=== PATIENT | male | born 1950 | race Caucasian/White ===

== ENCOUNTER 2020-08-24 11:20 | Outpatient (REF) | payer MEDICARE, MEDICAID, SELFPAY | END 2020-08-24 11:21 | disposition home or self-care (01) | LOC: HO.LAB 11:20 | PROVIDERS: Visit Provider Internal Medicine | DX: Z20.822 Contact with and (suspected) exposure to COVID-19 (principal) | CPT/HCPCS: 36415; C9803; U0003 ==

== ENCOUNTER 2020-10-04 16:35 | Outpatient (REF) | payer MEDICARE, MEDICAID, SELFPAY ==
--- NOTE | ~2020-10-04 | XR_ITS ---
EXAMINATION: XR LUMBOSACRAL SPINE CLINICAL INFORMATION: Spondylosis. Pain. COMPARISON: None TECHNIQUE: Four views of the lumbosacral spine. FINDINGS: There is maintained lumbar lordosis. The vertebral heights and alignment appears normal. There is severe loss of disc height virtually at every disc level with moderate ventral and lateral spondylosis and bridging osteophytes. There is minimal dextroscoliosis. No acute fracture or lytic process seen. There is atherosclerotic calcification of the entire abdominal aorta and common iliac vessels without aneurysm. XR/XR lumbar spine 2-3V IMPRESSION: 1. Mild dextroscoliosis. 2. Severely degenerative disc changes with moderate ventral and lateral spondylosis. 3. No acute fracture or lytic process.
[2020-10-04 17:52] LABS: Estimated Average Glucose 160 mg/dL; Hemoglobin A1c % 7.2 %
[2020-10-04 17:55] LABS: Anion Gap 13 (12-20); Blood Urea Nitrogen 29 mg/dL (9-16); Calcium 8.9 mg/dL (8.4-10.2); Carbon Dioxide 38 mmol/L (22-29); Chloride 94 mmol/L (96-108); Cholesterol 180 mg/dL; Estimated Glomerular Filt Rate 42; Glucose Random 127 mg/dL (60-115); HDL Cholesterol 33 mg/dL; Potassium 4.2 mmol/L (3.3-5.1); Sodium 141 mmol/L (135-145); Triglycerides 634 mg/dL
== END 2020-10-04 16:36 | disposition home or self-care (01) ==
LOC: HO.LAB 16:35
PROVIDERS: PCP Physician Assistant; Referring Provider Student in an Organized Health Care Education/Training Program; Visit Provider Physician Assistant
DX: M47.897 Other spondylosis, lumbosacral region (principal); E11.51 Type 2 diabetes mellitus with diabetic peripheral angiopathy without gangrene; I10 Essential (primary) hypertension; Z79.899 Other long term (current) drug therapy
CPT/HCPCS: 36415; 72100; 80048; 80061; 83036

== ENCOUNTER 2021-01-01 12:24 | Emergency (ER) | payer MEDICARE, MEDICAID, SELFPAY ==
[2021-01-01 12:31] VITALS: BP 107/49; PULSE 45; RESP 16; TEMP 36.8; O2SAT 98; BMI 38.6
--- NOTE | 2021-01-01 12:40 | ECG_ITS ---
Test Reason : DIZZINESS Blood Pressure : / mmHG Vent. Rate : 047 BPM Atrial Rate : 047 BPM P-R Int : 206 ms QRS Dur : 152 ms QT Int : 562 ms P-R-T Axes : 056 021 107 degrees QTc Int : 497 ms Sinus bradycardia Left bundle branch block Abnormal ECG When compared with ECG of 26-MAR-2020 17:37, No significant change was found Referred By: Generic ED Physician Electronically Signed By:KEVIN HASSAN
--- NOTE | 2021-01-01 13:41 | ED.DIZZY ---
HPI - Dizziness General Chief Complaint: Dizziness Stated Complaint: lightheaded Time Seen by Provider: 01/01/21 13:13 Source: patient and other (Significant other, Inge) Mode of arrival: ambulatory Limitations: no limitations History of Present Illness HPI Narrative: 70-year-old male who presents emergency department for evaluation of lightheadedness. He states that this morning at around 10:00 a.m. she developed lightheadedness. He denies the sensation of feeling like he was going to pass out or vertigo sensation. He states that he used his pulse oximeter to check his pulse and his pulse rate was 43-44 beats per minute. Patient states that he has a implanted cardiac defibrillator/pacemaker. He states when he initially had this implanted in 2018 his rate was set at 61 and then decreased to 51 since his [place] heartbeat was greater than 51. He continued to experience brief episodes of lightheadedness throughout the day. These episodes were not related to position change or to exertion. He denied being ill in any other way. He denied fever, chills, chest pain, shortness of breath, dyspnea on exertion, abdominal pain, change in his bowel movements-he states that he is constipated. Patient states that he goes to [facility] for his cardiac care and is treated by Dr. Reed Suarez at . Related Data Allergies Allergy/AdvReac Type Severity Reaction Status Date / Time No Known Allergies Allergy Unknown Verified 01/01/21 12:39 Review of Systems Review of Systems: Yes all other systems are reviewed and are negative [facility] Past Medical History [facility] Narrative: Past medical history: Diabetes mellitus, hypertension, hyperlipidemia, coronary artery disease/ID with a stent 2000, CHF, ventricular tachycardia with AICD/pacemaker. Past surgical history: Left hip replacement, right knee replacement, carotid endarterectomy. Social history: The patient is a former smoker and stop smoking 4 years prior, he denies alcohol use, he smokes marijuana daily. Medical History Diabetes Pacemaker Ventricular tachyarrhythmia Social History Social History Advance Directives: No Advance Directives Information Provided: Yes Physical Exam Vital Signs: Vital Signs: Last Vital Signs Temp 97.6 F 01/01/21 15:16 Pulse 47 L 01/01/21 15:16 Resp 14 01/01/21 15:16 BP 109/46 L 01/01/21 15:16 Pulse Ox 93 01/01/21 15:16 Body Mass Index 38.6 Const: General: cooperative Orientation/consciousness: oriented to person and oriented to place Limitations: no limitations HENMT: Head: Yes normal to inspection, Yes normocephalic and Yes atraumatic Ears: external ears normal General nose exam: Normal external nose present Face and sinus: Yes normal facial exam Mouth: Normal oral and palatal mucosa present Throat: Yes posterior oropharynx normal Eyes: Periorbital: periorbital findings normal Eyelids: Yes eyelids normal Conjunctivae: conjunctivae normal Sclerae: sclerae normal Corneas: corneas normal Pupils: Equal, round and reactive pupils present Direct Ophthalmoscopy: normal light reflex Neck: Neck: Yes full ROM, Yes no lymphadenopathy, Yes no meningeal signs, Yes trachea midline and Yes supple Chest: Chest palpation & inspection: normal inspection of the chest and normal palpation of entire chest wall Resp: Effort & Inspection: normal respiratory effort and able to speak in complete sentences Auscultation: clear to auscultation bilaterally Cardio: Rate: bradycardic Rhythm: regular rhythm Heart sounds: S1 normal heart sound present, S2 normal heart sound present and no murmurs GI: Inspection: Yes normal to inspection Palpation (GI): Soft to palpation, nontender, no guarding, not rigid and No hepatosplenomegaly present : General: Yes no CVA tenderness Back/Spine/Pelvis: Back: no CVA tenderness Cervical Spine: normal cervical lordosis Thoracic/Lumbar Spine: thoracic and lumbar spine normal to inspection Skin: Lesions: no lesions Rashes: no rashes Wounds: no wounds Neuro: General: oriented to person, oriented to place and no meningeal signs Cranial nerves: Yes CN's II-XII intact bilaterally and Yes Equal, round and reactive pupils present Cognition (Neuro): normal cognition Motor exam (neuro): 5/5 motor strength present throughout Extrem: General: Yes normal to inspection and Yes full ROM Psych: Appearance: well kempt Mental Status: mental status grossly normal Speech and movement: Normal speech and movement present Affect: normal affect Attitude: cooperative Thought process: Normal thought process present Thought content: Normal thought content present Course Course Course Narrative: 70-year-old male who presents emergency department for evaluation of episodic lightheadedness with multiple episodes today for throughout the day. These episodes are not related to position change or his exertion level. The patient does have an AICD/dual chamber pacemaker that he believes is set below his [place] heartbeat at 50 beats per minute. Patient's vital signs revealed that he was bradycardic with a heart rate below 50 with a pacemaker it is firing intermittently. Patient's blood pressure was slightly low at 107/49. The patient's physical examination was otherwise unremarkable. I did order a cardiac workup on this patient to to CBC, CMP, troponin, PT/INR, PTT. EKG will also be obtained. 1353: 12 EKG revealed a sinus bradycardia with first-degree AV block with a rate of 47 and CO interval of 206 milliseconds, patient has poor R-wave progression V1 through V3 and a left bundle-branch block. 1523: Patient's laboratory evaluation was unremarkable except for a detectable high sensitivity troponin. Given his presentation, I do not think the patient has had myocardial injury is the cause of his symptoms. The patient does remain persistently bradycardic with heart rates less than 50 however his pacemaker does kicking to give him occasional beats. I did discuss the patient's presentation with Dr. Peters who was covering for the patient's executive business coach. At this time, we both feel the patient can be discharged home and have his pacemaker interrogated as an outpatient. Patient was advised to call the office on Saturday morning to get a follow-up appointment. Told the patient to stay home and to rest. I told him if his symptoms get worse or if he develops any new symptoms he should return to the emergency department for re-evaluation MDM - Dizziness Lab Data Result diagrams: 01/01/21 14:02 01/01/21 14:02 Labs: Lab Results 01/01/21 01/01/21 01/01/21 Range/Units 14:02 14:02 14:02 WBC 12.5 H (4.8-10.8) X10*3/uL RBC 4.94 (4.60-5.80) X10*6/uL Hgb 15.0 (14.0-18.0) g/dl Hct 45.8 (42-52) % MCV 92.7 (80-98) fL MCH 30.4 (27.0-33.0) pg MCHC 32.8 (31.0-36.0) g/dl RDW 12.8 (11.0-16.0) % Plt Count 256 (160-400) X10*3/uL MPV 9.1 L (9.4-12.4) fL Immature Gran % (Auto) 0.5 H (0.0-0.4) % Neut % (Auto) 53.7 (45-73) % Lymph % (Auto) 39.1 (20-40) % Burnett % (Auto) 4.5 (2-11) % Eos % (Auto) 2.0 (0-4) % Baso % (Auto) 0.2 (0-2) % Lymph # (Auto) 4.9 (1.2-4.9) X10*3/uL Burnett # (Auto) 0.6 (0.1-1.2) X10*3/uL Eos # (Auto) 0.3 (0.0-0.4) X10*3/uL Baso # (Auto) 0.0 (0.0-0.2) X10*3/uL Abs Immat Gran (auto) 0.06 H (0.00-0.03) X10*3/uL Absolute Neuts (auto) 6.7 (2.0-8.3) X10*3/uL Absolute Nucleated RBC 0.000 (0.0-0.012) X10*3/uL Nucleated RBC % (auto) 0.0 (0.0-0.2) /100WBC PT (10.8-13.0) SEC INR (0.9-1.1) APTT (24.1-38.0) SEC Sodium 142 (135-145) mmol/L Potassium 3.9 (3.3-5.1) mmol/L Chloride 98 (96-108) mmol/L Carbon Dioxide 35 H (22-29) mmol/L Anion Gap 13 (12-20) BUN 34 H (9-16) mg/dL Creatinine 1.99 H (0.5-1.4) mg/dL Estim Creat Clear Calc 48.6 Estimated GFR 33 Random Glucose 122 H (60-115) mg/dL Calcium 9.2 (8.4-10.2) mg/dL Total Bilirubin 0.6 (0.0-1.0) mg/dL AST 25 (5-37) U/L ALT 24 (0-40) U/L Alkaline Phosphatase 117 (39-117) U/L Troponin I High Sens 17.6 (<3.5-35.0) ng/L Total Protein 7.1 (6.5-8.0) g/dL Albumin 4.3 (3.5-5.0) g/dL 01/01/21 Range/Units 14:03 WBC (4.8-10.8) X10*3/uL RBC (4.60-5.80) X10*6/uL Hgb (14.0-18.0) g/dl Hct (42-52) % MCV (80-98) fL MCH (27.0-33.0) pg MCHC (31.0-36.0) g/dl RDW (11.0-16.0) % Plt Count (160-400) X10*3/uL MPV (9.4-12.4) fL Immature Gran % (Auto) (0.0-0.4) % Neut % (Auto) (45-73) % Lymph % (Auto) (20-40) % Burnett % (Auto) (2-11) % Eos % (Auto) (0-4) % Baso % (Auto) (0-2) % Lymph # (Auto) (1.2-4.9) X10*3/uL Burnett # (Auto) (0.1-1.2) X10*3/uL Eos # (Auto) (0.0-0.4) X10*3/uL Baso # (Auto) (0.0-0.2) X10*3/uL Abs Immat Gran (auto) (0.00-0.03) X10*3/uL Absolute Neuts (auto) (2.0-8.3) X10*3/uL Absolute Nucleated RBC (0.0-0.012) X10*3/uL Nucleated RBC % (auto) (0.0-0.2) /100WBC PT 11.1 (10.8-13.0) SEC INR 0.9 (0.9-1.1) APTT 31.9 (24.1-38.0) SEC Sodium (135-145) mmol/L Potassium (3.3-5.1) mmol/L Chloride (96-108) mmol/L Carbon Dioxide (22-29) mmol/L Anion Gap (12-20) BUN (9-16) mg/dL Creatinine (0.5-1.4) mg/dL Estim Creat Clear Calc Estimated GFR Random Glucose (60-115) mg/dL Calcium (8.4-10.2) mg/dL Total Bilirubin (0.0-1.0) mg/dL AST (5-37) U/L ALT (0-40) U/L Alkaline Phosphatase (39-117) U/L Troponin I High Sens (<3.5-35.0) ng/L Total Protein (6.5-8.0) g/dL Albumin (3.5-5.0) g/dL ECG Data Attestation: I personally reviewed and interpreted this ECG as follows: Interpretation: 1302: Bradycardia with a rate of 47, first-degree AV block CO interval 206 milliseconds, prolonged QRS duration of 152 milliseconds and prolonged QTC of 497 milliseconds. The patient has a left bundle-branch block. He has poor R-wave progression from V1 to V3. There is no ST segment elevation, no ST segment depression, no T-wave abnormalities. There is no old EKG for comparison. Discharge Plan Discharge Clinical Impression: Light-headedness, Bradycardia Patient Disposition: Home, Self-Care Additional Instructions: Your laboratory evaluation was unremarkable. During your time here in the emergency department, we monitored you on the cardiac technician. You remained bradycardic with heart rates below 50. On the monitor, your pacemaker would kick in and occasionally give you paced beats suggesting that the pacemaker is working. I am concerned that you me need to have your pacemaker set at a higher rate or it is possible that your lightheadedness could be secondary to arrhythmia is that we did not detect in the emergency department. I did speak to Dr. Peters who is covering for your executive business coach. He wants you to call the office on 01/03/2021 to schedule appointment to be seen that day to have your pacemaker evaluated/interrogated. Please stay home and rest and do not over exert yourself. Please return to the emergency department if your symptoms get worse or if you develop any symptoms that are concerning to you.
[2021-01-01 13:51] VITALS: BP 102/49; BP 104/47; PULSE 45; PULSE 46
[2021-01-01 13:52] VITALS: BP 98/46; PULSE 48
[2021-01-01 14:09] LABS: MANUAL DIFF FLAG NO
[2021-01-01 14:11] LABS: Basophils Percent Auto 0.2 % (0-2); Eosinophils Absolute Auto 0.3 X10*3/uL (0.0-0.4); Hematocrit 45.8 % (42-52); Imm Gran Abs Auto 0.06 X10*3/uL (0.00-0.03); Imm Gran Pct Auto 0.5 % (0.0-0.4); Lymphocytes Absolute Auto 4.9 X10*3/uL (1.2-4.9); Lymphocytes Percent Auto 39.1 % (20-40); Mean Corpuscular HGB Conc 32.8 g/dl (31.0-36.0); Mean Corpuscular Hemoglobin 30.4 pg (27.0-33.0); Mean Corpuscular Volume 92.7 fL (80-98); Mean Platelet Volume 9.1 fL (9.4-12.4); Monocytes Absolute Auto 0.6 X10*3/uL (0.1-1.2); Monocytes Percent Auto 4.5 % (2-11); Neutrophils Absolute Auto 6.7 X10*3/uL (2.0-8.3); Neutrophils Percent Auto 53.7 % (45-73); Platelet Count 256 X10*3/uL (160-400); Red Blood Count 4.94 X10*6/uL (4.60-5.80); Red Cell Distribution Width 12.8 % (11.0-16.0); White Blood Count 12.5 X10*3/uL (4.8-10.8)
[2021-01-01 14:22] LABS: INTERNATIONAL NORM RATIO 0.9 (0.9-1.1); Prothrombin Time 11.1 SEC (10.8-13.0)
[2021-01-01 14:24] LABS: Partial Thromboplastin Time 31.9 SEC (24.1-38.0)
[2021-01-01 14:37] LABS: Alanine Aminotransferase 24 U/L (0-40); Albumin Level 4.3 g/dL (3.5-5.0); Alkaline Phosphatase 117 U/L (39-117); Anion Gap 13 (12-20); Aspartate Amino Transferase 25 U/L (5-37); Bilirubin Total 0.6 mg/dL (0.0-1.0); Blood Urea Nitrogen 34 mg/dL (9-16); Calcium 9.2 mg/dL (8.4-10.2); Carbon Dioxide 35 mmol/L (22-29); Chloride 98 mmol/L (96-108); Creatinine Clr Calc Pharmacy 48.6; Estimated Glomerular Filt Rate 33; Glucose Random 122 mg/dL (60-115); Potassium 3.9 mmol/L (3.3-5.1); Sodium 142 mmol/L (135-145); Total Protein 7.1 g/dL (6.5-8.0)
[2021-01-01 14:40] LABS: Troponin-I High Sensitivity 17.6 ng/L (<3.5-35.0)
[2021-01-01 15:16] VITALS: BP 109/46; PULSE 47; RESP 14; TEMP 36.4; O2SAT 93
== END 2021-01-01 15:46 | disposition home or self-care (01) ==
PROVIDERS: Emergency Provider Emergency Medicine Emergency Medical Services; PCP Physician Assistant
DX: R42 Dizziness and giddiness (principal); R00.1 Bradycardia, unspecified; I44.0 Atrioventricular block, first degree; E11.9 Type 2 diabetes mellitus without complications; I11.0 Hypertensive heart disease with heart failure; I50.9 Heart failure, unspecified; E78.5 Hyperlipidemia, unspecified; I25.2 Old myocardial infarction; F12.90 Cannabis use, unspecified, uncomplicated; Z95.0 Presence of cardiac pacemaker; Z96.642 Presence of left artificial hip joint; Z96.651 Presence of right artificial knee joint; Z87.891 Personal history of nicotine dependence
CPT/HCPCS: 36415; 80053; 84484; 85025; 85610; 85730; 93005; 99284

== ENCOUNTER 2021-01-25 13:55 | Emergency (ER) | payer MEDICARE, MEDICAID, SELFPAY ==
--- NOTE | ~2021-01-25 | XR_ITS ---
EXAMINATION: XR RIBS, LEFT CLINICAL INFORMATION: Left-sided rib pain. COMPARISON: Chest radiograph dated 03/26/2020. TECHNIQUE: 3 views of the left ribs were obtained. FINDINGS: Lungs are clear. No consolidation, pneumothorax, or pleural effusion. The cardiomediastinal silhouette and pulmonary vasculature are normal. A left-sided single-lead pacemaker device appears in good position without abnormality. Old healed lateral left 7th through 11th rib fractures are noted. A definitive acute fracture is not seen. The soft tissues are unremarkable. XR/XR ribs LT min 3V w CXR1V IMPRESSION: 1. No acute cardiopulmonary process. 2. Old healed multilevel left rib fractures as detailed above without definitive acute fracture.
--- NOTE | ~2021-01-25 | CT_ITS ---
EXAMINATION: CT HEAD WITHOUT CONTRAST CT FACIAL BONES WITHOUT CONTRAST CT CERVICAL SPINE WITHOUT CONTRAST CLINICAL INFORMATION: Fall. COMPARISON: CT head CT cervical spine 03/29/2020 TECHNIQUE: Imaging was performed from the skull base to vertex without intravenous administration of contrast. In addition, helical noncontrast CT imaging was acquired through the cervical spine and facial bones and source images were reviewed along with axial reconstructions and sagittal and coronal MPRs. [This CT examination was performed using dose optimization techniques as appropriate, variously including the following: *Automated exposure control *Adjustment of mA and/or kV according to patient size (this includes techniques or standardized protocols for targeted exams where dose is matched to indication/reason for exam; i.e. extremities or head) *Use of iterative reconstruction technique] DLP: 1904 mGy-cm FINDINGS: HEAD: No intracranial mass, hemorrhage, or midline shift is visualized. There is generalized global volume loss. There is moderate prominence of the ventricles and the sulci . There are vascular calcifications of the internal carotid arteries bilaterally. No extra-axial collections are identified. FACIAL BONES: There is fracture of the inferior floor of the left orbit, blowout fracture. There is air in the left orbital cone. The globe in optic nerve are normal. There is no entrapment of the extraocular muscles. There is left orbital Remainder the facial bones are intact including the mandible and TMJ and zygomatic arch. Pterygoid plates are intact. No fluid in the paranasal sinuses. Moderate exophthalmos. CERVICAL SPINE: There is no evidence of acute cervical spine fracture. Vertebral bodies remain normal in height. There is multilevel degenerative spondylosis of the cervical spine. Cervical disc height narrowing and vertebral endplate spurs and facet joint arthrosis. No pre- or paravertebral soft tissue abnormality is identified. CT/CT cervical spine wo con IMPRESSION: 1. No acute intracranial abnormality. 2. Left orbital blowout fracture. 3. No acute abnormality of cervical spine. There is advanced degenerative spondylosis of the cervical spine.
[2021-01-25 14:21] VITALS: BP 94/50; PULSE 51; RESP 17; TEMP 36.8; O2SAT 92; BMI 38.2
--- NOTE | 2021-01-25 16:04 | ED.FALL ---
HPI - Fall General Chief Complaint: Fall Stated Complaint: fell Time Seen by Provider: 01/25/21 15:53 Source: patient Mode of arrival: ambulatory Limitations: no limitations History of Present Illness HPI Narrative: Patient comes to emergency room complaining of left ear swelling. Patient states that 1 hour prior to arrival, patient was walking, tripped on the sidewalk, states he fell face 1st into the concrete. Patient states he initially had ecchymosis under his left eye, also noticed that he had epistaxis from the left nostril. Patient blew his nose, and immediately he felt that his left eye started swelling . Patient denies any visual changes, denies pain with eye movement. Patient did not lose consciousness, states he is not on blood thinners, denies neck pain, also complaining of mild pain in the left ribs. Related Data Previous Rx's Medication Instructions Recorded amoxicillin-pot clavulanate 1 tab PO BID #20 tab 01/25/21 [Augmentin] oxycodone-acetaminophen [Percocet] 1 tab PO Q6H PRN #14 tab 01/25/21 Allergies Allergy/AdvReac Type Severity Reaction Status Date / Time No Known Allergies Allergy Unknown Verified 01/25/21 14:21 Review of Systems Review of Systems: Constitutional : No Weight loss, No Fever, No Chills, No Night Sweats, No Fatigue, No Malaise ENT/Mouth : No Hearing loss, No Ear Pain, No Nasal Congestion, No Sinus Pain, No Hoarseness, No sore throat, No Rhinorrhea, No Swallowing Difficulty Eyes: No Eye Pain, periorbital swelling and ecchymosis, No Redness, No Foreign Body, No Discharge, No Vision Changes Cardiovascular : No Chest Pain, No SOB, No Dyspnea on Exertion, No Orthopnea, No Edema, No Palpitations Respiratory : No Cough, No Sputum, No Wheezing, No Smoke Exposure, No Dyspnea Gastrointestinal : No Nausea, No Vomiting, No Diarrhea, No Constipation, No abdominal Pain, No Hematochezia, No Melena Genitourinary : no irregular bleeding, No Dysuria, No Urinary Frequency, No Hematuria, No Urinary Incontinence, No Urgency, No Flank Pain, No Urinary Flow Changes, No Hesitancy Musculoskeletal : No joint pain, No Myalgias, No Joint Swelling, complaining of left-sided rib pain Skin : No Skin Lesions, No rash Neuro : No Weakness, No Numbness, No Paresthesias, No Loss of Consciousness, No Dizziness, No Headache Psych : No Anxiety/Panic, No Depression, No SI/HI/AH/VH, No Social Issues, Heme/Lymph: No Bruising, No Bleeding,No Lymphadenopathy Endocrine : No Polyuria, No Polydipsia, No Temperature Intolerance PMFSH Past Medical History Medical History Diabetes Pacemaker Ventricular tachyarrhythmia Surgical History H/O carotid endarterectomy History of heart artery stent History of hip replacement Total knee replacement status Social History Social History Advance Directives: No Advance Directives Information Provided: Yes Physical Exam Vital Signs: Vital Signs: Last Vital Signs Temp 98.3 F 01/25/21 14:21 Pulse 54 01/25/21 18:22 Resp 17 01/25/21 18:22 BP 134/65 01/25/21 18:22 Pulse Ox 95 01/25/21 18:22 Body Mass Index 38.2 Appearance: Alert. Oriented X3. No acute distress. Eyes: Pupils equal, round and reactive to light. Significantly enlarged ecchymosis on the left eye, mild crepitus under the left eye ENT: Pharynx normal. Neck: Normal inspection. Neck supple. No lymph nodes noted. No crepitus CVS: Normal heart rate and rhythm. Pulses normal. Normal S1 and S2 Respiratory: No respiratory distress. Breath sounds normal. No Wheezing. No rales Abdomen: Soft and nontender. No rigidity. No distention. good BS x4 Skin: Skin warm and dry. Normal skin color. Normal skin turgor. Extremities: No lower extremity edema. No lower extremity edema. No Lacerations. No Rash Neuro: Oriented X 3. No motor deficit. No sensory deficit. Moving all extermities. No slurred speech. Course Course Course Narrative: Patient's visual acuity test was 20/40 while wearing his glasses. Patient states that his vision is at baseline. Patient continues being able to move his bowels with no restriction, no pain. Entrapment of the extraocular muscles is not suspected at this time Creatinine is at baseline I discussed the patient's CT scan findings and the physical exam with Dr. Guevara. At this time, patient can be discharged after getting antibiotics and pain medication. Patient will follow-up with Dr. Guevara. Patient received the 1st dose of Augmentin and oxycodone. Patient was instructed not to blow his nose. Epistaxis resolved. I discussed with the patient that he is not to blow his nose at all MDM - Fall Lab Data Result diagrams: 01/25/21 17:47 01/25/21 17:46 Labs: Lab Results 01/25/21 01/25/21 01/25/21 Range/Units 17:46 17:46 17:47 WBC 13.0 H (4.8-10.8) X10*3/uL RBC 4.93 (4.60-5.80) X10*6/uL Hgb 14.7 (14.0-18.0) g/dl Hct 45.6 (42-52) % MCV 92.5 (80-98) fL MCH 29.8 (27.0-33.0) pg MCHC 32.2 (31.0-36.0) g/dl RDW 13.1 (11.0-16.0) % Plt Count 222 (160-400) X10*3/uL MPV 9.0 L (9.4-12.4) fL Immature Gran % (Auto) 0.6 H (0.0-0.4) % Neut % (Auto) 56.0 (45-73) % Lymph % (Auto) 36.6 (20-40) % Gilliam % (Auto) 4.8 (2-11) % Eos % (Auto) 1.7 (0-4) % Baso % (Auto) 0.3 (0-2) % Lymph # (Auto) 4.8 (1.2-4.9) X10*3/uL Gilliam # (Auto) 0.6 (0.1-1.2) X10*3/uL Eos # (Auto) 0.2 (0.0-0.4) X10*3/uL Baso # (Auto) 0.0 (0.0-0.2) X10*3/uL Abs Immat Gran (auto) 0.08 H (0.00-0.03) X10*3/uL Absolute Neuts (auto) 7.3 (2.0-8.3) X10*3/uL Absolute Nucleated RBC 0.000 (0.0-0.012) X10*3/uL Nucleated RBC % (auto) 0.0 (0.0-0.2) /100WBC PT 12.4 (10.8-13.0) SEC INR 1.0 (0.9-1.1) Sodium 141 (135-145) mmol/L Potassium 3.6 (3.3-5.1) mmol/L Chloride 99 (96-108) mmol/L Carbon Dioxide 32 H (22-29) mmol/L Anion Gap 14 (12-20) BUN 24 H (9-16) mg/dL Creatinine 1.54 H (0.5-1.4) mg/dL Estim Creat Clear Calc 62.5 Estimated GFR 45 Random Glucose 158 H (60-115) mg/dL Calcium 9.3 (8.4-10.2) mg/dL Imaging Data Ribs and chest x-ray: Radiologist's impression: [address] [id number] ReportSigned Patient: Michael SalinasMR#: [id number]: 1950cct:[id number]/Sex: 70 / MADM Date: 01/25/21Loc: HO.EDAttending Dr: Ordering Physician: TREASURE WATSON MD Date of Service: 01/25/21 Procedure(s): XR ribs LT min 3V w CXR1V Accession Number(s): [id number] cc: TREASURE WATSON MD~ EXAMINATION: XR RIBS, LEFT CLINICAL INFORMATION: Left-sided rib pain. COMPARISON: Chest radiograph dated 03/26/2020. TECHNIQUE: 3 views of the left ribs were obtained. FINDINGS: Lungs are clear. No consolidation, pneumothorax, or pleural effusion. The cardiomediastinal silhouette and pulmonary vasculature are normal. A left-sided single-lead pacemaker device appears in good position without abnormality. Old healed lateral left 7th through 11th rib fractures are noted. A definitive acute fracture is not seen. The soft tissues are unremarkable. XR/XR ribs LT min 3V w CXR1V IMPRESSION: 1. No acute cardiopulmonary process. 2. Old healed multilevel left rib fractures as detailed above without definitive acute fracture. Head neck and facial bone CT: Radiologist's impression: FINDINGS: Lungs are clear. No consolidation, pneumothorax, or pleural effusion. The cardiomediastinal silhouette and pulmonary vasculature are normal. A left-sided single-lead pacemaker device appears in good position without abnormality. Old healed lateral left 7th through 11th rib fractures are noted. A definitive acute fracture is not seen. The soft tissues are unremarkable. XR/XR ribs LT min 3V w CXR1V IMPRESSION: 1. No acute cardiopulmonary process. 2. Old healed multilevel left rib fractures as detailed above without definitive acute fracture. Discharge Plan Discharge Clinical Impression: Epistaxis, Acute costochondritis Fracture of orbital floor Qualifiers: Encounter type: initial encounter Laterality: left Patient Disposition: Home, Self-Care Instructions: Facial Fracture (ED), Nosebleed (ED), Costochondritis (ED) Additional Instructions: Do not blow your nose. Please follow-up with ophthalmology tomorrow. Please follow-up with your primary care physician tomorrow. If you have any worsening or new symptoms, please return to the emergency room or call 911 Prescriptions: New amoxicillin-pot clavulanate [Augmentin] 875-125 mg tablet 1 tab PO BID Qty: 20 RF: 0 oxycodone-acetaminophen [Percocet] 5-325 mg tablet 1 tab PO Q6H PRN (Reason: pain) Qty: 14 RF: 0
[2021-01-25] MEDS: Oxymetazoline HCl 0.05 % Nasal 15 ML SPRAY 2 SPRAY NOSTRIL-B (16:27)
[2021-01-25 17:52] LABS: MANUAL DIFF FLAG NO
[2021-01-25 17:56] LABS: Basophils Percent Auto 0.3 % (0-2); Eosinophils Absolute Auto 0.2 X10*3/uL (0.0-0.4); Eosinophils Percent Auto 1.7 % (0-4); Hematocrit 45.6 % (42-52); Hemoglobin 14.7 g/dl (14.0-18.0); Imm Gran Abs Auto 0.08 X10*3/uL (0.00-0.03); Imm Gran Pct Auto 0.6 % (0.0-0.4); Lymphocytes Absolute Auto 4.8 X10*3/uL (1.2-4.9); Lymphocytes Percent Auto 36.6 % (20-40); Mean Corpuscular HGB Conc 32.2 g/dl (31.0-36.0); Mean Corpuscular Hemoglobin 29.8 pg (27.0-33.0); Mean Corpuscular Volume 92.5 fL (80-98); Monocytes Absolute Auto 0.6 X10*3/uL (0.1-1.2); Monocytes Percent Auto 4.8 % (2-11); Neutrophils Absolute Auto 7.3 X10*3/uL (2.0-8.3); Platelet Count 222 X10*3/uL (160-400); Red Blood Count 4.93 X10*6/uL (4.60-5.80); Red Cell Distribution Width 13.1 % (11.0-16.0)
[2021-01-25 17:59] LABS: Prothrombin Time 12.4 SEC (10.8-13.0)
[2021-01-25 18:12] LABS: Anion Gap 14 (12-20); Blood Urea Nitrogen 24 mg/dL (9-16); Calcium 9.3 mg/dL (8.4-10.2); Carbon Dioxide 32 mmol/L (22-29); Chloride 99 mmol/L (96-108); Creatinine Clr Calc Pharmacy 62.5; Estimated Glomerular Filt Rate 45; Glucose Random 158 mg/dL (60-115); Potassium 3.6 mmol/L (3.3-5.1); Sodium 141 mmol/L (135-145)
[2021-01-25 18:22] VITALS: BP 134/65; PULSE 54; RESP 17; O2SAT 95
--- NOTE | 2021-01-25 18:24 | PC.NURSE ---
ICE PACK TO LEFT FACE/EYE. GENTLY APPLY TOLL.
[2021-01-25] MEDS: oxyCODONE HCl Immed Release 5 MG TABLET PO (18:49)
[2021-01-25] MEDS: Amoxicillin/Potassium Clav 875 MG TABLET PO (18:49)
== END 2021-01-25 19:10 | disposition home or self-care (01) ==
PROVIDERS: Emergency Provider Emergency Medicine; PCP Physician Assistant
DX: S02.32XA Fracture of orbital floor, left side, initial encounter for closed fracture (principal); M94.0 Chondrocostal junction syndrome [Tietze]; E11.9 Type 2 diabetes mellitus without complications; Z95.0 Presence of cardiac pacemaker; W01.0XXA Fall on same level from slipping, tripping and stumbling without subsequent striking against object, initial encounter; Y93.01 Activity, walking, marching and hiking; Y92.480 Sidewalk as the place of occurrence of the external cause; Y99.9 Unspecified external cause status
CPT/HCPCS: 36415; 51701; 70450; 70486; 71101; 72125; 80048; 85025; 85610; 99284; 99285

== ENCOUNTER 2021-05-17 13:05 | Outpatient (REF) | payer MEDICARE, MEDICAID, SELFPAY ==
--- NOTE | ~2021-05-17 | US_ITS ---
EXAMINATION: US EXTRACRANIAL CAROTID DUPLEX, BILATERAL CLINICAL INFORMATION: Atherosclerosis COMPARISON: Carotid duplex on 01/25/2013 TECHNIQUE: Real-time ultrasound and Doppler techniques (integrating B-mode 2-D vascular images, Doppler spectral analysis and color-flow Doppler imaging) were utilized to interrogate the extracranial carotid arteries, the vertebral arteries and proximal subclavian arteries bilaterally. The degree of stenosis is determined by criteria similar to NASCET. FINDINGS: Right Side: 1. There is heterogeneous atherosclerotic plaque seen in the bifurcation/proximal ICA region. 2. The common carotid artery PSV proximally is 140 cm/s and distally 83 cm/s. 3. The proximal internal carotid artery velocities are 57 cm/s systolic and 20 cm/s diastolic. 4. The proximal external carotid artery PSV is 105 cm/s. 5. The vertebral artery shows antegrade flow. 6. The subclavian artery waveforms are normal. Left Side: 1. There is heterogeneous atherosclerotic plaque seen in the bifurcation/proximal ICA region. 2. The common carotid artery PSV proximally is 80 cm/s and distally 102 cm/s. 3. The proximal internal carotid artery velocities are 351 cm/s systolic and 134 cm/s diastolic. 4. The proximal external carotid artery PSV is 95 cm/s. 5. The vertebral artery shows antegrade flow. 6. The subclavian artery waveforms are normal. US/US carotid duplex BI IMPRESSION: 1. RIGHT: Minimal, non-hemodynamically significant stenosis of the proximal right internal carotid artery corresponding to a 0-49% stenosis by velocity criteria. 2. LEFT: Severe, hemodynamically significant stenosis of the proximal left internal carotid artery corresponding to an 80-99% stenosis by velocity criteria. 3. Progression of disease on the left lung compared to 01/25/2013.
== END 2021-05-17 13:06 | disposition home or self-care (01) ==
LOC: HO.US 13:05
PROVIDERS: PCP Physician Assistant; Visit Provider Physician Assistant
DX: I65.22 Occlusion and stenosis of left carotid artery (principal); I25.10 Atherosclerotic heart disease of native coronary artery without angina pectoris; Z86.79 Personal history of other diseases of the circulatory system
CPT/HCPCS: 93880

== ENCOUNTER 2021-08-20 11:00 | Inpatient (IN) | payer MEDICARE, MEDICAID, SELFPAY ==
--- NOTE | ~2021-08-20 | XR_ITS ---
EXAMINATION: XR KNEE, RIGHT CLINICAL INFORMATION: Bacteremia, right knee prosthesis COMPARISON: None TECHNIQUE: AP and crosstable lateral projections of the right knee are obtained. FINDINGS: There is been prior knee arthroplasty. The hardware is intact. There is no destructive process or periostitis or osteolysis. No gas tracking in the soft tissues. Moderate suprapatellar effusion is present. Hoffa's fat pad appears normal. XR/XR knee RT 2V IMPRESSION: Status post knee arthroplasty. Hardware intact. No destructive process. Moderate suprapatellar effusion.
--- NOTE | ~2021-08-20 | CT_ITS ---
EXAMINATION: CT LUMBAR SPINE WITH CONTRAST CLINICAL INFORMATION: MRSA bacteremia. Back pain. COMPARISON: CT abdomen and pelvis from 08/20/2021 and 03/21/2010. Lumbar spine radiographs from 10/04/2020. TECHNIQUE: Multidetector helical imaging of the lumbar spine was obtained following the administration of 85 mL Omnipaque 350 intravenous contrast.. Multiple axial reformats and coronal/sagittal reconstructions were created the technologist workstation for review. This CT examination was performed using dose optimization techniques as appropriate, variously including the following: *Automated exposure control. *Adjustment of mA and/or kV according to patient size (this includes techniques or standardized protocols for targeted exams where dose is matched to indication/reason for exam; i.e. extremities or head). *Use of iterative reconstruction technique. DLP: 1095 mGy-cm FINDINGS: Mild right convex curvature of the lumbar spine. Reversal the normal lumbar lordosis. Mild degenerative retrolistheses of L3 on L4 and L4 on L5. Mild degenerative grade 1 anterolisthesis of L5 on S1 with chronic bilateral L5 pars interarticularis defects. No evidence of acute fracture or traumatic subluxation. Advanced degenerative disc disease from L1-L4. Moderate degenerative disc disease from T11-L1 and at L4-L5. Vacuum disc phenomenon is noted at T10-T11 and from L1-L5. Schmorl's nodes are noted from L1-L4. Otherwise, the vertebral body heights are largely maintained. No suspicious lytic or sclerotic osseous lesions. No demonstrated overt erosive changes. Moderate subcutaneous edema within the soft tissues of the back from T12-L5. No discrete fluid collection. No additional significant abnormalities of the prevertebral or posterior paraspinal soft tissues. Limited evaluation of the intra-abdominal structures without significant abnormalities. The abdominal aorta is of normal contour and caliber with heavy calcific atherosclerotic disease. Partially visualized AICD pacemaker and left-sided total hip arthroplasty. AXIAL SPINAL LEVELS: T12-L1: Mild diffuse disc bulge. There is moderate right worse than left facet joint arthropathy. There is no neural foraminal stenosis. There is no demonstrated spinal canal stenosis. L1-L2: Moderate diffuse disc bulge with posterior osseous ridging. There is severe right and moderate left facet joint arthropathy with ligamentum flavum hypertrophy. There is moderate left and mild right neural foraminal stenosis. There appears to be moderate to severe spinal canal stenosis. L2-L3: Prominent diffuse disc bulge with posterior osseous ridging. There is severe left and moderate right facet joint arthropathy. There is moderate left and mild right neural foraminal stenosis. There appears to be moderate to severe spinal canal stenosis. L3-L4: Prominent diffuse disc bulge with posterior osseous ridging. There is severe bilateral facet joint arthropathy. There is moderate left worse than right neural foraminal stenosis. There appears to be moderate to severe spinal canal stenosis. L4-L5: Prominent diffuse disc bulge with posterior osseous ridging. There is severe bilateral facet joint arthropathy. There is severe bilateral neural foraminal stenosis. There appears to be severe spinal canal stenosis. L5-S1: Moderate diffuse disc bulge exacerbated by uncovering from anterolisthesis. There is severe bilateral facet joint arthropathy. There is moderate to severe bilateral neural foraminal stenosis. There appears to be moderate to severe spinal canal stenosis. CT/CT lumbar spine w con IMPRESSION: 1. No evidence of acute fracture or traumatic subluxation of the lumbar spine. Chronic bilateral L5 pars interarticularis defects. 2. No demonstrated overt osseous erosive change or paraspinal collection to strongly suggest active infection. 3. 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 Most notably on this limited exam without intrathecal contrast, there appears to be moderate to severe spinal canal stenoses from L1-S1. Moderate to severe neural foraminal stenoses from L1-S1 (worst at L4-L5 and L5-S1).
--- NOTE | ~2021-08-20 | XR_ITS ---
EXAMINATION: XR CHEST CLINICAL INFORMATION: Hypoxia COMPARISON: 08/20/2021 TECHNIQUE: Frontal view of the chest was obtained. FINDINGS: No acute finding. Lung puente are grossly clear. No obvious failure or infiltrate. There is no effusion. Pacer wire appears unchanged in position. Cardiac silhouette is comparable XR/XR chest 1V IMPRESSION: No acute finding
--- NOTE | ~2021-08-20 | XR_ITS ---
EXAMINATION: XR CHEST CLINICAL INFORMATION: Weakness COMPARISON: Multiple previous chest x-rays with the last chest x-ray of 01/25/2021. Chest CT of 07/28/2019. TECHNIQUE: Frontal view of the chest was obtained. FINDINGS: A left-sided single lead AICD/pacemaker is again noted without change in appearance, the intact-appearing pacer lead terminates in the expected location of the right ventricle. Cardiomediastinal silhouette is stable with normal cardiac size. No abnormal tracheal deviation. The lungs are adequately expanded. Healed left 9th and 10th rib fractures are noted. No focal consolidation, changes of congestion, pleural effusions or pneumothorax are seen. XR/XR chest 1V IMPRESSION: No convincing radiographic evidence of pneumonia at this time. No acute pulmonary process.
--- NOTE | ~2021-08-20 | XR_ITS ---
EXAMINATION: XR CHEST CLINICAL INFORMATION: Low oxygen saturation COMPARISON: Previous chest x-ray most recent 08/24/2021 TECHNIQUE: Frontal view of the chest was obtained. FINDINGS: The cardiac and mediastinal contours are stable. There is a left subclavian pacemaker with lead projecting over the ventricle. The lungs are clear. There is no pleural effusion or pneumothorax. There are degenerative changes of the spine. XR/XR chest 1V IMPRESSION: No evidence for acute disease in the chest.
--- NOTE | ~2021-08-20 | CT_ITS ---
EXAMINATION: CT HEAD WITHOUT CONTRAST CLINICAL INFORMATION: Lethargy and weakness COMPARISON: CT 01/25/2021 TECHNIQUE: Contiguous axial imaging was performed from the skull base to vertex without intravenous administration of contrast. This CT examination was performed using dose optimization techniques as appropriate, variously including the following: *Automated exposure control *Adjustment of mA and/or kV according to patient size (this includes techniques or standardized protocols for targeted exams where dose is matched to indication/reason for exam; i.e. extremities or head) *Use of iterative reconstruction technique DLP: 862 mGy-cm FINDINGS: There is no evidence of acute intracranial hemorrhage or edematous territorial infarction. No abnormal mass effect or midline shift is seen. Reyes to white matter differentiation is well preserved. No extra-axial fluid collections are identified. No acute calvarial fracture. The mastoid air cells and visualized portions of the paranasal sinuses are well aerated. CT/CT head/brain wo con IMPRESSION: No CT evidence of acute edematous territorial infarction or intracranial hemorrhage. Further evaluation with CTA or MRI can be obtained as clinically warranted.
--- NOTE | ~2021-08-20 | US_ITS ---
EXAMINATION: US VENOUS ULTRASOUND WITH DOPPLER LOWER EXTREMITY, BILATERAL CLINICAL INFORMATION: Edema and fever COMPARISON: None TECHNIQUE: Ultrasound of the deep veins is performed from the hip to the calf with compression sonography and color and pulse Doppler assessment. Spectral analysis with color-flow imaging is performed. FINDINGS: RIGHT: There is normal venous compression and respiratory variation and augmented flow. The visualized common femoral vein, superficial femoral vein, profunda femoral vein, popliteal vein, and the trifurcation region shows no evidence of deep venous thrombosis. The peroneal vein is not visualized. There is no significant popliteal fossa cyst. LEFT: There is normal venous compression and respiratory variation and augmented flow. The visualized common femoral vein, superficial femoral vein, profunda femoral vein, popliteal vein, and the trifurcation region shows no evidence of deep venous thrombosis. The peroneal vein is not visualized. There is no significant popliteal fossa cyst. There is a small lymph node visualized in the left groin measuring 2.7 cm in length and 0.6 cm in width. If the patient's symptoms persist, followup ultrasound in 5 days 7 days might be of value to exclude proximal propagation from a non-visualized calf vein. US/US venous duplex LE BI IMPRESSION: No DVT demonstrated in the bilateral lower extremity. Bilateral peroneal veins were not visualized.
--- NOTE | ~2021-08-20 | CT_ITS ---
EXAMINATION: CT CHEST, ABDOMEN AND PELVIS WITHOUT CONTRAST CLINICAL INFORMATION: Reason for Exam leuokocytosis, weakness, loose stool COMPARISON: No pertinent prior studies are available for comparison. TECHNIQUE: Multidetector volumetric imaging was performed from the thoracic inlet through the pubic symphysis without IV contrast. Sagittal and coronal reformatted images were obtained on the technologist's workstation. This CT examination was performed using dose optimization techniques as appropriate, variously including the following: *Automated exposure control *Adjustment of mA and/or kV according to patient size (this includes techniques or standardized protocols for targeted exams where dose is matched to indication/reason for exam; i.e. extremities or head) *Use of iterative reconstruction technique DLP: 1483 mGy-cm FINDINGS: CHEST: Lung: Some tiny pulmonary nodules are present the largest measuring only 2 mm at the left apex (8:112). Images of all have been saved as sainz images. Chest Wall/Axilla: A left chest wall pacemaker is present. An abnormal chest wall mass or axillary adenopathy is not present. Pericardium/Pleura: No significant effusion. No pleural mass or thickening. Mediastinum: A single lead pacemaker is present. Extensive coronary calcifications are present. Heart size normal. No mediastinal or hilar lymphadenopathy. Some small paratracheal and AP window lymph nodes are seen. ABDOMEN/PELVIS: Peritoneal Space: No significant free air or free fluid identified. Liver, Gallbladder, Biliary Tree: The liver is normal in size, shape, and attenuation. No focal hepatic lesion or biliary ductal dilatation is present. The gallbladder is unremarkable with no evidence of radiopaque gallstones, gallbladder wall thickening, or obvious pericholecystic inflammatory changes. Pancreas: Unremarkable Spleen: Unremarkable Adrenal Glands: The adrenal glands are symmetrically nodular thickened Kidneys and Ureters: The kidneys are normal in size, shape, and attenuation. Intrarenal calcifications seen in the right kidney I suspect are renal vascular. Some smaller punctate collecting system calculi cannot be excluded. No hydronephrosis, hydroureter, or left-sided or ureteral calculi seen. Tiny left renal vascular calcification seen. No perinephric stranding. Bladder: Unremarkable Gastrointestinal Tract: The small and large bowel are unremarkable. The appendix is unremarkable. Abdominal Wall: No significant hernia is appreciated. Lymph Nodes: No lymphadenopathy. Vascular: Severe calcific atherosclerotic changes present in the aorta and iliofemoral vessels. I suspect that there are near occlusive stenoses present in the left external iliac artery (12:623) as well as the right common femoral artery (12:709).These vascular changes have progressed since 2010. No aneurysms are seen. The IVC appears unremarkable. PELVIC VISCERA: Unremarkable OSSEUS STRUCTURES: A left total hip prosthesis is present. Moderate degenerative changes present in the right hip joint with large subchondral cyst formation. Degenerative changes noted throughout the spine with scoliosis convex to right. No bony destructive lesions are seen. Multiple old healed left rib fractures are present. CT/CT abdomen pelvis wo con IMPRESSION: An occult etiology for the patient's leukocytosis has not been found. Incidental findings including tiny pulmonary nodules, the largest 2 mm, probable renal vascular calcifications right kidney, severe atherosclerotic disease with vascular stenoses as described above and marked degenerative changes in the spine.
--- NOTE | 2021-08-20 11:06 | ED_ITS ---
HPI - Weakness General Chief complaint: Weakness Stated complaint: WEAKNESS Time Seen by Provider: 08/20/21 11:05 Source: patient, EMS and old records reviewed Mode of arrival: EMS Limitations: no limitations History of Present Illness HPI Narrative: 71 y/o male with history of CKD, DM on insulin, hypothyroidism, ventricular tachyarrythmia s/p PPM, CAD s/p stent, hx hip and knee replacement, hx carotid endarterectomy who presents to the ED from home via EMS with reports of generalized weakness that he noted when he woke up this morning. He reports when he woke up this morning and went to get out of bed he was unable to because he was so weak. He denies any focal weakness, numbness or tingling. No speech difficulties. He thinks maybe the weakness is getting better since he woke up. He denies any fever, chills, N/V/D, abdominal pain, dysuria, cough, SOB, or chest pain. He is fully vaccinated and boosted for COVID-19. No known exposures. MD Complaint: generalized weakness Onset (ago): hour(s) Duration: improved Location: generalized Migration: none Severity: moderate Relieving factors: none Exacerbating factors: morning Associated symptoms: denies other symptoms Related Data Home Medications Medication Instructions Recorded Confirmed atorvastatin 80 mg tablet 1 tab PO DAILY 08/20/21 insulin glargine 100 unit/mL (3 unit SUBCUT 08/20/21 mL) subcutaneous pen (Lantus Solostar U-100 Insulin) levothyroxine 150 mcg tablet 1 tab PO QAM 08/20/21 metoprolol succinate 50 mg 1 tab PO DAILY 08/20/21 tablet,extended release 24 hr mexiletine 200 mg capsule 1 cap PO Q8H 08/20/21 pantoprazole 40 mg tablet,delayed 1 tab PO DAILY 08/20/21 release propranolol 120 mg capsule,24 1 cap PO DAILY 08/20/21 hr,extended release ranolazine 500 mg tablet,extended 1 tab PO BID 08/20/21 release,12 hr torsemide 20 mg tablet 2 tab PO TID 08/20/21 Allergies Allergy/AdvReac Type Severity Reaction Status Date / Time No Known Allergies Allergy Unknown Verified 01/25/21 14:21 Review of Systems Review of Systems: Constitutional: No Fever, No Chills ENT/Mouth: No sore throat, No Rhinorrhea, No Swallowing Difficulty Eyes: No Eye Pain, No Swelling, No Redness Cardiovascular: No Chest Pain, No SOB, No Orthopnea, No Edema Respiratory: No Cough, No Sputum, No Wheezing, No dyspnea Gastrointestinal: No Nausea, No Vomiting, No Diarrhea, No abdominal Pain, No Hematochezia, No Melena Genitourinary: No Dysuria, No Urinary Frequency, No Hematuria Musculoskeletal: No joint pain, No Myalgias Skin: No Skin Lesions, No rash Neuro: + Weakness, No Numbness, No Dizziness, No Headache Psych: No Anxiety/Panic, No Depression Heme/Lymph: No Bruising, No Lymphadenopathy Endocrine: No Polyuria, No Polydipsia PMFSH Past Medical History Medical History Diabetes Pacemaker Ventricular tachyarrhythmia Surgical History H/O carotid endarterectomy History of heart artery stent History of hip replacement Total knee replacement status Social History Social History Advance Directives: No Advance Directives Information Provided: Yes Physical Exam Vital Signs: Vital Signs: Last Vital Signs Temp 102.3 F H 08/20/21 19:17 Pulse 68 08/20/21 17:20 Resp 14 08/20/21 17:20 BP 132/52 L 08/20/21 17:20 Pulse Ox 94 08/20/21 17:20 BMI result Body Mass Index 36.3 Appearance: Alert elderly male sitting up in the wheelchair. Oriented X3. No acute distress. Eyes: Pupils equal, round and reactive to light. No nystagmus. ENT: Pharynx normal. Neck: Normal inspection. Neck supple. CVS: Normal heart rate and rhythm. Pulses normal. Left chest wall with palpable pacemaker, no overlying erythema or cellulitic changes. Respiratory: No respiratory distress. Breath sounds normal. Abdomen: Obese,Softly distended and nontender. +BS x4 Skin: Skin warm and dry. Normal skin color. Normal skin turgor. No rashes. Extremities: Trace. lower extremity edema. Left hip without any tenderness, erythema. Right knee without any tenderness, swelling or erythema. No evidence of joint infection. Neuro: Oriented X 3. clear speech, cranial nerves 2-12 intact. 4/5 LE strength, symmetrical. gait not tested in the waiting room. No upper extremity weakness. No sensory deficits. Course Course Course Narrative: 71 y/o male with history of CKD, DM on insulin, hypothyroidism, ventricular tachyarrythmia s/p PPM, CAD s/p stent, hx hip and knee replacement, hx carotid endarterectomy presents with generalized weakness. No other symptoms. Neuro exam is nonfocal. He appears well with unremarkable VS. Will get metabolic and infectious workup, EKG and monitor closely in the ED. He was evaluated in the waiting room - no bed available in the ED at this time. Reevaluation(s) Reevaluation #1: 1:09 pm - WBC 19K, BNP 400 and trop 34. No UA obtained yet. Patient still in the waiting room. Added lactic acid and blood cultures. afebrile and not tachycardic, no evidence of sepsis at this time. Reevaluation #2: 2 pm - patient brought back to hallway bed for now. IV established. Chemistry to be collected. CXR is clear. IV rocephin ordered for concern of possible UTI, still awaiting UA. He has prostatic left hip and right knee without signs of infection. Reevaluation #3: 4:30 - patient up and ambulating to the bathroom. feels improved. his UA is negative. case was d/w Dr. Churchill who recommended MARYJANE to assess for possible prostatitis. MARYJANE was negative for signs of prostatitis but very warm - rectal temperature 102.7. PO tylenol ordered as well as CT chest, abd, pelvis to assess for other possibilities of infection. will get viral PCR as well. patient will require admission. Additional Reevaluation(s): 6:45 pm - CT chest abdomen pelvis does not show any acute signs of infection. He has no headache, no confusion or altered mental status. No indications for lumbar puncture at this time. Given patient's fever and significant leukocytosis will admit for IV antibiotics and further monitoring. MDM - Weakness Medical Records Attestation: I reviewed the patient's medical records. Lab Data Attestation: I reviewed the patient's lab results. Result diagrams: 08/20/21 12:13 08/20/21 16:09 Labs: Lab Results 08/20/21 08/20/21 08/20/21 Range/Units 12:13 12:13 12:13 WBC 19.1 H (4.8-10.8) X10*3/uL RBC 5.10 (4.60-5.80) X10*6/uL Hgb 15.6 (14.0-18.0) g/dl Hct 46.6 (42.0-52.0) % MCV 91.4 (80.0-98.0) fL MCH 30.6 (27.0-33.0) pg MCHC 33.5 (31.0-36.0) g/dl RDW 13.1 (11.0-16.0) % Plt Count 144 L (160-400) X10*3/uL MPV 10.2 (9.4-12.4) fL Immature Gran % (Auto) 0.8 H (0.0-0.4) % Neut % (Auto) 81.2 H (45-73) % Lymph % (Auto) 12.9 L (20-40) % [place] % (Auto) 4.4 (2-11) % Eos % (Auto) 0.5 (0-4) % Baso % (Auto) 0.2 (0-2) % Lymph # (Auto) 2.5 (1.2-4.9) X10*3/uL [place] # (Auto) 0.8 (0.1-1.2) X10*3/uL Eos # (Auto) 0.1 (0.0-0.4) X10*3/uL Baso # (Auto) 0.0 (0.0-0.2) X10*3/uL Abs Immat Gran (auto) 0.15 H (0.00-0.03) X10*3/uL Absolute Neuts (auto) 15.5 H (2.0-8.3) x10*3/uL Absolute Nucleated RBC 0.000 (0.0-0.012) X10*3/uL Nucleated RBC % (auto) 0.0 (0.0-0.2) /100WBC PT (9.9-13.0) SEC INR (0.9-1.1) APTT (24.1-38.0) SEC Sodium (135-145) mmol/L Potassium (3.3-5.1) mmol/L Chloride (96-108) mmol/L Carbon Dioxide (22-29) mmol/L Anion Gap (12-20) BUN (9-16) mg/dL Creatinine (0.5-1.4) mg/dL Estim Creat Clear Calc Estimated GFR POC Glucose (60-115) mg/dL Random Glucose (60-115) mg/dL Lactic Acid (0.5-2.0) mmol/L Calcium (8.4-10.2) mg/dL Magnesium (1.6-2.6) mg/dL Total Bilirubin (0.0-1.0) mg/dL Direct Bilirubin (0.0-0.5) mg/dL AST (5-37) U/L ALT (0-40) U/L Alkaline Phosphatase (39-117) U/L Total Creatine Kinase (38-174) U/L Troponin I High Sens 34.1 (<3.5-35.0) ng/L B-Natriuretic Peptide 420 H (<100) pg/mL Total Protein (6.5-8.0) g/dL Albumin (3.5-5.0) g/dL TSH Urine Color Urine Appearance Urine pH (5.0-8.0) Ur Specific [place] (1.005-1.025) Urine Protein (NEG-TRACE) MG/DL Urine Glucose (UA) (NEG) MG/DL Urine Ketones (NEG) MG/DL Urine Blood (NEG) Urine Nitrite (NEG) Ur Leukocyte Esterase (NEG) Urine RBC (0) /HPF Urine WBC (0-4) /HPF Ur Squamous Epith Cells /LPF Urine Bacteria /LPF Urine Opiates Screen (Not Detect) Urine Fentanyl Screen (Not Detect) Ur Barbiturates Screen (Not Detect) Ur Phencyclidine Scrn (Not Detect) Ur Amphetamines Screen (Not Detect) U Benzodiazepines Scrn (Not Detect) Urine Cocaine Screen (Not Detect) U Marijuana (THC) Screen (Not Detect) COVID-19 (ALEXANDR) Negative (Negative) COVID-19 Clin Com See Note Influenza Type A (PCR) (Negative) Influenza Type B (PCR) (Negative) RSV RNA Qual (PCR) (Negative) SARS-CoV-2 RNA (RT-PCR) (Negative) 01/16/22 01/16/22 01/16/22 Range/Units 12:13 15:18 15:58 WBC (4.8-10.8) X10*3/uL RBC (4.60-5.80) X10*6/uL Hgb (14.0-18.0) g/dl Hct (42.0-52.0) % MCV (80.0-98.0) fL MCH (27.0-33.0) pg MCHC (31.0-36.0) g/dl RDW (11.0-16.0) % Plt Count (160-400) X10*3/uL MPV (9.4-12.4) fL Immature Gran % (Auto) (0.0-0.4) % Neut % (Auto) (45-73) % Lymph % (Auto) (20-40) % [place] % (Auto) (2-11) % Eos % (Auto) (0-4) % Baso % (Auto) (0-2) % Lymph # (Auto) (1.2-4.9) X10*3/uL [place] # (Auto) (0.1-1.2) X10*3/uL Eos # (Auto) (0.0-0.4) X10*3/uL Baso # (Auto) (0.0-0.2) X10*3/uL Abs Immat Gran (auto) (0.00-0.03) X10*3/uL Absolute Neuts (auto) (2.0-8.3) x10*3/uL Absolute Nucleated RBC (0.0-0.012) X10*3/uL Nucleated RBC % (auto) (0.0-0.2) /100WBC PT 12.3 (9.9-13.0) SEC INR 1.1 (0.9-1.1) APTT 23.1 L (24.1-38.0) SEC Sodium (135-145) mmol/L Potassium (3.3-5.1) mmol/L Chloride (96-108) mmol/L Carbon Dioxide (22-29) mmol/L Anion Gap (12-20) BUN (9-16) mg/dL Creatinine (0.5-1.4) mg/dL Estim Creat Clear Calc Estimated GFR POC Glucose 169 H (60-115) mg/dL Random Glucose (60-115) mg/dL Lactic Acid (0.5-2.0) mmol/L Calcium (8.4-10.2) mg/dL Magnesium (1.6-2.6) mg/dL Total Bilirubin (0.0-1.0) mg/dL Direct Bilirubin (0.0-0.5) mg/dL AST (5-37) U/L ALT (0-40) U/L Alkaline Phosphatase (39-117) U/L Total Creatine Kinase (38-174) U/L Troponin I High Sens (<3.5-35.0) ng/L B-Natriuretic Peptide (<100) pg/mL Total Protein (6.5-8.0) g/dL Albumin (3.5-5.0) g/dL TSH Cancelled Urine Color Urine Appearance Urine pH (5.0-8.0) Ur Specific [place] (1.005-1.025) Urine Protein (NEG-TRACE) MG/DL Urine Glucose (UA) (NEG) MG/DL Urine Ketones (NEG) MG/DL Urine Blood (NEG) Urine Nitrite (NEG) Ur Leukocyte Esterase (NEG) Urine RBC (0) /HPF Urine WBC (0-4) /HPF Ur Squamous Epith Cells /LPF Urine Bacteria /LPF Urine Opiates Screen (Not Detect) Urine Fentanyl Screen (Not Detect) Ur Barbiturates Screen (Not Detect) Ur Phencyclidine Scrn (Not Detect) Ur Amphetamines Screen (Not Detect) U Benzodiazepines Scrn (Not Detect) Urine Cocaine Screen (Not Detect) U Marijuana (THC) Screen (Not Detect) COVID-19 (ALEXANDR) (Negative) COVID-19 Clin Com Influenza Type A (PCR) (Negative) Influenza Type B (PCR) (Negative) RSV RNA Qual (PCR) (Negative) SARS-CoV-2 RNA (RT-PCR) (Negative) 08/20/21 08/20/21 08/20/21 Range/Units 16:09 16:09 16:41 WBC (4.8-10.8) X10*3/uL RBC (4.60-5.80) X10*6/uL Hgb (14.0-18.0) g/dl Hct (42.0-52.0) % MCV (80.0-98.0) fL MCH (27.0-33.0) pg MCHC (31.0-36.0) g/dl RDW (11.0-16.0) % Plt Count (160-400) X10*3/uL MPV (9.4-12.4) fL Immature Gran % (Auto) (0.0-0.4) % Neut % (Auto) (45-73) % Lymph % (Auto) (20-40) % [place] % (Auto) (2-11) % Eos % (Auto) (0-4) % Baso % (Auto) (0-2) % Lymph # (Auto) (1.2-4.9) X10*3/uL [place] # (Auto) (0.1-1.2) X10*3/uL Eos # (Auto) (0.0-0.4) X10*3/uL Baso # (Auto) (0.0-0.2) X10*3/uL Abs Immat Gran (auto) (0.00-0.03) X10*3/uL Absolute Neuts (auto) (2.0-8.3) x10*3/uL Absolute Nucleated RBC (0.0-0.012) X10*3/uL Nucleated RBC % (auto) (0.0-0.2) /100WBC PT (9.9-13.0) SEC INR (0.9-1.1) APTT (24.1-38.0) SEC Sodium 138 (135-145) mmol/L Potassium 3.5 (3.3-5.1) mmol/L Chloride 98 (96-108) mmol/L Carbon Dioxide 27 (22-29) mmol/L Anion Gap 17 (12-20) BUN 24 H (9-16) mg/dL Creatinine 1.42 H (0.5-1.4) mg/dL Estim Creat Clear Calc 66.9 Estimated GFR 49 POC Glucose (60-115) mg/dL Random Glucose 177 H (60-115) mg/dL Lactic Acid 1.9 (0.5-2.0) mmol/L Calcium 8.8 (8.4-10.2) mg/dL Magnesium 2.1 (1.6-2.6) mg/dL Total Bilirubin 1.0 (0.0-1.0) mg/dL Direct Bilirubin 0.4 (0.0-0.5) mg/dL AST 24 (5-37) U/L ALT 24 (0-40) U/L Alkaline Phosphatase 79 D (39-117) U/L Total Creatine Kinase 214 H (38-174) U/L Troponin I High Sens (<3.5-35.0) ng/L B-Natriuretic Peptide (<100) pg/mL Total Protein 6.2 L (6.5-8.0) g/dL Albumin 3.6 (3.5-5.0) g/dL TSH 0.41 Urine Color YELLOW Urine Appearance CLEAR Urine pH 6.0 (5.0-8.0) Ur Specific [place] <= 1.005 (1.005-1.025) Urine Protein NEG (NEG-TRACE) MG/DL Urine Glucose (UA) NEG (NEG) MG/DL Urine Ketones NEG (NEG) MG/DL Urine Blood TRACE (NEG) Urine Nitrite NEG (NEG) Ur Leukocyte Esterase NEG (NEG) Urine RBC 0-2 (0) /HPF Urine WBC 0 (0-4) /HPF Ur Squamous Epith Cells TRACE /LPF Urine Bacteria NONE /LPF Urine Opiates Screen (Not Detect) Urine Fentanyl Screen (Not Detect) Ur Barbiturates Screen (Not Detect) Ur Phencyclidine Scrn (Not Detect) Ur Amphetamines Screen (Not Detect) U Benzodiazepines Scrn (Not Detect) Urine Cocaine Screen (Not Detect) U Marijuana (THC) Screen (Not Detect) COVID-19 (ALEXANDR) (Negative) COVID-19 Clin Com Influenza Type A (PCR) (Negative) Influenza Type B (PCR) (Negative) RSV RNA Qual (PCR) (Negative) SARS-CoV-2 RNA (RT-PCR) (Negative) 08/20/21 08/20/21 Range/Units 16:41 17:31 WBC (4.8-10.8) X10*3/uL RBC (4.60-5.80) X10*6/uL Hgb (14.0-18.0) g/dl Hct (42.0-52.0) % MCV (80.0-98.0) fL MCH (27.0-33.0) pg MCHC (31.0-36.0) g/dl RDW (11.0-16.0) % Plt Count (160-400) X10*3/uL MPV (9.4-12.4) fL Immature Gran % (Auto) (0.0-0.4) % Neut % (Auto) (45-73) % Lymph % (Auto) (20-40) % [place] % (Auto) (2-11) % Eos % (Auto) (0-4) % Baso % (Auto) (0-2) % Lymph # (Auto) (1.2-4.9) X10*3/uL [place] # (Auto) (0.1-1.2) X10*3/uL Eos # (Auto) (0.0-0.4) X10*3/uL Baso # (Auto) (0.0-0.2) X10*3/uL Abs Immat Gran (auto) (0.00-0.03) X10*3/uL Absolute Neuts (auto) (2.0-8.3) x10*3/uL Absolute Nucleated RBC (0.0-0.012) X10*3/uL Nucleated RBC % (auto) (0.0-0.2) /100WBC PT (9.9-13.0) SEC INR (0.9-1.1) APTT (24.1-38.0) SEC Sodium (135-145) mmol/L Potassium (3.3-5.1) mmol/L Chloride (96-108) mmol/L Carbon Dioxide (22-29) mmol/L Anion Gap (12-20) BUN (9-16) mg/dL Creatinine (0.5-1.4) mg/dL Estim Creat Clear Calc Estimated GFR POC Glucose (60-115) mg/dL Random Glucose (60-115) mg/dL Lactic Acid (0.5-2.0) mmol/L Calcium (8.4-10.2) mg/dL Magnesium (1.6-2.6) mg/dL Total Bilirubin (0.0-1.0) mg/dL Direct Bilirubin (0.0-0.5) mg/dL AST (5-37) U/L ALT (0-40) U/L Alkaline Phosphatase (39-117) U/L Total Creatine Kinase (38-174) U/L Troponin I High Sens (<3.5-35.0) ng/L B-Natriuretic Peptide (<100) pg/mL Total Protein (6.5-8.0) g/dL Albumin (3.5-5.0) g/dL TSH Urine Color Urine Appearance Urine pH (5.0-8.0) Ur Specific [place] (1.005-1.025) Urine Protein (NEG-TRACE) MG/DL Urine Glucose (UA) (NEG) MG/DL Urine Ketones (NEG) MG/DL Urine Blood (NEG) Urine Nitrite (NEG) Ur Leukocyte Esterase (NEG) Urine RBC (0) /HPF Urine WBC (0-4) /HPF Ur Squamous Epith Cells /LPF Urine Bacteria /LPF Urine Opiates Screen Not Detected (Not Detect) Urine Fentanyl Screen Not Detected (Not Detect) Ur Barbiturates Screen Not Detected (Not Detect) Ur Phencyclidine Scrn Not Detected (Not Detect) Ur Amphetamines Screen Not Detected (Not Detect) U Benzodiazepines Scrn Not Detected (Not Detect) Urine Cocaine Screen Not Detected (Not Detect) U Marijuana (THC) Screen POSITIVE H (Not Detect) COVID-19 (ALEXANDR) (Negative) COVID-19 Clin Com Influenza Type A (PCR) NEGATIVE (Negative) Influenza Type B (PCR) NEGATIVE (Negative) RSV RNA Qual (PCR) NEGATIVE (Negative) SARS-CoV-2 RNA (RT-PCR) NEGATIVE (Negative) ECG Data Attestation: I personally reviewed and interpreted this ECG as follows: ECG interpretation date: 08/20/21 ECG interpretation time: 17:09 Interpretation: Sinus rhythm with occasional PVCs, QRS is wide with duration 126 MS, heart rate 68 beats per minute, prolonged QTC of 487 MS, minimal ST depressions in v4-v6 with artifact present - no major change from prior Critical Care Time Critical Care Time Critical Care Time: Yes Total Critical Care Time: 35 Attestation: I have personally provided critical care time exclusive of time spent on separately billable procedures. Time includes review of lab data, radiology results, discussion with consultants, and monitoring for potential decompensation. Intervention performed as documented. Discharge Plan Discharge Clinical Impression: Weakness Fever Qualifiers: Fever type: unspecified Qualified Code(s): R50.9 - Fever, unspecified Patient Disposition: Admitted As Inpatient
[2021-08-20 11:16] VITALS: BP 140/68; PULSE 86; O2SAT 95
[2021-08-20 11:17] VITALS: BP 123/43; PULSE 73; RESP 22; TEMP 36.6; O2SAT 98; BMI 36.3
--- NOTE | 2021-08-20 11:18 | ECG_ITS ---
Test Reason : WEAKNESS Blood Pressure : / mmHG Vent. Rate : 068 BPM Atrial Rate : 000 BPM P-R Int : 000 ms QRS Dur : 126 ms QT Int : 458 ms P-R-T Axes : 000 055 121 degrees QTc Int : 487 ms Poor data quality Likely sinus rhythm Non-specific intra-ventricular conduction block Abnormal ECG When compared with ECG of 01-JAN-2021 13:02, Poor data quality in current ECG precludes serial comparison Referred By: Sarah Hansen Electronically Signed By:Iam Delgado
[2021-08-20 12:18] LABS: MANUAL DIFF FLAG NO
[2021-08-20 12:20] LABS: Basophils Percent Auto 0.2 % (0-2); PLT CLUMP 1; SCAN SMEAR FLAG 1
[2021-08-20 12:21] LABS: Imm Gran Abs Auto 0.15 X10*3/uL (0.00-0.03); Imm Gran Pct Auto 0.8 % (0.0-0.4)
[2021-08-20 12:26] LABS: INTERNATIONAL NORM RATIO 1.1 (0.9-1.1); Prothrombin Time 12.3 SEC (9.9-13.0)
[2021-08-20 12:28] LABS: Eosinophils Absolute Auto 0.1 X10*3/uL (0.0-0.4); Eosinophils Percent Auto 0.5 % (0-4); Hematocrit 46.6 % (42.0-52.0); Hemoglobin 15.6 g/dl (14.0-18.0); Lymphocytes Absolute Auto 2.5 X10*3/uL (1.2-4.9); Lymphocytes Percent Auto 12.9 % (20-40); Mean Corpuscular HGB Conc 33.5 g/dl (31.0-36.0); Mean Corpuscular Hemoglobin 30.6 pg (27.0-33.0); Mean Corpuscular Volume 91.4 fL (80.0-98.0); Mean Platelet Volume 10.2 fL (9.4-12.4); Monocytes Absolute Auto 0.8 X10*3/uL (0.1-1.2); Monocytes Percent Auto 4.4 % (2-11); Neutrophils Absolute Auto 15.5 x10*3/uL (2.0-8.3); Neutrophils Percent Auto 81.2 % (45-73); Red Cell Distribution Width 13.1 % (11.0-16.0)
[2021-08-20 12:29] LABS: White Blood Count 19.1 X10*3/uL (4.8-10.8)
[2021-08-20 12:40] LABS: Partial Thromboplastin Time 23.1 SEC (24.1-38.0)
[2021-08-20 12:44] LABS: B Type Natriuretic Peptide 420 pg/mL (<100); Troponin-I High Sensitivity 34.1 ng/L (<3.5-35.0)
[2021-08-20 12:47] LABS: Platelet Count 144 X10*3/uL (160-400)
[2021-08-20 13:00] LABS: COVID-19 Test Negative (Negative); IDNOW Serial# 08D9AD1C
[2021-08-20] MEDS: 0.9 % Sodium Chloride 1,000 ML 999 ML IVCONT (15:53)
[2021-08-20 16:03] LABS: Glucose, Whole Blood 169 mg/dL (60-115)
[2021-08-20] MEDS: cefTRIAXone sodium 1 GM in 0.9 % Sodium Chloride 50 ML IV (16:13)
[2021-08-20 16:28] LABS: Lactic Acid 1.9 mmol/L (0.5-2.0)
[2021-08-20 16:32] LABS: Alanine Aminotransferase 24 U/L (0-40); Albumin Level 3.6 g/dL (3.5-5.0); Alkaline Phosphatase 79 U/L (39-117); Anion Gap 17 (12-20); Aspartate Amino Transferase 24 U/L (5-37); Bilirubin Direct 0.4 mg/dL (0.0-0.5); Blood Urea Nitrogen 24 mg/dL (9-16); Calcium 8.8 mg/dL (8.4-10.2); Carbon Dioxide 27 mmol/L (22-29); Chloride 98 mmol/L (96-108); Creatinine Clr Calc Pharmacy 66.9; Estimated Glomerular Filt Rate 49; Glucose Random 177 mg/dL (60-115); Magnesium 2.1 mg/dL (1.6-2.6); Potassium 3.5 mmol/L (3.3-5.1); Sodium 138 mmol/L (135-145); Total Protein 6.2 g/dL (6.5-8.0)
[2021-08-20 16:49] LABS: Appearance Urine CLEAR; Color Urine YELLOW; Glucose Urine UA NEG (NEG); Leukocyte Esterase Urine NEG (NEG); Nitrite Urine NEG (NEG); Specific Gravity - Urine <= 1.005 (1.005-1.025); UACC Culture Trigger NO; Urine Blood TRACE (NEG); Urine Ketones NEG (NEG); Urine Protein NEG (NEG-TRACE)
[2021-08-20 16:53] LABS: TSH reflex Free T4 0.41 uIU/mL (0.32-4.0)
[2021-08-20 17:01] LABS: RBC Urine 0-2 /HPF (0); Squamous Epithelial Cell Urine TRACE /LPF; WBC Urine 0 /HPF (0-4)
[2021-08-20 17:05] LABS: Amphetamine Screen Urine Not Detected (Not Detect); Barbiturates, Urine Not Detected (Not Detect); Benzodiazepines Screen Urine Not Detected (Not Detect); Cannabinoid Screen Urine POSITIVE (Not Detect); Cocaine Screen Urine Not Detected (Not Detect); Fentanyl, urine Not Detected (Not Detect); Opiate Screen Urine Not Detected (Not Detect); Phencyclidine Screen Urine Not Detected (Not Detect)
[2021-08-20 17:19] VITALS: TEMP 39.3
[2021-08-20 17:20] VITALS: BP 132/52; PULSE 68; RESP 14; TEMP 39.3; O2SAT 94
[2021-08-20] MEDS: Acetaminophen 325 MG TABLET 975 MG PO (17:58)
[2021-08-20 18:13] LABS: Influenza A PCR NEGATIVE (Negative); Influenza B PCR NEGATIVE (Negative); Resp Syncy Virus RNA Qual PCR NEGATIVE (Negative); SARS COV2 PCR INHOUSE NEGATIVE (Negative)
[2021-08-20 19:17] VITALS: TEMP 39.1
--- NOTE | 2021-08-20 20:53 | PHA.MEDREC ---
Pharmacy Consult ? Medication Reconciliation Pharmacy has completed the medication reconciliation.
--- NOTE | 2021-08-20 21:34 | PM.IMHP ---
History of Present Illness Date of Service: 08/20/21 Chief Complaint: generalized weakness this is a 71-year-old male with past medical history of diabetes, ventricular tachyarrhythmia, status post pacemaker, who presents to the hospital with complaints of weakness. Patient on my exam was very somnolent but appropriate, wakes up to answer questions but easily falls back asleep. Cannot maintain wakefulness. He reports that he has been feeling weak for several days, denies any chest pain, no abdominal pain nausea or vomiting, no diarrhea constipation, no shortness of breath. Unable to obtain any further information as patient is very sleepyHe went with repeated encouragement. On arrival to the ED patient was found to have a temp of 102.7?, respiratory rate of 22, heart rate of 73, blood pressure 123/43, satting 98% on room air. While sleeping patient did drop his oxygen to 82%. Labs are significant for WBC count of 19, platelet count of 144, VBG showed pH of 7.5, no CO2 retention, BMP significant for BUN of 24, creatinine of 1.42 which is around his baseline, glucose of 169, UA negative for any in his of infection, chest CT shows no occult to explain the patient's leukocytosis. Head CT negative. Abdominal pelvic CT negative. UDS +ve for Marijuana only given the leukocytosis as well as the fever patient will be admitted for further management. Review of Systems Review of Systems: Yes all other systems are reviewed and are negative [facility] Medical History (Updated 08/21/21 @ 06:49 by Calin Petit MD) CHF (congestive heart failure) Diabetes Hypothyroidism Pacemaker Ventricular tachyarrhythmia Pertinent family history: unknown as pt not giving full hx Surgical History H/O carotid endarterectomy History of heart artery stent History of hip replacement Total knee replacement status Social History Unable to assess alcohol history related to: Unable to respond Patient Tobacco Use Status: Tobacco use Unknown Advance Directives: No Advance Directives Information Provided: Yes Meds Allergies Allergy/AdvReac Type Severity Reaction Status Date / Time No Known Allergies Allergy Unknown Verified 01/25/21 14:21 Active Medications: Current Medications Pharmacy Consult (Consult Rx Perform Med Rec) 1 each MISCELLANE ONCE PRN PRN Reason: Consult order Home Medications Medication Instructions Recorded Confirmed Last Taken Type atorvastatin 80 mg tablet 1 tab PO DAILY 08/20/21 08/20/21 08/19/21 History insulin glargine 100 unit/mL (3 34 unit SUBCUT BEDTIME 08/20/21 08/20/21 08/19/21 History mL) subcutaneous pen (Lantus Solostar U-100 Insulin) levothyroxine 150 mcg tablet 1 tab PO QAM 08/20/21 08/20/21 08/19/21 History metoprolol succinate 50 mg 1 tab PO DAILY 08/20/21 08/20/21 08/19/21 History tablet,extended release 24 hr mexiletine 200 mg capsule 1 cap PO Q8H 08/20/21 08/20/21 08/19/21 History pantoprazole 40 mg tablet,delayed 1 tab PO DAILY 08/20/21 08/20/21 08/19/21 History release propranolol 120 mg capsule,24 1 cap PO DAILY 08/20/21 08/20/21 08/19/21 History hr,extended release ranolazine 500 mg tablet,extended 1 tab PO BID 08/20/21 08/20/21 08/19/21 History release,12 hr sacubitril 24 mg-valsartan 26 mg 1 tab PO BID 08/20/21 08/20/21 08/19/21 History tablet (Entresto) torsemide 20 mg tablet 2 tab PO TID 08/20/21 08/20/21 08/19/21 History Physical Exam Vital Signs and Narrative: Vital Signs: Last Vital Signs Temp 102.3 F H 08/20/21 19:17 Pulse 68 08/20/21 17:20 Resp 14 08/20/21 17:20 BP 132/52 L 08/20/21 17:20 Pulse Ox 94 08/20/21 17:20 BMI result Body Mass Index 36.3 Const: Other: Patient very somnolent, wakes up and answers questions appropriately but cannot maintain wakefulness General: cooperative and no acute distress Orientation/consciousness: patient oriented x3 Eyes: General: appearance normal, both eyes and all related structures Pupils: Equal, round and reactive pupils present Resp: Effort & Inspection: normal respiratory effort Auscultation: clear to auscultation bilaterally Cardio: Rate: regular rate Rhythm: regular rhythm GI: Palpation (GI): Soft to palpation Auscultation: normal bowel sounds Skin: General skin exam: no rashes or lesions noted Neuro: General: patient oriented x3 Cranial nerves: Yes Equal, round and reactive pupils present Cognition (Neuro): normal cognition Extrem: General: Yes normal to inspection and Yes no pedal edema Results Labs CBC and Chem 7: 08/21/21 04:59 08/21/21 04:59 Labs: Laboratory Results - last 24 hr 08/20/21 08/20/21 08/20/21 12:13 12:13 12:13 MCV 91.4 MCH 30.6 MCHC 33.5 RDW 13.1 Plt Count 144 L MPV 10.2 Immature Gran % (Auto) 0.8 H Neut % (Auto) 81.2 H Lymph % (Auto) 12.9 L [place] % (Auto) 4.4 Eos % (Auto) 0.5 Baso % (Auto) 0.2 Lymph # (Auto) 2.5 [place] # (Auto) 0.8 Eos # (Auto) 0.1 Baso # (Auto) 0.0 Abs Immat Gran (auto) 0.15 H Absolute Neuts (auto) 15.5 H Absolute Nucleated RBC 0.000 Nucleated RBC % (auto) 0.0 PT INR APTT Anion Gap Estim Creat Clear Calc Estimated GFR POC Glucose Random Glucose Lactic Acid Calcium Magnesium Total Bilirubin Direct Bilirubin AST ALT Alkaline Phosphatase Total Creatine Kinase Troponin I High Sens 34.1 B-Natriuretic Peptide 420 H Total Protein Albumin TSH Urine Color Urine Appearance Urine pH Ur Specific [place] Urine Protein Urine Glucose (UA) Urine Ketones Urine Blood Urine Nitrite Ur Leukocyte Esterase Urine RBC Urine WBC Ur Squamous Epith Cells Urine Bacteria Urine Opiates Screen Urine Fentanyl Screen Ur Barbiturates Screen Ur Phencyclidine Scrn Ur Amphetamines Screen U Benzodiazepines Scrn Urine Cocaine Screen U Marijuana (THC) Screen COVID-19 (ALEXANDR) Negative COVID-19 Clin Com See Note Influenza Type A (PCR) Influenza Type B (PCR) RSV RNA Qual (PCR) SARS-CoV-2 RNA (RT-PCR) 08/20/21 08/20/21 08/20/21 12:13 15:18 15:58 MCV MCH MCHC RDW Plt Count MPV Immature Gran % (Auto) Neut % (Auto) Lymph % (Auto) [place] % (Auto) Eos % (Auto) Baso % (Auto) Lymph # (Auto) [place] # (Auto) Eos # (Auto) Baso # (Auto) Abs Immat Gran (auto) Absolute Neuts (auto) Absolute Nucleated RBC Nucleated RBC % (auto) PT 12.3 INR 1.1 APTT 23.1 L Anion Gap Estim Creat Clear Calc Estimated GFR POC Glucose 169 H Random Glucose Lactic Acid Calcium Magnesium Total Bilirubin Direct Bilirubin AST ALT Alkaline Phosphatase Total Creatine Kinase Troponin I High Sens B-Natriuretic Peptide Total Protein Albumin TSH Cancelled Urine Color Urine Appearance Urine pH Ur Specific [place] Urine Protein Urine Glucose (UA) Urine Ketones Urine Blood Urine Nitrite Ur Leukocyte Esterase Urine RBC Urine WBC Ur Squamous Epith Cells Urine Bacteria Urine Opiates Screen Urine Fentanyl Screen Ur Barbiturates Screen Ur Phencyclidine Scrn Ur Amphetamines Screen U Benzodiazepines Scrn Urine Cocaine Screen U Marijuana (THC) Screen COVID-19 (ALEXANDR) COVID-19 Clin Com Influenza Type A (PCR) Influenza Type B (PCR) RSV RNA Qual (PCR) SARS-CoV-2 RNA (RT-PCR) 08/20/21 08/20/21 08/20/21 16:09 16:09 16:41 MCV MCH MCHC RDW Plt Count MPV Immature Gran % (Auto) Neut % (Auto) Lymph % (Auto) [place] % (Auto) Eos % (Auto) Baso % (Auto) Lymph # (Auto) [place] # (Auto) Eos # (Auto) Baso # (Auto) Abs Immat Gran (auto) Absolute Neuts (auto) Absolute Nucleated RBC Nucleated RBC % (auto) PT INR APTT Anion Gap 17 Estim Creat Clear Calc 66.9 Estimated GFR 49 POC Glucose Random Glucose 177 H Lactic Acid 1.9 Calcium 8.8 Magnesium 2.1 Total Bilirubin 1.0 Direct Bilirubin 0.4 AST 24 ALT 24 Alkaline Phosphatase 79 D Total Creatine Kinase 214 H Troponin I High Sens B-Natriuretic Peptide Total Protein 6.2 L Albumin 3.6 TSH 0.41 Urine Color YELLOW Urine Appearance CLEAR Urine pH 6.0 Ur Specific [place] <= 1.005 Urine Protein NEG Urine Glucose (UA) NEG Urine Ketones NEG Urine Blood TRACE Urine Nitrite NEG Ur Leukocyte Esterase NEG Urine RBC 0-2 Urine WBC 0 Ur Squamous Epith Cells TRACE Urine Bacteria NONE Urine Opiates Screen Urine Fentanyl Screen Ur Barbiturates Screen Ur Phencyclidine Scrn Ur Amphetamines Screen U Benzodiazepines Scrn Urine Cocaine Screen U Marijuana (THC) Screen COVID-19 (ALEXANDR) COVID-19 Clin Com Influenza Type A (PCR) Influenza Type B (PCR) RSV RNA Qual (PCR) SARS-CoV-2 RNA (RT-PCR) 08/20/21 08/20/21 16:41 17:31 MCV MCH MCHC RDW Plt Count MPV Immature Gran % (Auto) Neut % (Auto) Lymph % (Auto) [place] % (Auto) Eos % (Auto) Baso % (Auto) Lymph # (Auto) [place] # (Auto) Eos # (Auto) Baso # (Auto) Abs Immat Gran (auto) Absolute Neuts (auto) Absolute Nucleated RBC Nucleated RBC % (auto) PT INR APTT Anion Gap Estim Creat Clear Calc Estimated GFR POC Glucose Random Glucose Lactic Acid Calcium Magnesium Total Bilirubin Direct Bilirubin AST ALT Alkaline Phosphatase Total Creatine Kinase Troponin I High Sens B-Natriuretic Peptide Total Protein Albumin TSH Urine Color Urine Appearance Urine pH Ur Specific [place] Urine Protein Urine Glucose (UA) Urine Ketones Urine Blood Urine Nitrite Ur Leukocyte Esterase Urine RBC Urine WBC Ur Squamous Epith Cells Urine Bacteria Urine Opiates Screen Not Detected Urine Fentanyl Screen Not Detected Ur Barbiturates Screen Not Detected Ur Phencyclidine Scrn Not Detected Ur Amphetamines Screen Not Detected U Benzodiazepines Scrn Not Detected Urine Cocaine Screen Not Detected U Marijuana (THC) Screen POSITIVE H COVID-19 (ALEXANDR) COVID-19 Clin Com Influenza Type A (PCR) NEGATIVE Influenza Type B (PCR) NEGATIVE RSV RNA Qual (PCR) NEGATIVE SARS-CoV-2 RNA (RT-PCR) NEGATIVE Imaging Radiologist's Impressions: Impressions Chest X-Ray 08/20/21 11:28 IMPRESSION: No convincing radiographic evidence of pneumonia at this time. No acute pulmonary process. Abdomen/Pelvis CT 08/20/21 18:06 IMPRESSION: An occult etiology for the patient's leukocytosis has not been found. Incidental findings including tiny pulmonary nodules, the largest 2 mm, probable renal vascular calcifications right kidney, severe atherosclerotic disease with vascular stenoses as described above and marked degenerative changes in the spine. Chest CT 08/20/21 18:06 IMPRESSION: An occult etiology for the patient's leukocytosis has not been found. Incidental findings including tiny pulmonary nodules, the largest 2 mm, probable renal vascular calcifications right kidney, severe atherosclerotic disease with vascular stenoses as described above and marked degenerative changes in the spine. Assessment and Plan (1) Sepsis: Status: Acute 71-year-old male with past medical history of diabetes hypothyroidism as well as CHF presents to the hospital with complaints of weakness found to have sepsis of unknown origin # sepsis - febrile, has leukocytosis, UA is negative, chest CT negative, no soft tissue infection - has prosthetic hip as well as knee but no evidence of erythema, no tenderness in these regions - blood cultures obtained at this time, will start on broad-spectrum IV antibiotics, we can discontinue if blood cultures negative # coronary artery disease - stable - will continue home medications # DM - continue home insulin - will add low-dose of Angst counseling - diabetic diet # CHF - not in exacerbation - will continue home medications DVT prophylaxis: Heparin subQ Quality Stroke Does the patient have a stroke diagnosis?: No VTE Prior VTE?: No VTE Risk Level:: Medical - moderate - high VTE Device Contraindication: Treatment Not Indicated VTE Drug Contraindication: N/A - Med Ordered
[2021-08-20 22:07] LABS: VBG Base Excess 3.4 mmol/L; VBG HCO3 25 mmol/L (22-26); VBG pCO2 32 mmHg; VBG pO2 65 mmHg
[2021-08-20 22:12] LABS: Venous Blood Gas Refer to POC result
[2021-08-20 22:26] LABS: Troponin-I High Sensitivity 61.4 ng/L (<3.5-35.0)
--- NOTE | 2021-08-20 22:43 | PC.NURSE ---
This RN called pharmacy to confirm correct dosage and volume of Vancomycin. Pharmacy stated that they were currently mixing the medication and would deliver it shortly.
[2021-08-20 23:27] VITALS: BP 123/43; PULSE 70; RESP 18; TEMP 36.8; O2SAT 82
[2021-08-20] MEDS: Heparin Sodium,Porcine 5,000 UNIT/ML VIAL 5000 UNIT SUBCUT (23:27)
--- NOTE | 2021-08-20 23:32 | PC.NURSE ---
PT found to be satting at 82% on RA while sleeping in bed. PT denies any SOB, also any hx of sleep apnea. PT placed on O2 at 2 L/min via NC. O2 sat increased to 95% with supplemental O2. PT did exhibit an episode of apnea, which dropped O2 to 85%, while this RN was in the room.
[2021-08-21] VITALS (7 sets, daily range): BP systolic 96–128; BP diastolic 35–59; PULSE 61–90; RESP 14–20; TEMP 36.7–37.1; O2SAT 91–99
[2021-08-21] MEDS: Piperacillin Sodium/Tazobactam 3.375 GM in 0.9 % Sodium Chloride 50 ML IV ×4 (02:53→22:01)
[2021-08-21 05:09] LABS: MANUAL DIFF FLAG NO
[2021-08-21 05:14] LABS: Lymphocytes Percent Auto 14.7 % (20-40); Mean Platelet Volume 9.7 fL (9.4-12.4); PLT CLUMP 1; Red Cell Distribution Width 13.2 % (11.0-16.0); SCAN SMEAR FLAG 1
[2021-08-21 05:16] LABS: Basophils Percent Auto 0.2 % (0-2); Hematocrit 41.9 % (42.0-52.0); Hemoglobin 13.9 g/dl (14.0-18.0); Imm Gran Abs Auto 0.04 X10*3/uL (0.00-0.03); Imm Gran Pct Auto 0.3 % (0.0-0.4); Lymphocytes Absolute Auto 2.2 X10*3/uL (1.2-4.9); Mean Corpuscular HGB Conc 33.2 g/dl (31.0-36.0); Mean Corpuscular Hemoglobin 30.7 pg (27.0-33.0); Mean Corpuscular Volume 92.5 fL (80.0-98.0); Monocytes Absolute Auto 0.7 X10*3/uL (0.1-1.2); Monocytes Percent Auto 4.9 % (2-11); Neutrophils Absolute Auto 12.2 x10*3/uL (2.0-8.3); Neutrophils Percent Auto 79.9 % (45-73); Red Blood Count 4.53 X10*6/uL (4.60-5.80)
[2021-08-21 05:25] LABS: Platelet Count 134 X10*3/uL (160-400); White Blood Count 15.2 X10*3/uL (4.8-10.8)
[2021-08-21 05:36] LABS: Anion Gap 12 (12-20); Blood Urea Nitrogen 20 mg/dL (9-16); Calcium 9.2 mg/dL (8.4-10.2); Carbon Dioxide 31 mmol/L (22-29); Chloride 101 mmol/L (96-108); Creatinine Clr Calc Pharmacy 78.6; Estimated Glomerular Filt Rate 59; Glucose Random 147 mg/dL (60-115); Potassium 3.5 mmol/L (3.3-5.1); Sodium 140 mmol/L (135-145)
--- NOTE | 2021-08-21 05:37 | PC.NURSE ---
pt has positive blood cultures reported to [facility].
[2021-08-21] MEDS: Levothyroxine Sodium 150 MCG TABLET PO (06:56)
[2021-08-21] MEDS: Omeprazole 20 MG CAPSULE.DR PO (06:56)
[2021-08-21 07:49] LABS: Glucose, Whole Blood 127 mg/dL (60-115)
--- NOTE | 2021-08-21 08:16 | P.PNIM_ITS ---
Subjective Subjective Date of Service: 08/21/21 Interval History: SIRS /bacteremia Physical Exam Vital Signs: Vital Signs: Last Vital Signs Temp 98.3 F 08/21/21 08:08 Pulse 63 08/21/21 08:08 Resp 15 08/21/21 08:08 BP 96/59 L 08/21/21 08:08 Pulse Ox 91 L 08/21/21 08:08 BMI result Body Mass Index 36.3 Objective Data Active Medications Acetaminophen (Acetaminophen 325 Mg Tablet) 650 mg PO Q6H PRN PRN Reason: Pain, Mild (Pain Scale 1-3) Atorvastatin Calcium (Atorvastatin Calcium 80 Mg Tablet) 80 mg PO DAILY [facility] Dextrose (Dextrose 50 % 25 Gm/50 Ml Syringe) 25 gm IVPUSH Q15M PRN; Protocol PRN Reason: per Hypoglycemia Standing Ord. Docusate Sodium (Docusate Sodium 100 Mg Capsule) 100 mg PO DAILY PRN PRN Reason: Constipation Glucose (Glucose Gel 15 Gm Gel..Gram.) 15 gm PO Q15M PRN; Protocol PRN Reason: per Hypoglycemia Standing Ord. Heparin Sodium (Porcine) (Heparin Sodium,Porcine 5,000 Unit/Ml Vial) 5,000 unit SUBCUT Q12H [facility] Last Admin: 08/20/21 23:27 Dose: 5,000 unit Documented by: ELIER Vancomycin HCl 1,000 mg/Vancomycin HCl 750 mg/ Sodium Chloride 535 mls @ 267.5 mls/hr IV Q24H [facility] Piperacillin Sod/Tazobactam (Sod 3.375 gm/ Sodium Chloride) 50 mls @ 100 mls/hr IV Q6H [facility] Insulin Glargine (Insulin Glargine,Hum.Rec.Anlog 100 Unit/Ml 10 Ml Vial) 34 unit SUBCUT BEDTIME [facility] Insulin Human Lispro (Insulin Lispro 100 Unit/Ml 3 Ml Vial) 0 unit SUBCUT QIDACHS [facility]; Protocol Last Admin: 08/21/21 07:46 Dose: Not Given Documented by: GEOVANNY Non-Admin Reason: No Insulin Coverage Levothyroxine Sodium (Levothyroxine Sodium 150 Mcg Tablet) 150 mcg PO DAILY@0600 [facility] Last Admin: 08/21/21 06:56 Dose: 150 mcg Documented by: ELIER Metoprolol Succinate (Metoprolol Succinate Er 50 Mg Tab.Er.24h) 50 mg PO DAILY [facility]; Protocol Non-Formulary Medication (Mexiletine) 1 cap PO Q8H [facility] Omeprazole (Omeprazole 20 Mg Capsule.Dr) 20 mg PO DAILY@0630 [facility] Last Admin: 08/21/21 06:56 Dose: 20 mg Documented by: ELIER Ondansetron HCl (Ondansetron Hcl 4 Mg/2 Ml Vial) 4 mg IVPUSH Q8H PRN PRN Reason: Nausea and Vomiting Pharmacy Consult (Consult Rx Perform Med Rec) 1 each MISCELLANE ONCE PRN PRN Reason: Consult order Pharmacy Consult (Consult Rx Vancomycin Dosing) 1 each MISCELLANE DAILY PRN PRN Reason: Consult order Propranolol HCl (Propranolol Hcl La 60 Mg Cap.Sa.24h) 120 mg PO DAILY [facility]; Protocol Ranolazine (Ranolazine 500 Mg Tab.Er.12h) 500 mg PO BID [facility] Sacubitril/Valsartan (Sacubitril/Valsartan 1 Tab Tablet) 1 tab PO BID [facility]; Protocol Torsemide (Torsemide 20 Mg Tablet) 40 mg PO TIDWM MARTHA; Protocol Labs CBC & Chem 7: 08/21/21 04:59 08/21/21 04:59 Labs: Laboratory Results - last 24 hr 08/20/21 08/20/21 08/20/21 12:13 12:13 12:13 MCV 91.4 MCH 30.6 MCHC 33.5 RDW 13.1 Plt Count 144 L MPV 10.2 Immature Gran % (Auto) 0.8 H Neut % (Auto) 81.2 H Lymph % (Auto) 12.9 L Chase % (Auto) 4.4 Eos % (Auto) 0.5 Baso % (Auto) 0.2 Lymph # (Auto) 2.5 Chase # (Auto) 0.8 Eos # (Auto) 0.1 Baso # (Auto) 0.0 Abs Immat Gran (auto) 0.15 H Absolute Neuts (auto) 15.5 H Absolute Nucleated RBC 0.000 Nucleated RBC % (auto) 0.0 PT INR APTT VBG pH VBG pCO2 VBG pO2 VBG HCO3 VBG O2 Saturation VBG Base Excess Anion Gap Estim Creat Clear Calc Estimated GFR POC Glucose Random Glucose Lactic Acid Calcium Magnesium Total Bilirubin Direct Bilirubin AST ALT Alkaline Phosphatase Total Creatine Kinase Troponin I High Sens 34.1 B-Natriuretic Peptide 420 H Total Protein Albumin TSH Urine Color Urine Appearance Urine pH Ur Specific [place] Urine Protein Urine Glucose (UA) Urine Ketones Urine Blood Urine Nitrite Ur Leukocyte Esterase Urine RBC Urine WBC Ur Squamous Epith Cells Urine Bacteria Urine Opiates Screen Urine Fentanyl Screen Ur Barbiturates Screen Ur Phencyclidine Scrn Ur Amphetamines Screen U Benzodiazepines Scrn Urine Cocaine Screen U Marijuana (THC) Screen COVID-19 (ALEXANDR) Negative COVID-19 Clin Com See Note Influenza Type A (PCR) Influenza Type B (PCR) RSV RNA Qual (PCR) SARS-CoV-2 RNA (RT-PCR) 08/20/21 08/20/21 08/20/21 12:13 15:18 15:58 MCV MCH MCHC RDW Plt Count MPV Immature Gran % (Auto) Neut % (Auto) Lymph % (Auto) Chase % (Auto) Eos % (Auto) Baso % (Auto) Lymph # (Auto) [place] # (Auto) Eos # (Auto) Baso # (Auto) Abs Immat Gran (auto) Absolute Neuts (auto) Absolute Nucleated RBC Nucleated RBC % (auto) PT 12.3 INR 1.1 APTT 23.1 L VBG pH VBG pCO2 VBG pO2 VBG HCO3 VBG O2 Saturation VBG Base Excess Anion Gap Estim Creat Clear Calc Estimated GFR POC Glucose 169 H Random Glucose Lactic Acid Calcium Magnesium Total Bilirubin Direct Bilirubin AST ALT Alkaline Phosphatase Total Creatine Kinase Troponin I High Sens B-Natriuretic Peptide Total Protein Albumin TSH Cancelled Urine Color Urine Appearance Urine pH Ur Specific [place] Urine Protein Urine Glucose (UA) Urine Ketones Urine Blood Urine Nitrite Ur Leukocyte Esterase Urine RBC Urine WBC Ur Squamous Epith Cells Urine Bacteria Urine Opiates Screen Urine Fentanyl Screen Ur Barbiturates Screen Ur Phencyclidine Scrn Ur Amphetamines Screen U Benzodiazepines Scrn Urine Cocaine Screen U Marijuana (THC) Screen COVID-19 (ALEXANDR) COVID-19 Clin Com Influenza Type A (PCR) Influenza Type B (PCR) RSV RNA Qual (PCR) SARS-CoV-2 RNA (RT-PCR) 08/20/21 08/20/21 08/20/21 16:09 16:09 16:41 MCV MCH MCHC RDW Plt Count MPV Immature Gran % (Auto) Neut % (Auto) Lymph % (Auto) [place] % (Auto) Eos % (Auto) Baso % (Auto) Lymph # (Auto) [place] # (Auto) Eos # (Auto) Baso # (Auto) Abs Immat Gran (auto) Absolute Neuts (auto) Absolute Nucleated RBC Nucleated RBC % (auto) PT INR APTT VBG pH VBG pCO2 VBG pO2 VBG HCO3 VBG O2 Saturation VBG Base Excess Anion Gap 17 Estim Creat Clear Calc 66.9 Estimated GFR 49 POC Glucose Random Glucose 177 H Lactic Acid 1.9 Calcium 8.8 Magnesium 2.1 Total Bilirubin 1.0 Direct Bilirubin 0.4 AST 24 ALT 24 Alkaline Phosphatase 79 D Total Creatine Kinase 214 H Troponin I High Sens B-Natriuretic Peptide Total Protein 6.2 L Albumin 3.6 TSH 0.41 Urine Color YELLOW Urine Appearance CLEAR Urine pH 6.0 Ur Specific [place] <= 1.005 Urine Protein NEG Urine Glucose (UA) NEG Urine Ketones NEG Urine Blood TRACE Urine Nitrite NEG Ur Leukocyte Esterase NEG Urine RBC 0-2 Urine WBC 0 Ur Squamous Epith Cells TRACE Urine Bacteria NONE Urine Opiates Screen Urine Fentanyl Screen Ur Barbiturates Screen Ur Phencyclidine Scrn Ur Amphetamines Screen U Benzodiazepines Scrn Urine Cocaine Screen U Marijuana (THC) Screen COVID-19 (ALEXANDR) COVID-19 Clin Com Influenza Type A (PCR) Influenza Type B (PCR) RSV RNA Qual (PCR) SARS-CoV-2 RNA (RT-PCR) 08/20/21 08/20/21 08/20/21 16:41 17:31 21:59 MCV MCH MCHC RDW Plt Count MPV Immature Gran % (Auto) Neut % (Auto) Lymph % (Auto) [place] % (Auto) Eos % (Auto) Baso % (Auto) Lymph # (Auto) [place] # (Auto) Eos # (Auto) Baso # (Auto) Abs Immat Gran (auto) Absolute Neuts (auto) Absolute Nucleated RBC Nucleated RBC % (auto) PT INR APTT VBG pH VBG pCO2 VBG pO2 VBG HCO3 VBG O2 Saturation VBG Base Excess Anion Gap Estim Creat Clear Calc Estimated GFR POC Glucose Random Glucose Lactic Acid Calcium Magnesium Total Bilirubin Direct Bilirubin AST ALT Alkaline Phosphatase Total Creatine Kinase Troponin I High Sens 61.4 H D B-Natriuretic Peptide Total Protein Albumin TSH Urine Color Urine Appearance Urine pH Ur Specific [place] Urine Protein Urine Glucose (UA) Urine Ketones Urine Blood Urine Nitrite Ur Leukocyte Esterase Urine RBC Urine WBC Ur Squamous Epith Cells Urine Bacteria Urine Opiates Screen Not Detected Urine Fentanyl Screen Not Detected Ur Barbiturates Screen Not Detected Ur Phencyclidine Scrn Not Detected Ur Amphetamines Screen Not Detected U Benzodiazepines Scrn Not Detected Urine Cocaine Screen Not Detected U Marijuana (THC) Screen POSITIVE H COVID-19 (ALEXANDR) COVID-19 Clin Com Influenza Type A (PCR) NEGATIVE Influenza Type B (PCR) NEGATIVE RSV RNA Qual (PCR) NEGATIVE SARS-CoV-2 RNA (RT-PCR) NEGATIVE 08/20/21 08/21/21 08/21/21 22:01 04:59 04:59 MCV 92.5 MCH 30.7 MCHC 33.2 RDW 13.2 Plt Count 134 L MPV 9.7 Immature Gran % (Auto) 0.3 Neut % (Auto) 79.9 H Lymph % (Auto) 14.7 L [place] % (Auto) 4.9 Eos % (Auto) 0.0 Baso % (Auto) 0.2 Lymph # (Auto) 2.2 Chase # (Auto) 0.7 Eos # (Auto) 0.0 Baso # (Auto) 0.0 Abs Immat Gran (auto) 0.04 H Absolute Neuts (auto) 12.2 H Absolute Nucleated RBC 0.000 Nucleated RBC % (auto) 0.0 PT INR APTT VBG pH 7.50 H VBG pCO2 32 VBG pO2 65 VBG HCO3 25 VBG O2 Saturation 91.0 VBG Base Excess 3.4 Anion Gap 12 Estim Creat Clear Calc 78.6 Estimated GFR 59 POC Glucose Random Glucose 147 H Lactic Acid Calcium 9.2 Magnesium Total Bilirubin Direct Bilirubin AST ALT Alkaline Phosphatase Total Creatine Kinase Troponin I High Sens B-Natriuretic Peptide Total Protein Albumin TSH Urine Color Urine Appearance Urine pH Ur Specific [place] Urine Protein Urine Glucose (UA) Urine Ketones Urine Blood Urine Nitrite Ur Leukocyte Esterase Urine RBC Urine WBC Ur Squamous Epith Cells Urine Bacteria Urine Opiates Screen Urine Fentanyl Screen Ur Barbiturates Screen Ur Phencyclidine Scrn Ur Amphetamines Screen U Benzodiazepines Scrn Urine Cocaine Screen U Marijuana (THC) Screen COVID-19 (ALEXANDR) COVID-19 Clin Com Influenza Type A (PCR) Influenza Type B (PCR) RSV RNA Qual (PCR) SARS-CoV-2 RNA (RT-PCR) 08/21/21 07:43 MCV MCH MCHC RDW Plt Count MPV Immature Gran % (Auto) Neut % (Auto) Lymph % (Auto) [place] % (Auto) Eos % (Auto) Baso % (Auto) Lymph # (Auto) [place] # (Auto) Eos # (Auto) Baso # (Auto) Abs Immat Gran (auto) Absolute Neuts (auto) Absolute Nucleated RBC Nucleated RBC % (auto) PT INR APTT VBG pH VBG pCO2 VBG pO2 VBG HCO3 VBG O2 Saturation VBG Base Excess Anion Gap Estim Creat Clear Calc Estimated GFR POC Glucose 127 H Random Glucose Lactic Acid Calcium Magnesium Total Bilirubin Direct Bilirubin AST ALT Alkaline Phosphatase Total Creatine Kinase Troponin I High Sens B-Natriuretic Peptide Total Protein Albumin TSH Urine Color Urine Appearance Urine pH Ur Specific [place] Urine Protein Urine Glucose (UA) Urine Ketones Urine Blood Urine Nitrite Ur Leukocyte Esterase Urine RBC Urine WBC Ur Squamous Epith Cells Urine Bacteria Urine Opiates Screen Urine Fentanyl Screen Ur Barbiturates Screen Ur Phencyclidine Scrn Ur Amphetamines Screen U Benzodiazepines Scrn Urine Cocaine Screen U Marijuana (THC) Screen COVID-19 (ALEXANDR) COVID-19 Clin Com Influenza Type A (PCR) Influenza Type B (PCR) RSV RNA Qual (PCR) SARS-CoV-2 RNA (RT-PCR) Microbiology Microbiology Results: Microbiology 08/20/21 16:09 Blood Culture - Preliminary Blood - Venous Prelim: GPC Gram Stain only 08/20/21 16:10 Blood Culture - Preliminary Blood - Venous Prelim: GPC Gram Stain only Quality Stroke Does the patient have a stroke diagnosis?: No VTE Prior VTE?: No VTE Risk Level:: Medical - moderate - high VTE Device Contraindication: Treatment Not Indicated VTE Drug Contraindication: N/A - Med Ordered
[2021-08-21 08:19] LABS: C Reactive Protein 22.11 mg/dL (< or = 0.50)
[2021-08-21 08:45] LABS: HBS Num1 3.01 mIU/mL (0-7.99); HIV AB/AG Nonreactive (Nonreactive); HIV Num 1 0.07 S/CO (0.00-0.99); ~HepC Num1 0.14 S/CO (0.00-0.79); ~Hepatitis B Surface Antibody NONREACTIVE (Nonreactive); ~Hepatitis C Antibody Nonreactive (Nonreactive)
[2021-08-21 08:48] LABS: Erythrocyte Sedimentation Rate 27 MM/HR (0-15)
[2021-08-21] MEDS: Heparin Sodium,Porcine 5,000 UNIT/ML VIAL 5000 UNIT SUBCUT ×2 (08:55→22:00)
[2021-08-21] MEDS: Metoprolol Succinate ER 50 MG TAB.ER.24H PO (08:56)
[2021-08-21] MEDS: Atorvastatin Calcium 80 MG TABLET PO (08:56)
[2021-08-21] MEDS: Sacubitril/Valsartan 24/26 1 TAB TABLET PO ×2 (08:56→22:01)
[2021-08-21] MEDS: Torsemide 20 MG TABLET 40 MG PO (08:56)
[2021-08-21] MEDS: Ranolazine 500 MG TAB.ER.12H PO ×2 (08:56→22:01)
[2021-08-21] MEDS: Propranolol HCL LA 60 MG CAP.SA.24H 120 MG PO (08:56)
[2021-08-21] MEDS: Potassium Chloride Packet 20 MEQ PACKET 40 MEQ PO (09:32)
[2021-08-21 09:48] LABS: Alanine Aminotransferase 29 U/L (0-40); Albumin Level 3.5 g/dL (3.5-5.0); Alkaline Phosphatase 78 U/L (39-117); Aspartate Amino Transferase 32 U/L (5-37); Bilirubin Direct 0.5 mg/dL (0.0-0.5); Magnesium 2.2 mg/dL (1.6-2.6)
--- NOTE | 2021-08-21 10:46 | P.CDIC_ITS ---
CDI Concurrent Query Documentation Clarification: PHYSICIAN'S DOCUMENTATION REQUEST Date of Query: 08/21/21 1046 Patient Name: Michael Salinas Admit Date: 08/20/21 Dear Doctor, A review of the medical record indicates additional documentation may be needed. Please review below and update the documentation accordingly. Clinical Indicators: The following clinical information was noted in the record: Risk Factors/Clinical Indicators/Treatments BUN 24 Creatinine 1.42 Estimated GFR 49 Per ED 08/20/21: history CKD Please clarify which of the following accurately represents the patient's renal status: * Acute renal failure - see criteria * Acute renal failure with suspected ATN * Acute renal failure with other pathology (medullary, papillary, or cortical necrosis) * Acute renal failure (with type, appropriate) on Chronic Kidney Disease (CKD) - see criteria * Acute kidney injury (non-traumatic) - see criteria * CKD, please provide stage - see criteria * Other (please specify) * Unable to determine Criteria for LU* Stages of Chronic Kidney Disease* 1. Increase in serum creatinine by ? 0.3 mg/dL Level Description GFR (?26.5 micromol/L) within 48 hours, or G1 Normal or High > 90 2. Increase in serum creatinine to ?1.5 times baseline, G2 Mildly decreased 60 ? 89 which is known or presumed to have occurred within 7 days, or G3a Mildly to moderately decreased 45 ? 59 3. Urine volume <0.5 mL/kg/hour for six hours G3b Moderately to severely decreased 30 - 44 G4 Severely decreased 15 ? 29 G5 Kidney failure < 15 *Source: Kidney Disease: Improving Global Outcomes (KDIGO) 2012 Use of terms such as suspected, likely, concern for, or probable (associated with a specific diagnosis that is being evaluated, monitored, or treated as if it exists) are acceptable and can be coded in the inpatient setting, when documented at the time of discharge. Thank you, Zoey Branch RN Extension: [phone] Please use your independent medical judgment in providing your response. THIS QUERY IS PART OF THE PERMANENT MEDICAL RECORD Provider Response: Other Other Diagnosis: possible ckd 3
[2021-08-21 11:45] LABS: Glucose, Whole Blood 162 mg/dL (60-115)
[2021-08-21 12:35] LABS: Adenovirus PCR Not Detected (Not Detect.); Bordetella parapertussis PCR Not Detected (Not Detect.); Bordetella pertussis PCR Not Detected (Not Detect.); Chlamydia pneumoniae PCR Not Detected (Not Detect.); Coronavirus 229E PCR Not Detected (Not Detect.); Coronavirus HKU1 PCR Not Detected (Not Detect.); Coronavirus NL63 PCR Not Detected (Not Detect.); Coronavirus OC43 PCR Not Detected (Not Detect.); Human metapneumovirus PCR Not Detected (Not Detect.); Influenza A PCR Not Detected (Not Detect.); Influenza B PCR Not Detected (Not Detect.); Mycoplasma pneumoniae PCR Not Detected (Not Detect.); Parainfluenza 1 PCR Not Detected (Not Detect.); Parainfluenza 2 PCR Not Detected (Not Detect.); Parainfluenza 3 PCR Not Detected (Not Detect.); Parainfluenza 4 PCR Not Detected (Not Detect.); RSV PCR Not Detected (Not Detect.); Rhino/Enterovirus PCR Not Detected (Not Detect.); SARS-CoV-2 PCR Not Detected (Not Detect.)
[2021-08-21] MEDS: Insulin Lispro 100 UNIT/ML 3 ML VIAL SUBCUT ×2 (14:04→22:02)
--- NOTE | 2021-08-21 14:31 | MHC.CM.PN ---
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
--- NOTE | 2021-08-21 15:02 | P.PNIM_ITS ---
Subjective Subjective Date of Service: 08/21/21 Interval History: remains afebrile overnight. No complaints Review of Systems denies chest pain Denies shortness of breath Denies nausea vomiting diarrhea Physical Exam Vital Signs: Vital Signs: Last Vital Signs Temp 98.3 F 08/21/21 08:08 Pulse 64 08/21/21 08:59 Resp 14 08/21/21 08:59 BP 104/47 L 08/21/21 08:59 Pulse Ox 91 L 08/21/21 08:08 BMI result Body Mass Index 36.3 Const: Other: no acute distress Resp: Other: clear to auscultation bilaterally no rales rhonchi wheezes Cardio: Other: no S4; positive S1-S2; no S3 murmurs or gallops GI: Other: soft nontender nondistended wih normoactive bowel sounds Extrem: Other: no edema bilaterally Objective Data Active Medications Acetaminophen (Acetaminophen 325 Mg Tablet) 650 mg PO Q6H PRN PRN Reason: Pain, Mild (Pain Scale 1-3) Atorvastatin Calcium (Atorvastatin Calcium 80 Mg Tablet) 80 mg PO DAILY [facility] Last Admin: 08/21/21 08:56 Dose: 80 mg Documented by: GEOVANNY Dextrose (Dextrose 50 % 25 Gm/50 Ml Syringe) 25 gm IVPUSH Q15M PRN; Protocol PRN Reason: per Hypoglycemia Standing Ord. Docusate Sodium (Docusate Sodium 100 Mg Capsule) 100 mg PO DAILY PRN PRN Reason: Constipation Glucose (Glucose Gel 15 Gm Gel..Gram.) 15 gm PO Q15M PRN; Protocol PRN Reason: per Hypoglycemia Standing Ord. Heparin Sodium (Porcine) (Heparin Sodium,Porcine 5,000 Unit/Ml Vial) 5,000 unit SUBCUT Q12H [facility] Last Admin: 08/21/21 08:55 Dose: 5,000 unit Documented by: GEOVANNY Vancomycin HCl 1,000 mg/Vancomycin HCl 750 mg/ Sodium Chloride 535 mls @ 267.5 mls/hr IV Q24H [facility] Piperacillin Sod/Tazobactam (Sod 3.375 gm/ Sodium Chloride) 50 mls @ 100 mls/hr IV Q6H [facility] Last Admin: 08/21/21 14:04 Dose: 100 mls/hr Documented by: GEOVANNY Insulin Glargine (Insulin Glargine,Hum.Rec.Anlog 100 Unit/Ml 10 Ml Vial) 34 unit SUBCUT BEDTIME [facility] Insulin Human Lispro (Insulin Lispro 100 Unit/Ml 3 Ml Vial) 0 unit SUBCUT QIDACHS [facility]; Protocol Last Admin: 08/21/21 14:04 Dose: 2 unit Documented by: GEOVANNY Levothyroxine Sodium (Levothyroxine Sodium 150 Mcg Tablet) 150 mcg PO DAILY@0600 [facility] Last Admin: 08/21/21 06:56 Dose: 150 mcg Documented by: ELIER Metoprolol Succinate (Metoprolol Succinate Er 50 Mg Tab.Er.24h) 50 mg PO DAILY [facility]; Protocol Last Admin: 08/21/21 08:56 Dose: 50 mg Documented by: GEOVANNY Non-Formulary Medication (Mexiletine) 1 cap PO Q8H [facility] Omeprazole (Omeprazole 20 Mg Capsule.Dr) 20 mg PO DAILY@0630 [facility] Last Admin: 08/21/21 06:56 Dose: 20 mg Documented by: ELIER Ondansetron HCl (Ondansetron Hcl 4 Mg/2 Ml Vial) 4 mg IVPUSH Q8H PRN PRN Reason: Nausea and Vomiting Pharmacy Consult (Consult Rx Perform Med Rec) 1 each MISCELLANE ONCE PRN PRN Reason: Consult order Pharmacy Consult (Consult Rx Vancomycin Dosing) 1 each MISCELLANE DAILY PRN PRN Reason: Consult order Propranolol HCl (Propranolol Hcl La 60 Mg Cap.Sa.24h) 120 mg PO DAILY [facility]; Protocol Last Admin: 08/21/21 08:56 Dose: 120 mg Documented by: GEOVANNY Ranolazine (Ranolazine 500 Mg Tab.Er.12h) 500 mg PO BID [facility] Last Admin: 08/21/21 08:56 Dose: 500 mg Documented by: GEOVANNY Sacubitril/Valsartan (Sacubitril/Valsartan 1 Tab Tablet) 1 tab PO BID [facility]; Protocol Last Admin: 08/21/21 08:56 Dose: 1 tab Documented by: GEOVANNY Torsemide (Torsemide 20 Mg Tablet) 40 mg PO TIDWM [facility]; Protocol Last Admin: 08/21/21 08:56 Dose: 40 mg Documented by: GEOVANNY Labs CBC & Chem 7: 08/21/21 04:59 08/21/21 04:59 Labs: Laboratory Results - last 24 hr 08/20/21 08/20/21 08/20/21 15:18 15:58 16:09 MCV MCH MCHC RDW Plt Count MPV Immature Gran % (Auto) Neut % (Auto) Lymph % (Auto) [place] % (Auto) Eos % (Auto) Baso % (Auto) Lymph # (Auto) [place] # (Auto) Eos # (Auto) Baso # (Auto) Abs Immat Gran (auto) Absolute Neuts (auto) Absolute Nucleated RBC Nucleated RBC % (auto) ESR VBG pH VBG pCO2 VBG pO2 VBG HCO3 VBG O2 Saturation VBG Base Excess Anion Gap 17 Estim Creat Clear Calc 66.9 Estimated GFR 49 POC Glucose 169 H Random Glucose 177 H Lactic Acid Calcium 8.8 Magnesium 2.1 Total Bilirubin 1.0 Direct Bilirubin 0.4 AST 24 ALT 24 Alkaline Phosphatase 79 D Total Creatine Kinase 214 H Troponin I High Sens C-Reactive Protein Total Protein 6.2 L Albumin 3.6 TSH Cancelled 0.41 Urine Color Urine Appearance Urine pH Ur Specific [place] Urine Protein Urine Glucose (UA) Urine Ketones Urine Blood Urine Nitrite Ur Leukocyte Esterase Urine RBC Urine WBC Ur Squamous Epith Cells Urine Bacteria Urine Opiates Screen Urine Fentanyl Screen Ur Barbiturates Screen Ur Phencyclidine Scrn Ur Amphetamines Screen U Benzodiazepines Scrn Urine Cocaine Screen U Marijuana (THC) Screen Respiratory Panel [place] Adenovirus (Rapid PCR) B.pert (TEM-PCR) B.parapertussis DNA PCR C. pneumoniae DNA (PCR) Coronavirus OC43 (PCR) Coronavirus HKU1 (PCR) Coronavirus 229E (PCR) Coronavirus NL63 (PCR) Hep Bs Antibody Hepatitis C Ab (EIA) HIV 1&2 Ab/P24 Ag 4thGn Human Metapneumovir PCR Influenza A (RT-PCR) Influenza Type A (PCR) Influenza B (RT-PCR) Influenza Type B (PCR) M. pneumoniae (PCR) Parainfluenza 1 (PCR) Parainfluenza 2 (PCR) Parainfluenza 3 (PCR) Parainfluenza 4 (PCR) RSV (PCR) RSV RNA Qual (PCR) Entero/Rhino (PCR) SARS-CoV-2 RNA (RT-PCR) 08/20/21 08/20/21 08/20/21 16:09 16:41 16:41 MCV MCH MCHC RDW Plt Count MPV Immature Gran % (Auto) Neut % (Auto) Lymph % (Auto) [place] % (Auto) Eos % (Auto) Baso % (Auto) Lymph # (Auto) [place] # (Auto) Eos # (Auto) Baso # (Auto) Abs Immat Gran (auto) Absolute Neuts (auto) Absolute Nucleated RBC Nucleated RBC % (auto) ESR VBG pH VBG pCO2 VBG pO2 VBG HCO3 VBG O2 Saturation VBG Base Excess Anion Gap Estim Creat Clear Calc Estimated GFR POC Glucose Random Glucose Lactic Acid 1.9 Calcium Magnesium Total Bilirubin Direct Bilirubin AST ALT Alkaline Phosphatase Total Creatine Kinase Troponin I High Sens C-Reactive Protein Total Protein Albumin TSH Urine Color YELLOW Urine Appearance CLEAR Urine pH 6.0 Ur Specific [place] <= 1.005 Urine Protein NEG Urine Glucose (UA) NEG Urine Ketones NEG Urine Blood TRACE Urine Nitrite NEG Ur Leukocyte Esterase NEG Urine RBC 0-2 Urine WBC 0 Ur Squamous Epith Cells TRACE Urine Bacteria NONE Urine Opiates Screen Not Detected Urine Fentanyl Screen Not Detected Ur Barbiturates Screen Not Detected Ur Phencyclidine Scrn Not Detected Ur Amphetamines Screen Not Detected U Benzodiazepines Scrn Not Detected Urine Cocaine Screen Not Detected U Marijuana (THC) Screen POSITIVE H Respiratory Panel [place] Adenovirus (Rapid PCR) B.pert (TEM-PCR) B.parapertussis DNA PCR C. pneumoniae DNA (PCR) Coronavirus OC43 (PCR) Coronavirus HKU1 (PCR) Coronavirus 229E (PCR) Coronavirus NL63 (PCR) Hep Bs Antibody Hepatitis C Ab (EIA) HIV 1&2 Ab/P24 Ag 4thGn Human Metapneumovir PCR Influenza A (RT-PCR) Influenza Type A (PCR) Influenza B (RT-PCR) Influenza Type B (PCR) M. pneumoniae (PCR) Parainfluenza 1 (PCR) Parainfluenza 2 (PCR) Parainfluenza 3 (PCR) Parainfluenza 4 (PCR) RSV (PCR) RSV RNA Qual (PCR) Entero/Rhino (PCR) SARS-CoV-2 RNA (RT-PCR) 08/20/21 08/20/21 08/20/21 17:31 21:59 22:01 MCV MCH MCHC RDW Plt Count MPV Immature Gran % (Auto) Neut % (Auto) Lymph % (Auto) [place] % (Auto) Eos % (Auto) Baso % (Auto) Lymph # (Auto) [place] # (Auto) Eos # (Auto) Baso # (Auto) Abs Immat Gran (auto) Absolute Neuts (auto) Absolute Nucleated RBC Nucleated RBC % (auto) ESR VBG pH 7.50 H VBG pCO2 32 VBG pO2 65 VBG HCO3 25 VBG O2 Saturation 91.0 VBG Base Excess 3.4 Anion Gap Estim Creat Clear Calc Estimated GFR POC Glucose Random Glucose Lactic Acid Calcium Magnesium Total Bilirubin Direct Bilirubin AST ALT Alkaline Phosphatase Total Creatine Kinase Troponin I High Sens 61.4 H D C-Reactive Protein Total Protein Albumin TSH Urine Color Urine Appearance Urine pH Ur Specific [place] Urine Protein Urine Glucose (UA) Urine Ketones Urine Blood Urine Nitrite Ur Leukocyte Esterase Urine RBC Urine WBC Ur Squamous Epith Cells Urine Bacteria Urine Opiates Screen Urine Fentanyl Screen Ur Barbiturates Screen Ur Phencyclidine Scrn Ur Amphetamines Screen U Benzodiazepines Scrn Urine Cocaine Screen U Marijuana (THC) Screen Respiratory Panel [place] Adenovirus (Rapid PCR) B.pert (TEM-PCR) B.parapertussis DNA PCR C. pneumoniae DNA (PCR) Coronavirus OC43 (PCR) Coronavirus HKU1 (PCR) Coronavirus 229E (PCR) Coronavirus NL63 (PCR) Hep Bs Antibody Hepatitis C Ab (EIA) HIV 1&2 Ab/P24 Ag 4thGn Human Metapneumovir PCR Influenza A (RT-PCR) Influenza Type A (PCR) NEGATIVE Influenza B (RT-PCR) Influenza Type B (PCR) NEGATIVE M. pneumoniae (PCR) Parainfluenza 1 (PCR) Parainfluenza 2 (PCR) Parainfluenza 3 (PCR) Parainfluenza 4 (PCR) RSV (PCR) RSV RNA Qual (PCR) NEGATIVE Entero/Rhino (PCR) SARS-CoV-2 RNA (RT-PCR) NEGATIVE 08/21/21 08/21/21 08/21/21 04:59 04:59 04:59 MCV 92.5 MCH 30.7 MCHC 33.2 RDW 13.2 Plt Count 134 L MPV 9.7 Immature Gran % (Auto) 0.3 Neut % (Auto) 79.9 H Lymph % (Auto) 14.7 L [place] % (Auto) 4.9 Eos % (Auto) 0.0 Baso % (Auto) 0.2 Lymph # (Auto) 2.2 [place] # (Auto) 0.7 Eos # (Auto) 0.0 Baso # (Auto) 0.0 Abs Immat Gran (auto) 0.04 H Absolute Neuts (auto) 12.2 H Absolute Nucleated RBC 0.000 Nucleated RBC % (auto) 0.0 ESR 27 H VBG pH VBG pCO2 VBG pO2 VBG HCO3 VBG O2 Saturation VBG Base Excess Anion Gap 12 Estim Creat Clear Calc 78.6 Estimated GFR 59 POC Glucose Random Glucose 147 H Lactic Acid Calcium 9.2 Magnesium 2.2 Total Bilirubin 1.0 Direct Bilirubin 0.5 AST 32 ALT 29 Alkaline Phosphatase 78 Total Creatine Kinase Troponin I High Sens C-Reactive Protein 22.11 H Total Protein 6.0 L Albumin 3.5 TSH Urine Color Urine Appearance Urine pH Ur Specific [place] Urine Protein Urine Glucose (UA) Urine Ketones Urine Blood Urine Nitrite Ur Leukocyte Esterase Urine RBC Urine WBC Ur Squamous Epith Cells Urine Bacteria Urine Opiates Screen Urine Fentanyl Screen Ur Barbiturates Screen Ur Phencyclidine Scrn Ur Amphetamines Screen U Benzodiazepines Scrn Urine Cocaine Screen U Marijuana (THC) Screen Respiratory Panel [place] Adenovirus (Rapid PCR) B.pert (TEM-PCR) B.parapertussis DNA PCR C. pneumoniae DNA (PCR) Coronavirus OC43 (PCR) Coronavirus HKU1 (PCR) Coronavirus 229E (PCR) Coronavirus NL63 (PCR) Hep Bs Antibody Hepatitis C Ab (EIA) HIV 1&2 Ab/P24 Ag 4thGn Human Metapneumovir PCR Influenza A (RT-PCR) Influenza Type A (PCR) Influenza B (RT-PCR) Influenza Type B (PCR) M. pneumoniae (PCR) Parainfluenza 1 (PCR) Parainfluenza 2 (PCR) Parainfluenza 3 (PCR) Parainfluenza 4 (PCR) RSV (PCR) RSV RNA Qual (PCR) Entero/Rhino (PCR) SARS-CoV-2 RNA (RT-PCR) 08/21/21 08/21/21 08/21/21 04:59 07:43 09:33 MCV MCH MCHC RDW Plt Count MPV Immature Gran % (Auto) Neut % (Auto) Lymph % (Auto) [place] % (Auto) Eos % (Auto) Baso % (Auto) Lymph # (Auto) [place] # (Auto) Eos # (Auto) Baso # (Auto) Abs Immat Gran (auto) Absolute Neuts (auto) Absolute Nucleated RBC Nucleated RBC % (auto) ESR VBG pH VBG pCO2 VBG pO2 VBG HCO3 VBG O2 Saturation VBG Base Excess Anion Gap Estim Creat Clear Calc Estimated GFR POC Glucose 127 H Random Glucose Lactic Acid Calcium Magnesium Total Bilirubin Direct Bilirubin AST ALT Alkaline Phosphatase Total Creatine Kinase Troponin I High Sens C-Reactive Protein Total Protein Albumin TSH Urine Color Urine Appearance Urine pH Ur Specific [place] Urine Protein Urine Glucose (UA) Urine Ketones Urine Blood Urine Nitrite Ur Leukocyte Esterase Urine RBC Urine WBC Ur Squamous Epith Cells Urine Bacteria Urine Opiates Screen Urine Fentanyl Screen Ur Barbiturates Screen Ur Phencyclidine Scrn Ur Amphetamines Screen U Benzodiazepines Scrn Urine Cocaine Screen U Marijuana (THC) Screen Respiratory Panel [place] See Note Adenovirus (Rapid PCR) Not Detected B.pert (TEM-PCR) Not Detected B.parapertussis DNA PCR Not Detected C. pneumoniae DNA (PCR) Not Detected Coronavirus OC43 (PCR) Not Detected Coronavirus HKU1 (PCR) Not Detected Coronavirus 229E (PCR) Not Detected Coronavirus NL63 (PCR) Not Detected Hep Bs Antibody NONREACTIVE Hepatitis C Ab (EIA) Nonreactive HIV 1&2 Ab/P24 Ag 4thGn Nonreactive Human Metapneumovir PCR Not Detected Influenza A (RT-PCR) Not Detected Influenza Type A (PCR) Influenza B (RT-PCR) Not Detected Influenza Type B (PCR) M. pneumoniae (PCR) Not Detected Parainfluenza 1 (PCR) Not Detected Parainfluenza 2 (PCR) Not Detected Parainfluenza 3 (PCR) Not Detected Parainfluenza 4 (PCR) Not Detected RSV (PCR) Not Detected RSV RNA Qual (PCR) Entero/Rhino (PCR) Not Detected SARS-CoV-2 RNA (RT-PCR) Not Detected 08/21/21 11:29 MCV MCH MCHC RDW Plt Count MPV Immature Gran % (Auto) Neut % (Auto) Lymph % (Auto) [place] % (Auto) Eos % (Auto) Baso % (Auto) Lymph # (Auto) [place] # (Auto) Eos # (Auto) Baso # (Auto) Abs Immat Gran (auto) Absolute Neuts (auto) Absolute Nucleated RBC Nucleated RBC % (auto) ESR VBG pH VBG pCO2 VBG pO2 VBG HCO3 VBG O2 Saturation VBG Base Excess Anion Gap Estim Creat Clear Calc Estimated GFR POC Glucose 162 H Random Glucose Lactic Acid Calcium Magnesium Total Bilirubin Direct Bilirubin AST ALT Alkaline Phosphatase Total Creatine Kinase Troponin I High Sens C-Reactive Protein Total Protein Albumin TSH Urine Color Urine Appearance Urine pH Ur Specific [place] Urine Protein Urine Glucose (UA) Urine Ketones Urine Blood Urine Nitrite Ur Leukocyte Esterase Urine RBC Urine WBC Ur Squamous Epith Cells Urine Bacteria Urine Opiates Screen Urine Fentanyl Screen Ur Barbiturates Screen Ur Phencyclidine Scrn Ur Amphetamines Screen U Benzodiazepines Scrn Urine Cocaine Screen U Marijuana (THC) Screen Respiratory Panel [place] Adenovirus (Rapid PCR) B.pert (TEM-PCR) B.parapertussis DNA PCR C. pneumoniae DNA (PCR) Coronavirus OC43 (PCR) Coronavirus HKU1 (PCR) Coronavirus 229E (PCR) Coronavirus NL63 (PCR) Hep Bs Antibody Hepatitis C Ab (EIA) HIV 1&2 Ab/P24 Ag 4thGn Human Metapneumovir PCR Influenza A (RT-PCR) Influenza Type A (PCR) Influenza B (RT-PCR) Influenza Type B (PCR) M. pneumoniae (PCR) Parainfluenza 1 (PCR) Parainfluenza 2 (PCR) Parainfluenza 3 (PCR) Parainfluenza 4 (PCR) RSV (PCR) RSV RNA Qual (PCR) Entero/Rhino (PCR) SARS-CoV-2 RNA (RT-PCR) Microbiology Microbiology Results: Microbiology 08/20/21 16:10 Blood Culture - Preliminary Blood - Venous Prelim: GPC Gram Stain only 08/20/21 16:09 Blood Culture - Preliminary Blood - Venous Prelim: GPC Gram Stain only Assessment and Plan (1) Weakness: Status: Acute (2) Fever: Status: Acute Assessment and Plan: 71-year-old male with past medical history of diabetes hypothyroidism as well as CHF presents to the hospital with? complaints of weakness found to have fever of unknown origin. CT abdomen chest failed to demonstrate and origin for this fever 1.FOU - add on ESR, CRP,/Hep studies/lyme/HIV - continue broad-spectrum antibiotics pending culture - ID consult 2.CAD -Continue BB/ASA/Statin/Entresto - asymptomatic 3 DMII - continue Lantus/will add sliding scale -asjust as indicated 4. GERD - continue PPI full code heparin Quality Stroke Does the patient have a stroke diagnosis?: No VTE Prior VTE?: No VTE Risk Level:: Medical - moderate - high VTE Device Contraindication: Treatment Not Indicated VTE Drug Contraindication: N/A - Med Ordered
--- NOTE | 2021-08-21 16:21 | W.PM.IDCN ---
History of Present Illness Data of Consult Service Date: 08/21/21 Requesting physician: Gee Bahena Primary Care Provider: DIANA Coleman HPI Reason for consult: fever of unknown origin He presents with fever and hypoxia with temperature of 102.7 He has oxygen saturation in 80s He has no specific complaints COVID is negative Review of Systems Review of Systems: Yes all other systems are reviewed and are negative PMFSH Past Medical History Medical History CHF (congestive heart failure) Diabetes Hypothyroidism Pacemaker Ventricular tachyarrhythmia Family History Family history: reviewed and not pertinent Surgical History Surgical History H/O carotid endarterectomy History of heart artery stent History of hip replacement Total knee replacement status Social History Social History Unable to assess alcohol history related to: Unable to respond Patient Tobacco Use Status: Tobacco use Unknown Advance Directives: No Advance Directives Information Provided: Yes service: No Current occupational status: disabled Meds Allergies Allergy/AdvReac Type Severity Reaction Status Date / Time No Known Allergies Allergy Unknown Verified 01/25/21 14:21 Active Medications: Current Medications Acetaminophen (Acetaminophen 325 Mg Tablet) 650 mg PO Q6H PRN PRN Reason: Pain, Mild (Pain Scale 1-3) Atorvastatin Calcium (Atorvastatin Calcium 80 Mg Tablet) 80 mg PO DAILY [facility] Last Admin: 08/21/21 08:56 Dose: 80 mg Documented by: Dextrose (Dextrose 50 % 25 Gm/50 Ml Syringe) 25 gm IVPUSH Q15M PRN; Protocol PRN Reason: per Hypoglycemia Standing Ord. Docusate Sodium (Docusate Sodium 100 Mg Capsule) 100 mg PO DAILY PRN PRN Reason: Constipation Glucose (Glucose Gel 15 Gm Gel..Gram.) 15 gm PO Q15M PRN; Protocol PRN Reason: per Hypoglycemia Standing Ord. Heparin Sodium (Porcine) (Heparin Sodium,Porcine 5,000 Unit/Ml Vial) 5,000 unit SUBCUT Q12H [facility] Last Admin: 08/21/21 08:55 Dose: 5,000 unit Documented by: Vancomycin HCl 1,000 mg/Vancomycin HCl 750 mg/ Sodium Chloride 535 mls @ 267.5 mls/hr IV Q24H [facility] Piperacillin Sod/Tazobactam (Sod 3.375 gm/ Sodium Chloride) 50 mls @ 100 mls/hr IV Q6H [facility] Last Infusion: 08/21/21 16:16 Dose: Infused Documented by: Insulin Glargine (Insulin Glargine,Hum.Rec.Anlog 100 Unit/Ml 10 Ml Vial) 34 unit SUBCUT BEDTIME [facility] Insulin Human Lispro (Insulin Lispro 100 Unit/Ml 3 Ml Vial) 0 unit SUBCUT QIDACHS [facility]; Protocol Last Admin: 08/21/21 14:04 Dose: 2 unit Documented by: Levothyroxine Sodium (Levothyroxine Sodium 150 Mcg Tablet) 150 mcg PO DAILY@0600 [facility] Last Admin: 08/21/21 06:56 Dose: 150 mcg Documented by: Metoprolol Succinate (Metoprolol Succinate Er 50 Mg Tab.Er.24h) 50 mg PO DAILY [facility]; Protocol Last Admin: 08/21/21 08:56 Dose: 50 mg Documented by: Non-Formulary Medication (Mexiletine) 1 cap PO Q8H [facility] Omeprazole (Omeprazole 20 Mg Capsule.Dr) 20 mg PO DAILY@0630 [facility] Last Admin: 08/21/21 06:56 Dose: 20 mg Documented by: Ondansetron HCl (Ondansetron Hcl 4 Mg/2 Ml Vial) 4 mg IVPUSH Q8H PRN PRN Reason: Nausea and Vomiting Pharmacy Consult (Consult Rx Perform Med Rec) 1 each MISCELLANE ONCE PRN PRN Reason: Consult order Pharmacy Consult (Consult Rx Vancomycin Dosing) 1 each MISCELLANE DAILY PRN PRN Reason: Consult order Propranolol HCl (Propranolol Hcl La 60 Mg Cap.Sa.24h) 120 mg PO DAILY [facility]; Protocol Last Admin: 08/21/21 08:56 Dose: 120 mg Documented by: Ranolazine (Ranolazine 500 Mg Tab.Er.12h) 500 mg PO BID [facility] Last Admin: 08/21/21 08:56 Dose: 500 mg Documented by: Sacubitril/Valsartan (Sacubitril/Valsartan 1 Tab Tablet) 1 tab PO BID [facility]; Protocol Last Admin: 08/21/21 08:56 Dose: 1 tab Documented by: Torsemide (Torsemide 20 Mg Tablet) 40 mg PO TIDWM [facility]; Protocol Last Admin: 08/21/21 08:56 Dose: 40 mg Documented by: Home Medications Medication Instructions Recorded Confirmed Last Taken Type atorvastatin 80 mg tablet 1 tab PO DAILY 08/20/21 08/20/21 08/19/21 History insulin glargine 100 unit/mL (3 34 unit SUBCUT BEDTIME 08/20/21 08/20/21 08/19/21 History mL) subcutaneous pen (Lantus Solostar U-100 Insulin) levothyroxine 150 mcg tablet 1 tab PO QAM 08/20/21 08/20/21 08/19/21 History metoprolol succinate 50 mg 1 tab PO DAILY 08/20/21 08/20/21 08/19/21 History tablet,extended release 24 hr mexiletine 200 mg capsule 1 cap PO Q8H 08/20/21 08/20/21 08/19/21 History pantoprazole 40 mg tablet,delayed 1 tab PO DAILY 08/20/21 08/20/21 08/19/21 History release propranolol 120 mg capsule,24 1 cap PO DAILY 08/20/21 08/20/21 08/19/21 History hr,extended release ranolazine 500 mg tablet,extended 1 tab PO BID 08/20/21 08/20/21 08/19/21 History release,12 hr sacubitril 24 mg-valsartan 26 mg 1 tab PO BID 08/20/21 08/20/21 08/19/21 History tablet (Entresto) torsemide 20 mg tablet 2 tab PO TID 08/20/21 08/20/21 08/19/21 History Physical Exam Vital Signs: Vital Signs: Last Vital Signs Temp 98.3 F 08/21/21 08:08 Pulse 64 08/21/21 08:59 Resp 14 08/21/21 08:59 BP 104/47 L 08/21/21 08:59 Pulse Ox 91 L 08/21/21 08:08 BMI result Body Mass Index 36.3 Const: General: cooperative HENMT: Head: Yes normal to inspection Mouth: Normal oral and palatal mucosa present Resp: Effort & Inspection: normal respiratory effort Cardio: Other: 2/6 KAVIN Rate: regular rate Rhythm: regular rhythm GI: Palpation (GI): Soft to palpation and nontender Extrem: General: Yes normal to inspection Results Labs CBC & Chem 7: 08/21/21 04:59 08/21/21 04:59 Labs: Short CBC 08/21/21 Range/Units 04:59 WBC 15.2 H (4.8-10.8) X10*3/uL Hgb 13.9 L (14.0-18.0) g/dl Hct 41.9 L (42.0-52.0) % Plt Count 134 L (160-400) X10*3/uL BMP 08/20/21 08/21/21 16:09 04:59 Sodium 138 140 Potassium 3.5 3.5 Chloride 98 101 Carbon Dioxide 27 31 H BUN 24 H 20 H Creatinine 1.42 H 1.21 Calcium 8.8 9.2 Cardiac Enzymes 08/20/21 Range/Units 16:09 Total Creatine Kinase 214 H (38-174) U/L Liver Function 08/20/21 08/21/21 Range/Units 16:09 04:59 Total Bilirubin 1.0 1.0 (0.0-1.0) mg/dL Direct Bilirubin 0.4 0.5 (0.0-0.5) mg/dL AST 24 32 (5-37) U/L ALT 24 29 (0-40) U/L Alkaline Phosphatase 79 D 78 (39-117) U/L Albumin 3.6 3.5 (3.5-5.0) g/dL Urine 08/20/21 Range/Units 16:41 Urine Color YELLOW Urine Appearance CLEAR Urine pH 6.0 (5.0-8.0) Ur Specific [place] <= 1.005 (1.005-1.025) Urine Protein NEG (NEG-TRACE) MG/DL Urine Glucose (UA) NEG (NEG) MG/DL Microbiology Microbiology Results: Microbiology 08/20/21 16:10 Blood - Venous Blood Culture - Preliminary Prelim: GPC Gram Stain only 08/20/21 16:09 Blood - Venous Blood Culture - Preliminary Prelim: GPC Gram Stain only Assessment and Plan (1) Sepsis: Status: Acute (2) Weakness: Status: Acute (3) Fever: Qualifiers: Fever type: unspecified Qualified Code(s): R50.9 - Fever, unspecified Status: Acute He has occult causes of fever He has no VTE and doesnt appear to have COVID There is possible bacteremia with murmur and endocarditis is possibility Check echo Continue Vancomycin and Zosyn for now Recheck COVID testing
--- NOTE | 2021-08-21 16:28 | PC.NURSE ---
Pt transferred to ED overflow bed 9 at this time. Report given to Brandi KOCH. Pt aware and agreeable to plan.
[2021-08-21 16:57] LABS: Glucose, Whole Blood 173 mg/dL (60-115)
[2021-08-21] MEDS: Acetaminophen 325 MG TABLET 650 MG PO (18:16)
[2021-08-21 21:39] LABS: Glucose, Whole Blood 171 mg/dL (60-115)
[2021-08-21] MEDS: Insulin Glargine,Hum.rec.anlog 100 UNIT/ML 10 ML VIAL 34 UNIT SUBCUT (22:02)
[2021-08-21] MEDS: vancomycin HCL 1,000 MG, vancomycin HCL 750 MG in 0.9 % Sodium Chloride 500 ML 267.5 MG IV (23:59)
[2021-08-22] MEDS: Piperacillin Sodium/Tazobactam 3.375 GM in 0.9 % Sodium Chloride 50 ML IV ×4 (04:30→20:42)
[2021-08-22] MEDS: Levothyroxine Sodium 150 MCG TABLET PO (05:19)
[2021-08-22] MEDS: Lidocaine 4 % Patch ADH..PATCH 1 PATCH TRANSDERMA ×2 (05:59→08:52)
[2021-08-22 06:50] VITALS: BP 142/68; PULSE 94; RESP 20; TEMP 36.8; O2SAT 94
[2021-08-22] MEDS: Omeprazole 20 MG CAPSULE.DR PO (07:04)
[2021-08-22 07:06] LABS: Glucose, Whole Blood 135 mg/dL (60-115)
[2021-08-22 07:50] LABS: Creatinine Clr Calc Pharmacy 88.8; Estimated Glomerular Filt Rate > 60
[2021-08-22] MEDS: Metoprolol Succinate ER 50 MG TAB.ER.24H PO (08:53)
[2021-08-22] MEDS: Atorvastatin Calcium 80 MG TABLET PO (08:53)
[2021-08-22] MEDS: Ranolazine 500 MG TAB.ER.12H PO ×2 (08:53→20:44)
[2021-08-22] MEDS: Sacubitril/Valsartan 24/26 1 TAB TABLET PO ×2 (08:53→20:44)
[2021-08-22 09:59] LABS: Glucose, Whole Blood 128 mg/dL (60-115)
[2021-08-22] MEDS: Heparin Sodium,Porcine 5,000 UNIT/ML VIAL 5000 UNIT SUBCUT ×2 (11:18→23:11)
[2021-08-22 11:23] VITALS: BP 153/63; PULSE 64; RESP 16; O2SAT 94
[2021-08-22 12:00] VITALS: BP 150/50; O2SAT 93
[2021-08-22] MEDS: oxyCODONE HCl Immed Release 5 MG TABLET PO ×3 (12:11→23:37)
[2021-08-22] MEDS: Propranolol HCL LA 60 MG CAP.SA.24H 120 MG PO (12:11)
[2021-08-22] MEDS: Docusate Sodium 100 MG CAPSULE PO (12:12)
[2021-08-22] MEDS: Acetaminophen 325 MG TABLET 650 MG PO ×2 (12:12→19:37)
[2021-08-22 12:51] LABS: Lyme Abs Screen <0.90 index
[2021-08-22 13:42] LABS: Glucose, Whole Blood 166 mg/dL (60-115)
[2021-08-22] MEDS: Insulin Lispro 100 UNIT/ML 3 ML VIAL SUBCUT (13:52)
[2021-08-22] MEDS: Meclizine HCl 12.5 MG TABLET PO ×2 (13:53→20:44)
[2021-08-22 15:41] VITALS: BP 159/58; PULSE 71; RESP 18; TEMP 37.4; O2SAT 95
--- NOTE | 2021-08-22 15:42 | HO.PM.IMPN ---
Subjective Subjective Date of Service: 08/22/21 Interval History: Staph bacteremia Review of Systems patient denies any new complaint chest pain or shortness breath or abdominal pain or fever chills has some back pain on and off chronic as per the patient. Denies any bowel or urinary incontinence. Physical Exam Vital Signs: Vital Signs: Last Vital Signs Temp 99.3 F 08/22/21 15:41 Pulse 71 08/22/21 15:41 Resp 18 08/22/21 15:41 BP 159/58 H 08/22/21 15:41 Pulse Ox 95 08/22/21 15:41 BMI result Body Mass Index 36.3 physical exam: Appearance: Alert.? Oriented X3.? not in distress.? Eyes: Pupils equal, round and reactive to light.? Sclera nonicteric.? ENT: Pharynx normal.? Moist mucous membranes. cvs: rrr, [id number] , no murmur res: clear to auscultation ,no rhonchii or wheezing abd: no rebound or guarding ,nt, bs present. ext pulses present , no cyanosis back pain - no back Deformity or erythema or any spinal tenderness. neuro: axo3 , nonfocal. Objective Data Active Medications Acetaminophen (Acetaminophen 325 Mg Tablet) 650 mg PO Q6H PRN PRN Reason: Pain, Mild (Pain Scale 1-3) Last Admin: 08/22/21 12:12 Dose: 650 mg Documented by: CANDY Atorvastatin Calcium (Atorvastatin Calcium 80 Mg Tablet) 80 mg PO DAILY [facility] Last Admin: 08/22/21 08:53 Dose: 80 mg Documented by: MAURISIO Dextrose (Dextrose 50 % 25 Gm/50 Ml Syringe) 25 gm IVPUSH Q15M PRN; Protocol PRN Reason: per Hypoglycemia Standing Ord. Docusate Sodium (Docusate Sodium 100 Mg Capsule) 100 mg PO DAILY PRN PRN Reason: Constipation Last Admin: 08/22/21 12:12 Dose: 100 mg Documented by: CADNY Glucose (Glucose Gel 15 Gm Gel..Gram.) 15 gm PO Q15M PRN; Protocol PRN Reason: per Hypoglycemia Standing Ord. Heparin Sodium (Porcine) (Heparin Sodium,Porcine 5,000 Unit/Ml Vial) 5,000 unit SUBCUT Q12H [facility] Last Admin: 08/22/21 11:18 Dose: 5,000 unit Documented by: CANDY Vancomycin HCl 1,000 mg/Vancomycin HCl 750 mg/ Sodium Chloride 535 mls @ 267.5 mls/hr IV Q24H [facility] Last Infusion: 08/22/21 05:20 Dose: 0 mls/hr Documented by: JULIEN Piperacillin Sod/Tazobactam (Sod 3.375 gm/ Sodium Chloride) 50 mls @ 100 mls/hr IV Q6H [facility] Last Infusion: 08/22/21 14:57 Dose: 0 mls/hr Documented by: CANDY Insulin Glargine (Insulin Glargine,Hum.Rec.Anlog 100 Unit/Ml 10 Ml Vial) 34 unit SUBCUT BEDTIME [facility] Last Admin: 08/21/21 22:02 Dose: 34 unit Documented by: JULIEN Insulin Human Lispro (Insulin Lispro 100 Unit/Ml 3 Ml Vial) 0 unit SUBCUT QIDACHS [facility]; Protocol Last Admin: 08/22/21 13:52 Dose: 2 unit Documented by: CANDY Levothyroxine Sodium (Levothyroxine Sodium 150 Mcg Tablet) 150 mcg PO DAILY@0600 [facility] Last Admin: 08/22/21 05:19 Dose: 150 mcg Documented by: JULIEN Lidocaine (Lidocaine 4 % Patch Adh..Patch) 1 patch TRANSDERMA DAILY [facility]; Protocol Last Admin: 08/22/21 08:52 Dose: 1 patch Documented by: MAURISIO Meclizine HCl (Meclizine Hcl 12.5 Mg Tablet) 12.5 mg PO BID [facility] Last Admin: 08/22/21 13:53 Dose: 12.5 mg Documented by: CANDY Metoprolol Succinate (Metoprolol Succinate Er 50 Mg Tab.Er.24h) 50 mg PO DAILY [facility]; Protocol Last Admin: 08/22/21 08:53 Dose: 50 mg Documented by: MAURISIO Non-Formulary Medication (Mexiletine) 1 cap PO Q8H [facility] Omeprazole (Omeprazole 20 Mg Capsule.Dr) 20 mg PO DAILY@0630 [facility] Last Admin: 08/22/21 07:04 Dose: 20 mg Documented by: JULIEN Ondansetron HCl (Ondansetron Hcl 4 Mg/2 Ml Vial) 4 mg IVPUSH Q8H PRN PRN Reason: Nausea and Vomiting Oxycodone HCl (Oxycodone Hcl Immed Release 5 Mg Tablet) 5 mg PO Q4H PRN PRN Reason: Pain, Mild (Pain Scale 1-3) Last Admin: 08/22/21 12:11 Dose: 5 mg Documented by: CANDY Pharmacy Consult (Consult Rx Perform Med Rec) 1 each MISCELLANE ONCE PRN PRN Reason: Consult order Pharmacy Consult (Consult Rx Vancomycin Dosing) 1 each MISCELLANE DAILY PRN PRN Reason: Consult order Propranolol HCl (Propranolol Hcl La 60 Mg Cap.Sa.24h) 120 mg PO DAILY [facility]; Protocol Last Admin: 08/22/21 12:11 Dose: 120 mg Documented by: CANDY Ranolazine (Ranolazine 500 Mg Tab.Er.12h) 500 mg PO BID [facility] Last Admin: 08/22/21 08:53 Dose: 500 mg Documented by: MAURISIO Sacubitril/Valsartan (Sacubitril/Valsartan 1 Tab Tablet) 1 tab PO BID [facility]; Protocol Last Admin: 08/22/21 08:53 Dose: 1 tab Documented by: MAURISIO Torsemide (Torsemide 20 Mg Tablet) 40 mg PO TIDWM [facility]; Protocol Last Admin: 08/21/21 08:56 Dose: 40 mg Documented by: GEOVANNY Labs CBC & Chem 7: 08/21/21 04:59 08/22/21 07:06 Labs: Laboratory Results - last 24 hr 08/20/21 08/21/21 08/21/21 16:09 16:54 21:31 Estim Creat Clear Calc Estimated GFR POC Glucose 173 H 171 H Lyme Screen IgG & IgM <0.90 08/22/21 08/22/21 08/22/21 05:49 07:06 09:54 Estim Creat Clear Calc 88.8 Estimated GFR > 60 POC Glucose 135 H 128 H Lyme Screen IgG & IgM 08/22/21 13:39 Estim Creat Clear Calc Estimated GFR POC Glucose 166 H Lyme Screen IgG & IgM Microbiology Microbiology Results: Microbiology 08/20/21 16:10 Blood Culture - Preliminary Blood - Venous Staphylococcus aureus 08/20/21 16:09 Blood Culture - Preliminary Blood - Venous Staphylococcus aureus Assessment and Plan (1) Staph aureus infection: Status: Acute (2) Fever: Status: Acute Assessment and Plan: 71-year-old male with past medical history of diabetes hypothyroidism as well as CHF presents to the hospital with? complaints of weakness found to have fever of unknown origin. CT abdomen chest failed to demonstrate and origin for this fever 1.FOU/staph bacteremia ? -? add on? ESR, CRP,/Hep studies/lyme/HIV ? - continue broad-spectrum? antibiotics pending culture ? - ID consult 2.CAD ? -Continue BB/ASA/Statin/Entresto ? - asymptomatic 3 DMII ? - continue Lantus/will add sliding scale ? -asjust as indicated 4. GERD ? ? - continue PPI ?full code ?heparin Quality Stroke Does the patient have a stroke diagnosis?: No VTE Prior VTE?: No VTE Risk Level:: Medical - moderate - high VTE Device Contraindication: Treatment Not Indicated VTE Drug Contraindication: N/A - Med Ordered
[2021-08-22 16:15] LABS: Glucose, Whole Blood 148 mg/dL (60-115)
[2021-08-22 19:24] VITALS: BP 162/71; PULSE 62; RESP 18; TEMP 36.8; O2SAT 91
[2021-08-22 20:18] LABS: Glucose, Whole Blood 150 mg/dL (60-115)
[2021-08-22] MEDS: Insulin Glargine,Hum.rec.anlog 100 UNIT/ML 10 ML VIAL 34 UNIT SUBCUT (20:45)
[2021-08-22 23:04] VITALS: BP 122/59; PULSE 57; RESP 18; TEMP 36.7; O2SAT 93
[2021-08-22] MEDS: vancomycin HCL 1,000 MG, vancomycin HCL 750 MG in 0.9 % Sodium Chloride 500 ML 267.5 MG IV (23:12)
[2021-08-22] MEDS: bisacodyL 5 MG TABLET.DR 10 MG PO (23:48)
[2021-08-23] MEDS: Piperacillin Sodium/Tazobactam 3.375 GM in 0.9 % Sodium Chloride 50 ML IV ×4 (03:46→21:04)
[2021-08-23 03:48] VITALS: BP 141/64; PULSE 59; RESP 18; TEMP 36.7; O2SAT 91
[2021-08-23] MEDS: oxyCODONE HCl Immed Release 5 MG TABLET PO ×5 (03:50→19:27)
[2021-08-23 05:34] LABS: Anion Gap 12 (12-20); Blood Urea Nitrogen 15 mg/dL (9-16); Calcium 8.8 mg/dL (8.4-10.2); Carbon Dioxide 30 mmol/L (22-29); Chloride 101 mmol/L (96-108); Creatinine Clr Calc Pharmacy 101.1; Estimated Glomerular Filt Rate > 60; Glucose Random 93 mg/dL (60-115); Potassium 3.3 mmol/L (3.3-5.1); Sodium 140 mmol/L (135-145)
[2021-08-23] MEDS: Omeprazole 20 MG CAPSULE.DR PO (06:07)
[2021-08-23] MEDS: Levothyroxine Sodium 150 MCG TABLET PO (06:07)
[2021-08-23] MEDS: Acetaminophen 325 MG TABLET 650 MG PO ×2 (06:09→11:32)
[2021-08-23 07:19] VITALS: BP 128/68; PULSE 57; RESP 18; TEMP 36.6; O2SAT 93
[2021-08-23] MEDS: Metoprolol Succinate ER 50 MG TAB.ER.24H PO (07:19)
[2021-08-23] MEDS: Atorvastatin Calcium 80 MG TABLET PO (07:20)
[2021-08-23] MEDS: Meclizine HCl 12.5 MG TABLET PO ×2 (07:20→21:04)
[2021-08-23] MEDS: Lidocaine 4 % Patch ADH..PATCH 1 PATCH TRANSDERMA (07:20)
[2021-08-23 07:25] LABS: Glucose, Whole Blood 119 mg/dL (60-115)
--- NOTE | 2021-08-23 07:42 | P.PNIM_ITS ---
Subjective Subjective Date of Service: 08/24/21 Interval History: Staph bacteremia back pain Review of Systems still has back pain denies any chest pain or shortness of breath or abdominal pain or fever or any weakness or numbness Even with back pain came day able to stand and walk has still moderate lumbar spine area pain Physical Exam Vital Signs: Vital Signs: Last Vital Signs Temp 97.8 F 08/23/21 07:19 Pulse 57 08/23/21 07:19 Resp 18 08/23/21 07:19 BP 128/68 08/23/21 07:19 Pulse Ox 93 08/23/21 07:19 BMI result Body Mass Index 36.3 Appearance: Alert.? Oriented X3.? not in distress.? Eyes: Pupils equal, round and reactive to light.? Sclera nonicteric.? ENT: Pharynx normal.? Moist mucous membranes. cvs: rrr, [id number] , no murmur res: clear to auscultation ,no rhonchii or wheezing abd: no rebound or guarding ,nt, bs present. ext pulses present , no cyanosis back pain - no back ? Deformity or erythema or has paraspinal and L spine area pain also. no weakness or numbness, gait seems ok but has significant pain neuro: axo3 , nonfocal. Objective Data Active Medications Acetaminophen (Acetaminophen 325 Mg Tablet) 650 mg PO Q6H PRN PRN Reason: Pain, Mild (Pain Scale 1-3) Last Admin: 08/23/21 06:09 Dose: 650 mg Documented by: KALI Atorvastatin Calcium (Atorvastatin Calcium 80 Mg Tablet) 80 mg PO DAILY [facility] Last Admin: 08/23/21 07:20 Dose: 80 mg Documented by: CHRISTOPHER Bisacodyl (Bisacodyl 5 Mg Tablet.Dr) 10 mg PO BEDTIME PRN PRN Reason: Constipation Last Admin: 08/22/21 23:48 Dose: 10 mg Documented by: KALI Dextrose (Dextrose 50 % 25 Gm/50 Ml Syringe) 25 gm IVPUSH Q15M PRN; Protocol PRN Reason: per Hypoglycemia Standing Ord. Docusate Sodium (Docusate Sodium 100 Mg Capsule) 100 mg PO DAILY PRN PRN Reason: Constipation Last Admin: 08/22/21 12:12 Dose: 100 mg Documented by: HO.PELTIEJ Glucose (Glucose Gel 15 Gm Gel..Gram.) 15 gm PO Q15M PRN; Protocol PRN Reason: per Hypoglycemia Standing Ord. Heparin Sodium (Porcine) (Heparin Sodium,Porcine 5,000 Unit/Ml Vial) 5,000 unit SUBCUT Q12H [facility] Last Admin: 08/22/21 23:11 Dose: 5,000 unit Documented by: KALI Vancomycin HCl 1,000 mg/Vancomycin HCl 750 mg/ Sodium Chloride 535 mls @ 267.5 mls/hr IV Q24H [facility] Last Infusion: 08/23/21 01:44 Dose: 0 mls/hr Documented by: KALI Piperacillin Sod/Tazobactam (Sod 3.375 gm/ Sodium Chloride) 50 mls @ 100 mls/hr IV Q6H [facility] Last Infusion: 08/23/21 04:22 Dose: 0 mls/hr Documented by: KALI Insulin Glargine (Insulin Glargine,Hum.Rec.Anlog 100 Unit/Ml 10 Ml Vial) 34 unit SUBCUT BEDTIME [facility] Last Admin: 08/22/21 20:45 Dose: 34 unit Documented by: KALI Insulin Human Lispro (Insulin Lispro 100 Unit/Ml 3 Ml Vial) 0 unit SUBCUT QIDACHS [facility]; Protocol Last Admin: 08/23/21 07:19 Dose: Not Given Documented by: CHRISTOPHER Non-Admin Reason: No Insulin Coverage Levothyroxine Sodium (Levothyroxine Sodium 150 Mcg Tablet) 150 mcg PO DAILY@0600 [facility] Last Admin: 08/23/21 06:07 Dose: 150 mcg Documented by: KALI Lidocaine (Lidocaine 4 % Patch Adh..Patch) 1 patch TRANSDERMA DAILY [facility]; Protocol Last Admin: 08/23/21 07:20 Dose: 1 patch Documented by: CHRISTOPHER Meclizine HCl (Meclizine Hcl 12.5 Mg Tablet) 12.5 mg PO BID [facility] Last Admin: 08/23/21 07:20 Dose: 12.5 mg Documented by: CHRISTOPHER Metoprolol Succinate (Metoprolol Succinate Er 50 Mg Tab.Er.24h) 50 mg PO DAILY [facility]; Protocol Last Admin: 08/23/21 07:19 Dose: 50 mg Documented by: CHRISTOPHER Non-Formulary Medication (Mexiletine) 1 cap PO Q8H [facility] Omeprazole (Omeprazole 20 Mg Capsule.Dr) 20 mg PO DAILY@0630 [facility] Last Admin: 08/23/21 06:07 Dose: 20 mg Documented by: KALI Ondansetron HCl (Ondansetron Hcl 4 Mg/2 Ml Vial) 4 mg IVPUSH Q8H PRN PRN Reason: Nausea and Vomiting Oxycodone HCl (Oxycodone Hcl Immed Release 5 Mg Tablet) 5 mg PO Q4H PRN PRN Reason: Pain, Mild (Pain Scale 1-3) Last Admin: 08/23/21 07:19 Dose: 5 mg Documented by: CHRISTOPHER Pharmacy Consult (Consult Rx Perform Med Rec) 1 each MISCELLANE ONCE PRN PRN Reason: Consult order Pharmacy Consult (Consult Rx Vancomycin Dosing) 1 each MISCELLANE DAILY PRN PRN Reason: Consult order Pharmacy Consult (Consult Rx Vancomycin Dosing) 1 each MISCELLANE DAILY PRN PRN Reason: Consult order Propranolol HCl (Propranolol Hcl La 60 Mg Cap.Sa.24h) 120 mg PO DAILY [facility]; Protocol Last Admin: 08/22/21 12:11 Dose: 120 mg Documented by: CANDY Ranolazine (Ranolazine 500 Mg Tab.Er.12h) 500 mg PO BID [facility] Last Admin: 08/22/21 20:44 Dose: 500 mg Documented by: KALI Sacubitril/Valsartan (Sacubitril/Valsartan 1 Tab Tablet) 1 tab PO BID [facility]; Protocol Last Admin: 08/22/21 20:44 Dose: 1 tab Documented by: KALI Torsemide (Torsemide 20 Mg Tablet) 40 mg PO TIDWM [facility]; Protocol Last Admin: 08/21/21 08:56 Dose: 40 mg Documented by: GEOVANNY Labs CBC & Chem 7: 08/21/21 04:59 08/24/21 04:43 Labs: Laboratory Results - last 24 hr 08/20/21 08/22/21 08/22/21 16:09 07:06 09:54 Anion Gap Estim Creat Clear Calc 88.8 Estimated GFR > 60 POC Glucose 128 H Random Glucose Calcium Lyme Screen IgG & IgM <0.90 08/22/21 08/22/21 08/22/21 13:39 16:07 20:11 Anion Gap Estim Creat Clear Calc Estimated GFR POC Glucose 166 H 148 H 150 H Random Glucose Calcium Lyme Screen IgG & IgM 08/23/21 08/23/21 08/23/21 04:51 04:51 07:15 Anion Gap 12 Estim Creat Clear Calc Cancelled 101.1 Estimated GFR Cancelled > 60 POC Glucose 119 H Random Glucose 93 D Calcium 8.8 Lyme Screen IgG & IgM Microbiology Microbiology Results: Microbiology 08/20/21 16:10 Blood Culture - Final Blood - Venous Methicillin Res Staph Aureus 08/20/21 16:09 Blood Culture - Final Blood - Venous Methicillin Res Staph Aureus Assessment and Plan (1) Staph aureus infection: Status: Acute (2) Sepsis: Status: Acute Assessment and Plan: 71-year-old male with past medical history of diabetes hypothyroidism as well as CHF presents to the hospital with? complaints of weakness found to have fever of unknown origin. CT abdomen chest failed to demonstrate and origin for this fever 1.FOU/staph bacteremia ? -? add on? ESR, CRP,/Hep studies/lyme/HIV ? - continue broad-spectrum? antibiotics pending culture ? - ID eval noted 2.CAD ? -Continue BB/ASA/Statin/Entresto ? - asymptomatic 3 DMII ? - continue Lantus/will add sliding scale ? -asjust as indicated 4. GERD ? ? - continue PPI 5. back pain /in setting of mrsa bacteremia MRI can not be done today probably related to pacemaker-(dUE pacemaker information needed his DR Pallavi Suarez in [facility]) . will add CT scan lumbar spine. ID follow-up ?full code ?heparin Quality Stroke Does the patient have a stroke diagnosis?: No VTE Prior VTE?: No VTE Risk Level:: Medical - moderate - high VTE Device Contraindication: Treatment Not Indicated VTE Drug Contraindication: N/A - Med Ordered
--- NOTE | 2021-08-23 08:30 | CA_ITS ---
Transthoracic Echocardiogram Patient (Last, First, Middle): Michael Salinas, Gender: Male Date of : 1950 Age: 71 Procedure Date: 08/23/2021 Procedure Type: Transthoracic Echocardiogram Location: S3E Height: 185.42 cm Weight: 124.74 kg BSA: 2.46 m2 Heart Rate: bpm BP: 141 / 64 mmHg Dispatch Clerk: TEGAN Referring MD: Gee Bahena MD Symptoms: staph bacteremia Study Quality: Technically Difficult/Contrast Conclusions: - The left ventricular systolic function is moderately decreased. The visually estimated ejection fraction is between 30-35%. - The inferoseptal wall, the basal inferior, mid inferior, and apical septum segments are akinetic. - The basal inferolateral segment is dyskinetic. - Normal right ventricular cavity size and systolic function. - There is mild dilatation of the ascending aorta measuring 3.50 cm. Findings Procedure Information Contrast agent, definity, is being given per protocol without apparent complications. Left Ventricle Normal left ventricular cavity size. There is moderately increased left ventricular wall thickness. The left ventricular systolic function is moderately decreased. The visually estimated ejection fraction is between 30 35%. There is evidence of regional wall motion abnormalities. Diastolic function is indeterminate on the basis of available data. Wall Motion Rest Echo Findings The inferoseptal wall, the basal inferior, mid inferior, and apical septum segments are akinetic. The basal inferolateral segment is dyskinetic. Right Ventricle Normal right ventricular cavity size and systolic function. There is a pacemaker wire seen in the right ventricle. Atria The left atrium was not well visualized. Aortic Valve There is a normal trileaflet aortic valve. There is mild calcification of the aortic valve. There is no aortic valve stenosis. There is no aortic valve regurgitation. Mitral Valve The mitral valve appears normal. There is no mitral valve regurgitation. There is no mitral valve stenosis. Pulmonic Valve Normal pulmonic valve structure and function. Tricuspid Valve Normal tricuspid valve structure and function. There is trace tricuspid valve regurgitation. Mildly elevated right atrial pressure. There is no evidence of pulmonary hypertension. Great Vessels There is mild dilatation of the ascending aorta measuring 3.50 cm. The visualized portions of the pulmonary artery and branches are normal. Venous The inferior vena cava is dilated and collapses greater than 50% with inspiration. Pericardium/Pleural There is no evidence of pericardial effusion. Prior Study Comparison No prior study available for comparison. Measurements 2D Linear Measurements IVSd: 1.21 0.6-0.9/0.6-1.0 cm LVIDd: 6.06 3.9-5.3/4.2-5.9 cm LVIDd Index: 2.46 2.4-3.2/2.2-3.1 cm/m2 LVIDs: 4.80 2.0-3.6 cm LVPWd: 1.27 0.7-1.1 cm Ao Root: 3.40 2.1-3.5 cm LA Diam: 4.60 2.7-3.8/3.0-4.0 cm LAIDs Index: 1.87 1.5-2.3 cm/m2 LV Mass: 416.30 67-162/88-224 g LV Mass Index: 169.23 43-95/49-115 g/m2 LVOT Diam: 2.30 3.0+(-)1.3 cm 2D Systolic Function EF 4C: 54.30 >55% EF 2C: 41.50 >55% EF BiP: 47.00 >55% Mitral Valve MV Pk E: 0.89 MV PK A: 0.73 MV Decel Time: 200.00 E/A: 1.20 E'Lateral: 9.57 E'Medial: 8.92 E/E' Med: 9.90 E/E' Lat: 9.20 PHT: 58.00 MVA PHT: 3.79 Decel [place]: 4.44 Aortic Valve AoV Pk [place]: 1.09 AoV Mn [place]: 0.73 AoV VTI: 0.25 AoV Pk Grad: 5.00 Aov Mn Grad: 2.00 BRENDA Cont.VTI: 2.30 LVOT LVOT Pk [place]: 0.60 LVOT Mn [place]: 0.45 LVOT VTI: 0.14 LVOT Pk Grad: 1.00 LVOT Mn Grad: 1.00 LVOT Diam: 2.30 LVOT Area: 4.15 Diastolic Function MV Pk E: 0.89 MV Pk A: 0.73 E/A: 1.20 E'Medial: 8.92 E/E' Med: 9.90 E' Laterial: 9.57 E/E' Lat: 9.20 Right Ventricle TAPSE (mm): 2.62 TVS' Frederick: 17.20 Tricuspid Valve TR Pk [place]: 1.57 TR Pk Grad: 10.00 RA Press: 8.00 RVSP: 18.00 Great Vessels Aorta Ao Root-2D: 3.40 2.0-3.7 cm Ao Asc: 3.50 2.1-3.4 cm Updated in Other Vendor System with Status of Final Iam Delgado MD electronically signed on 08/23/2021 6:30:31 PM with status of Final
[2021-08-23] MEDS: Sacubitril/Valsartan 24/26 1 TAB TABLET PO ×2 (09:49→21:04)
[2021-08-23] MEDS: Ranolazine 500 MG TAB.ER.12H PO ×2 (09:49→21:04)
[2021-08-23] MEDS: Heparin Sodium,Porcine 5,000 UNIT/ML VIAL 5000 UNIT SUBCUT ×2 (09:50→21:11)
[2021-08-23] MEDS: Propranolol HCL LA 60 MG CAP.SA.24H 120 MG PO (09:50)
[2021-08-23 10:49] VITALS: BP 144/66; PULSE 60; RESP 20; TEMP 36.6; O2SAT 92
[2021-08-23 11:38] LABS: Glucose, Whole Blood 129 mg/dL (60-115)
[2021-08-23] MEDS: Cyclobenzaprine HCl 5 MG TABLET PO ×2 (12:27→21:04)
[2021-08-23] MEDS: HYDROmorphone HCl 0.5 MG/0.5 ML SYRINGE IVPUSH (12:27)
--- NOTE | 2021-08-23 13:06 | HE.PHANOTE ---
RE: MEXEILETINE Patient is on 200mg TID at home. If patient cannot have home med brought in, change to 150mg TID per Dr Delgado. Dr Bahena wants us to give our stock now and change order if pt brings in med. Thanks Boni
[2021-08-23 15:08] VITALS: BP 141/63; PULSE 54; RESP 16; TEMP 37.1; O2SAT 90
--- NOTE | 2021-08-23 15:34 | MHC.CM.PN ---
PATIENT REPORTS HAVING RECEIVED 2 PFIZER DOSES AND 1 MODERNA AGAINST COVID-19 HE IS UNABLE TO RECALL THE DATES AND DOES NOT HAVE HIS IMMUNIZATION CARD WITH HIM. IF ABLE TO RETRIEVE, CASE MANAGEMENT CAN UPLOAD INFO INTO [employer]
[2021-08-23 15:50] LABS: Glucose, Whole Blood 128 mg/dL (60-115)
[2021-08-23] MEDS: iohexoL 350 MG/ML 100 ML INFUS..BTL IV (17:31)
[2021-08-23] MEDS: HYDROmorphone HCl 1 MG/ML SYRINGE 0.5 MG IVPUSH (18:38)
[2021-08-23 19:28] VITALS: BP 143/70; PULSE 58; RESP 16; TEMP 37.4; O2SAT 90
[2021-08-23 20:13] LABS: Glucose, Whole Blood 148 mg/dL (60-115)
[2021-08-23] MEDS: Insulin Glargine,Hum.rec.anlog 100 UNIT/ML 10 ML VIAL 34 UNIT SUBCUT (21:06)
[2021-08-23 21:26] LABS: Vancomycin Trough 8.4 mcg/mL (10.0-20.0)
[2021-08-23] MEDS: vancomycin HCL 1,000 MG, vancomycin HCL 750 MG in 0.9 % Sodium Chloride 500 ML 267.5 MG IV (22:51)
[2021-08-23 23:19] VITALS: BP 105/54; PULSE 59; RESP 18; TEMP 37.2; O2SAT 90
[2021-08-24] MEDS: HYDROmorphone HCl 1 MG/ML SYRINGE 0.5 MG IVPUSH ×4 (00:30→16:19)
[2021-08-24] MEDS: oxyCODONE HCl Immed Release 5 MG TABLET PO ×3 (02:45→19:00)
[2021-08-24] MEDS: Piperacillin Sodium/Tazobactam 3.375 GM in 0.9 % Sodium Chloride 50 ML IV ×2 (02:50→09:18)
[2021-08-24 03:46] VITALS: BP 116/47; PULSE 59; RESP 18; TEMP 37; O2SAT 90
[2021-08-24 05:18] LABS: Creatinine Clr Calc Pharmacy 103.3; Estimated Glomerular Filt Rate > 60
[2021-08-24] MEDS: Levothyroxine Sodium 150 MCG TABLET PO (05:52)
[2021-08-24] MEDS: Omeprazole 20 MG CAPSULE.DR PO (05:52)
[2021-08-24 07:28] VITALS: BP 155/74; PULSE 60; RESP 20; TEMP 36.8; O2SAT 90
[2021-08-24 07:49] LABS: Glucose, Whole Blood 62 mg/dL (60-115)
[2021-08-24 08:03] LABS: Glucose, Whole Blood 80 mg/dL (60-115)
[2021-08-24 09:04] LABS: MANUAL DIFF FLAG NO
[2021-08-24 09:07] LABS: Basophils Absolute Auto 0.1 X10*3/uL (0.0-0.2); Basophils Percent Auto 0.4 % (0-2); Eosinophils Absolute Auto 0.1 X10*3/uL (0.0-0.4); Eosinophils Percent Auto 0.5 % (0-4); Hematocrit 41.5 % (42.0-52.0); Hemoglobin 13.8 g/dl (14.0-18.0); Imm Gran Abs Auto 0.07 X10*3/uL (0.00-0.03); Imm Gran Pct Auto 0.4 % (0.0-0.4); Lymphocytes Percent Auto 21.7 % (20-40); Mean Corpuscular HGB Conc 33.3 g/dl (31.0-36.0); Mean Corpuscular Hemoglobin 30.3 pg (27.0-33.0); Mean Corpuscular Volume 91.2 fL (80.0-98.0); Mean Platelet Volume 9.7 fL (9.4-12.4); Monocytes Absolute Auto 1.5 X10*3/uL (0.1-1.2); Monocytes Percent Auto 8.1 % (2-11); Neutrophils Absolute Auto 12.6 x10*3/uL (2.0-8.3); Neutrophils Percent Auto 68.9 % (45-73); Platelet Count 184 X10*3/uL (160-400); Red Blood Count 4.55 X10*6/uL (4.60-5.80); Red Cell Distribution Width 13.1 % (11.0-16.0); White Blood Count 18.4 X10*3/uL (4.8-10.8)
[2021-08-24] MEDS: Propranolol HCL LA 60 MG CAP.SA.24H 120 MG PO (09:11)
[2021-08-24] MEDS: Ranolazine 500 MG TAB.ER.12H PO ×2 (09:12→21:23)
[2021-08-24] MEDS: Metoprolol Succinate ER 50 MG TAB.ER.24H PO (09:12)
[2021-08-24] MEDS: Sacubitril/Valsartan 24/26 1 TAB TABLET PO ×2 (09:12→21:23)
[2021-08-24] MEDS: Atorvastatin Calcium 80 MG TABLET PO (09:12)
[2021-08-24] MEDS: Meclizine HCl 12.5 MG TABLET PO ×2 (09:12→21:23)
[2021-08-24] MEDS: Cyclobenzaprine HCl 5 MG TABLET PO ×2 (09:12→21:23)
[2021-08-24] MEDS: Heparin Sodium,Porcine 5,000 UNIT/ML VIAL 5000 UNIT SUBCUT ×2 (09:15→21:23)
[2021-08-24 11:05] LABS: Glucose, Whole Blood 156 mg/dL (60-115)
[2021-08-24] MEDS: Insulin Lispro 100 UNIT/ML 3 ML VIAL SUBCUT ×2 (11:47→21:23)
[2021-08-24 11:50] VITALS: BP 154/62; PULSE 64; RESP 20; TEMP 36.5; O2SAT 93
--- NOTE | 2021-08-24 11:55 | HO.PM.IMPN ---
Subjective Subjective Date of Service: 08/24/21 Interval History: seen and examined this morning follow up for staph bacteremia continue to have lower back pain, no radiating pain denies sob, cough Review of Systems Review of Systems: Yes all other systems are reviewed and are negative Constitutional Constitutional: Denies chills and Denies fever(s) Cardiovascular Cardiovascular: Denies chest pain Respiratory Respiratory: Denies cough Gastrointestinal Gastrointestinal: Denies abdominal pain Physical Exam Vital Signs: Vital Signs: Last Vital Signs Temp 97.7 F 08/24/21 11:50 Pulse 64 08/24/21 11:50 Resp 20 08/24/21 11:50 BP 154/62 H 08/24/21 11:50 Pulse Ox 93 08/24/21 11:50 BMI result Body Mass Index 36.3 Const: General: no acute distress, alert and awake Nutritional Appearance: overweight Orientation/consciousness: patient oriented x3 HENMT: Head: Yes normocephalic and Yes atraumatic Resp: Other: diminished Effort & Inspection: normal respiratory effort and no respiratory distress Cardio: Rate: regular rate Rhythm: regular rhythm GI: Inspection: No distended Palpation (GI): Soft to palpation and nontender Neuro: General: patient oriented x3 Cranial nerves: Yes CN's II-XII intact bilaterally and Yes Bilaterally intact EOM present Extrem: Other: able to move all 4 extremities spontaneously Objective Data Active Medications Acetaminophen (Acetaminophen 325 Mg Tablet) 650 mg PO Q6H PRN PRN Reason: Pain, Mild (Pain Scale 1-3) Last Admin: 08/23/21 11:32 Dose: 650 mg Documented by: CHRISTOPHER Atorvastatin Calcium (Atorvastatin Calcium 80 Mg Tablet) 80 mg PO DAILY [facility] Last Admin: 08/24/21 09:12 Dose: 80 mg Documented by: ALEK Bisacodyl (Bisacodyl 5 Mg Tablet.) 10 mg PO BEDTIME PRN PRN Reason: Constipation Last Admin: 08/22/21 23:48 Dose: 10 mg Documented by: KALI Cyclobenzaprine HCl (Cyclobenzaprine Hcl 5 Mg Tablet) 5 mg PO BID [facility] Last Admin: 08/24/21 09:12 Dose: 5 mg Documented by: ALEK Dextrose (Dextrose 50 % 25 Gm/50 Ml Syringe) 25 gm IVPUSH Q15M PRN; Protocol PRN Reason: per Hypoglycemia Standing Ord. Docusate Sodium (Docusate Sodium 100 Mg Capsule) 100 mg PO DAILY PRN PRN Reason: Constipation Last Admin: 08/22/21 12:12 Dose: 100 mg Documented by: CANDY Glucose (Glucose Gel 15 Gm Gel..Gram.) 15 gm PO Q15M PRN; Protocol PRN Reason: per Hypoglycemia Standing Ord. Heparin Sodium (Porcine) (Heparin Sodium,Porcine 5,000 Unit/Ml Vial) 5,000 unit SUBCUT Q12H [facility] Last Admin: 08/24/21 09:15 Dose: 5,000 unit Documented by: ALEK Hydromorphone HCl (Hydromorphone Hcl 1 Mg/Ml Syringe) 0.5 mg IVPUSH Q4H PRN; Protocol PRN Reason: Pain, Moderate (Pain Scale 4-6 Last Admin: 08/24/21 11:48 Dose: 0.5 mg Documented by: ALEK Vancomycin HCl 1,000 mg/Vancomycin HCl 750 mg/ Sodium Chloride 535 mls @ 267.5 mls/hr IV Q24H [facility] Last Infusion: 08/24/21 01:49 Dose: 0 mls/hr Documented by: KALI Piperacillin Sod/Tazobactam (Sod 3.375 gm/ Sodium Chloride) 50 mls @ 100 mls/hr IV Q6H [facility] Last Infusion: 08/24/21 09:58 Dose: 100 mls/hr Documented by: ALEK Insulin Glargine (Insulin Glargine,Hum.Rec.Anlog 100 Unit/Ml 10 Ml Vial) 34 unit SUBCUT BEDTIME [facility] Last Admin: 08/23/21 21:06 Dose: 34 unit Documented by: KALI Insulin Human Lispro (Insulin Lispro 100 Unit/Ml 3 Ml Vial) 0 unit SUBCUT QIDACHS [facility]; Protocol Last Admin: 08/24/21 11:47 Dose: 2 unit Documented by: ALEK Levothyroxine Sodium (Levothyroxine Sodium 150 Mcg Tablet) 150 mcg PO DAILY@0600 [facility] Last Admin: 08/24/21 05:52 Dose: 150 mcg Documented by: KALI Lidocaine (Lidocaine 4 % Patch Adh..Patch) 1 patch TRANSDERMA DAILY [facility]; Protocol Last Admin: 08/23/21 07:20 Dose: 1 patch Documented by: CHRISTOPHER Meclizine HCl (Meclizine Hcl 12.5 Mg Tablet) 12.5 mg PO BID [facility] Last Admin: 08/24/21 09:12 Dose: 12.5 mg Documented by: ALEK Metoprolol Succinate (Metoprolol Succinate Er 50 Mg Tab.Er.24h) 50 mg PO DAILY [facility]; Protocol Last Admin: 08/24/21 09:12 Dose: 50 mg Documented by: ALEK Mexiletine HCl (Mexiletine Hcl 150 Mg Capsule) 150 mg PO Q8H [facility] Last Admin: 08/24/21 05:52 Dose: 150 mg Documented by: KALI Omeprazole (Omeprazole 20 Mg Capsule.Dr) 20 mg PO DAILY@0630 [facility] Last Admin: 08/24/21 05:52 Dose: 20 mg Documented by: KALI Ondansetron HCl (Ondansetron Hcl 4 Mg/2 Ml Vial) 4 mg IVPUSH Q8H PRN PRN Reason: Nausea and Vomiting Oxycodone HCl (Oxycodone Hcl Immed Release 5 Mg Tablet) 5 mg PO Q4H PRN PRN Reason: Pain, Mild (Pain Scale 1-3) Last Admin: 08/24/21 09:12 Dose: 5 mg Documented by: ALEK Pharmacy Consult (Consult Rx Perform Med Rec) 1 each MISCELLANE ONCE PRN PRN Reason: Consult order Pharmacy Consult (Consult Rx Vancomycin Dosing) 1 each MISCELLANE DAILY PRN PRN Reason: Consult order Pharmacy Consult (Consult Rx Vancomycin Dosing) 1 each MISCELLANE DAILY PRN PRN Reason: Consult order Propranolol HCl (Propranolol Hcl La 60 Mg Cap.Sa.24h) 120 mg PO DAILY [facility]; Protocol Last Admin: 08/24/21 09:11 Dose: 120 mg Documented by: ALEK Ranolazine (Ranolazine 500 Mg Tab.Er.12h) 500 mg PO BID [facility] Last Admin: 08/24/21 09:12 Dose: 500 mg Documented by: ALEK Sacubitril/Valsartan (Sacubitril/Valsartan 1 Tab Tablet) 1 tab PO BID [facility]; Protocol Last Admin: 08/24/21 09:12 Dose: 1 tab Documented by: ALEK Torsemide (Torsemide 20 Mg Tablet) 40 mg PO TIDWM MARTHA; Protocol Last Admin: 08/21/21 08:56 Dose: 40 mg Documented by: GEOVANNY Labs CBC & Chem 7: 08/24/21 08:59 08/24/21 04:43 Labs: Laboratory Results - last 24 hr 08/23/21 08/23/21 08/23/21 15:11 19:58 20:53 MCV MCH MCHC RDW Plt Count MPV Immature Gran % (Auto) Neut % (Auto) Lymph % (Auto) [place] % (Auto) Eos % (Auto) Baso % (Auto) Lymph # (Auto) [place] # (Auto) Eos # (Auto) Baso # (Auto) Abs Immat Gran (auto) Absolute Neuts (auto) Absolute Nucleated RBC Nucleated RBC % (auto) Estim Creat Clear Calc Estimated GFR POC Glucose 128 H 148 H Vancomycin Trough 8.4 L 08/24/21 08/24/21 08/24/21 04:43 07:30 07:58 MCV MCH MCHC RDW Plt Count MPV Immature Gran % (Auto) Neut % (Auto) Lymph % (Auto) [place] % (Auto) Eos % (Auto) Baso % (Auto) Lymph # (Auto) [place] # (Auto) Eos # (Auto) Baso # (Auto) Abs Immat Gran (auto) Absolute Neuts (auto) Absolute Nucleated RBC Nucleated RBC % (auto) Estim Creat Clear Calc 103.3 Estimated GFR > 60 POC Glucose 62 80 Vancomycin Trough 08/24/21 08/24/21 08:59 11:01 MCV 91.2 MCH 30.3 MCHC 33.3 RDW 13.1 Plt Count 184 D MPV 9.7 Immature Gran % (Auto) 0.4 Neut % (Auto) 68.9 Lymph % (Auto) 21.7 [place] % (Auto) 8.1 Eos % (Auto) 0.5 Baso % (Auto) 0.4 Lymph # (Auto) 4.0 [place] # (Auto) 1.5 H Eos # (Auto) 0.1 Baso # (Auto) 0.1 Abs Immat Gran (auto) 0.07 H Absolute Neuts (auto) 12.6 H Absolute Nucleated RBC 0.000 Nucleated RBC % (auto) 0.0 Estim Creat Clear Calc Estimated GFR POC Glucose 156 H Vancomycin Trough Microbiology Microbiology Results: Microbiology 08/22/21 17:25 Blood Culture - Final Blood - Venous Methicillin Res Staph Aureus 08/22/21 16:19 Blood Culture - Preliminary Blood - Venous No growth after 24 hours. 08/20/21 16:10 Blood Culture - Final Blood - Venous Methicillin Res Staph Aureus 08/20/21 16:09 Blood Culture - Final Blood - Venous Methicillin Res Staph Aureus Assessment and Plan (1) Staph aureus infection: Status: Acute Assessment and Plan: this is a 71-year-old male with past medical history of diabetes, hypothyroidism, CHF who presents to the hospital with?complaints of weakness found to have fever of unknown origin FOU/staph bacteremia BCx from 08/202 positive for MRSA; BCx from 08/22 08/06 + ESR 27, CRP 22 ECHO with no evidence of endocarditis Left hip, Right knee prosthesis, but no evidence of infection on ct abdomen/pelvis from 08/20, will xray right knee Seen by ID ?-continue IV vanoc/zosyn CAD/Chronic HFrEF echo showing EF 30-35% with ineroseptal wall, basal inferior, mid inferior and apical segments akinetic and basal inferolateral segment dyskinetic. no previous for comparison euvolemic -Continue BB/ASA/Statin/Entresto/ranexa/torsemide ? DMII ? -continue Lantus ? -SSI GERD ? ? - continue PPI back pain /in setting of mrsa bacteremia ? MRI? can not be done today probably related to pacemaker-(dUE? pacemaker information needed his DR Pallavi Suarez in [place]) . ?will add CT scan lumbar spine. ?ID follow-up hypothyroidism continue synthroid ?full code ?heparin attending: dr. yue Pérez Stroke Does the patient have a stroke diagnosis?: No VTE Prior VTE?: No VTE Risk Level:: Medical - moderate - high VTE Device Contraindication: Treatment Not Indicated VTE Drug Contraindication: N/A - Med Ordered
[2021-08-24 15:56] VITALS: BP 153/67; PULSE 61; RESP 18; TEMP 37.1; O2SAT 90
[2021-08-24 16:03] LABS: Glucose, Whole Blood 128 mg/dL (60-115)
[2021-08-24 20:00] VITALS: BP 147/70; PULSE 63; RESP 20; TEMP 37.6; O2SAT 90
[2021-08-24 21:01] LABS: Glucose, Whole Blood 206 mg/dL (60-115)
[2021-08-24] MEDS: Insulin Glargine,Hum.rec.anlog 100 UNIT/ML 10 ML VIAL 34 UNIT SUBCUT (21:24)
[2021-08-24 21:34] LABS: Vancomycin Random 8.5 mcg/mL (15-20)
[2021-08-24 23:51] VITALS: BP 149/74; PULSE 57; RESP 18; TEMP 36.4; O2SAT 91
[2021-08-25] VITALS (7 sets, daily range): BP systolic 134–153; BP diastolic 64–79; PULSE 53–60; RESP 17–20; TEMP 36.6–37.1; O2SAT 90–95
[2021-08-25] MEDS: HYDROmorphone HCl 1 MG/ML SYRINGE 0.5 MG IVPUSH ×4 (00:19→13:22)
[2021-08-25] MEDS: vancomycin HCL 1,000 MG, vancomycin HCL 750 MG in 0.9 % Sodium Chloride 500 ML 267.5 MG IV (00:23)
[2021-08-25] MEDS: oxyCODONE HCl Immed Release 5 MG TABLET PO ×5 (03:33→21:30)
--- NOTE | 2021-08-25 04:13 | PC.NURSE ---
0000; Upon assessment, patient complaining of 8/10 back pain, reports gets mildly sob when ambulating to the bathroom with walker with standby assist. L/S clear, no cough noted, patient offers no other complaints at this time, vss. Medicated with prn dilaudid for pain with good effect.
[2021-08-25] MEDS: Levothyroxine Sodium 150 MCG TABLET PO (05:12)
[2021-08-25] MEDS: Omeprazole 20 MG CAPSULE.DR PO (05:13)
[2021-08-25 05:42] LABS: MANUAL DIFF FLAG NO
[2021-08-25 05:53] LABS: Basophils Percent Auto 0.2 % (0-2); Hematocrit 36.4 % (42.0-52.0); Hemoglobin 12.3 g/dl (14.0-18.0); Imm Gran Pct Auto 0.6 % (0.0-0.4); Lymphocytes Absolute Auto 3.2 X10*3/uL (1.2-4.9); Lymphocytes Percent Auto 18.7 % (20-40); Mean Corpuscular HGB Conc 33.8 g/dl (31.0-36.0); Mean Corpuscular Hemoglobin 30.5 pg (27.0-33.0); Mean Corpuscular Volume 90.3 fL (80.0-98.0); Monocytes Absolute Auto 0.8 X10*3/uL (0.1-1.2); Monocytes Percent Auto 4.5 % (2-11); Neutrophils Absolute Auto 12.9 x10*3/uL (2.0-8.3); Platelet Count 203 X10*3/uL (160-400); Red Blood Count 4.03 X10*6/uL (4.60-5.80); Red Cell Distribution Width 12.8 % (11.0-16.0)
[2021-08-25 06:09] LABS: Anion Gap 15 (12-20); Blood Urea Nitrogen 14 mg/dL (9-16); Calcium 8.8 mg/dL (8.4-10.2); Carbon Dioxide 27 mmol/L (22-29); Chloride 100 mmol/L (96-108); Creatinine Clr Calc Pharmacy 101.1; Estimated Glomerular Filt Rate > 60; Glucose Random 165 mg/dL (60-115); Potassium 3.7 mmol/L (3.3-5.1); Sodium 138 mmol/L (135-145)
[2021-08-25 08:24] LABS: Glucose, Whole Blood 138 mg/dL (60-115)
[2021-08-25] MEDS: Acetaminophen 325 MG TABLET 650 MG PO (09:26)
[2021-08-25] MEDS: Ranolazine 500 MG TAB.ER.12H PO ×2 (09:27→21:03)
[2021-08-25] MEDS: Lidocaine 4 % Patch ADH..PATCH 1 PATCH TRANSDERMA (09:27)
[2021-08-25] MEDS: Meclizine HCl 12.5 MG TABLET PO ×2 (09:27→21:03)
[2021-08-25] MEDS: Propranolol HCL LA 60 MG CAP.SA.24H 120 MG PO (09:27)
[2021-08-25] MEDS: Metoprolol Succinate ER 50 MG TAB.ER.24H PO (09:27)
[2021-08-25] MEDS: Atorvastatin Calcium 80 MG TABLET PO (09:28)
[2021-08-25] MEDS: Docusate Sodium 100 MG CAPSULE PO (09:28)
[2021-08-25] MEDS: Sacubitril/Valsartan 24/26 1 TAB TABLET PO ×2 (09:28→21:03)
[2021-08-25] MEDS: Cyclobenzaprine HCl 5 MG TABLET PO ×2 (09:28→21:03)
[2021-08-25] MEDS: Heparin Sodium,Porcine 5,000 UNIT/ML VIAL 5000 UNIT SUBCUT ×2 (09:33→21:02)
[2021-08-25 12:13] LABS: Glucose, Whole Blood 168 mg/dL (60-115)
[2021-08-25] MEDS: Insulin Lispro 100 UNIT/ML 3 ML VIAL SUBCUT (12:26)
--- NOTE | 2021-08-25 12:52 | P.PNIM_ITS ---
Subjective Subjective Date of Service: 08/25/21 Interval History: Seen and examined this morning Follow-up for MRSA bacteremia, back pain Back pain improving somewhat No fever, no shortness of breath no cough, no chest pain Review of Systems Review of Systems: Yes all other systems are reviewed and are negative Constitutional Constitutional: Denies chills and Denies fever(s) Cardiovascular Cardiovascular: Denies chest pain Respiratory Respiratory: Denies cough Gastrointestinal Gastrointestinal: Denies abdominal pain Physical Exam Vital Signs: Vital Signs: Last Vital Signs Temp 97.8 F 08/25/21 12:00 Pulse 59 08/25/21 12:00 Resp 20 08/25/21 12:00 BP 152/66 H 08/25/21 12:00 Pulse Ox 92 08/25/21 12:00 BMI result Body Mass Index 36.3 Const: General: no acute distress, alert and awake Nutritional Appearance: overweight Orientation/consciousness: patient oriented x3 HENMT: Head: Yes normocephalic and Yes atraumatic Resp: Other: diminished, no rhonchi, rales, wheezing Effort & Inspection: normal respiratory effort and no respiratory distress Cardio: Rate: regular rate Rhythm: regular rhythm GI: Inspection: No distended Palpation (GI): Soft to palpation and nontender Neuro: General: patient oriented x3 Cranial nerves: Yes CN's II-XII intact bilaterally and Yes Bilaterally intact EOM present Extrem: Other: able to move all 4 extremities spontaneously Objective Data Active Medications Acetaminophen (Acetaminophen 325 Mg Tablet) 650 mg PO Q6H PRN PRN Reason: Pain, Mild (Pain Scale 1-3) Last Admin: 08/25/21 09:26 Dose: 650 mg Documented by: ALAN Atorvastatin Calcium (Atorvastatin Calcium 80 Mg Tablet) 80 mg PO DAILY [facility] Last Admin: 08/25/21 09:28 Dose: 80 mg Documented by: ALAN Bisacodyl (Bisacodyl 5 Mg Tablet.) 10 mg PO BEDTIME PRN PRN Reason: Constipation Last Admin: 08/22/21 23:48 Dose: 10 mg Documented by: KALI Cyclobenzaprine HCl (Cyclobenzaprine Hcl 5 Mg Tablet) 5 mg PO BID [facility] Last Admin: 08/25/21 09:28 Dose: 5 mg Documented by: ALAN Dextrose (Dextrose 50 % 25 Gm/50 Ml Syringe) 25 gm IVPUSH Q15M PRN; Protocol PRN Reason: per Hypoglycemia Standing Ord. Docusate Sodium (Docusate Sodium 100 Mg Capsule) 100 mg PO DAILY [facility] [place] Last Admin: 08/25/21 09:28 Dose: 100 mg Documented by: ALAN Glucose (Glucose Gel 15 Gm Gel..Gram.) 15 gm PO Q15M PRN; Protocol PRN Reason: per Hypoglycemia Standing Ord. Heparin Sodium (Porcine) (Heparin Sodium,Porcine 5,000 Unit/Ml Vial) 5,000 unit SUBCUT Q12H [facility] [place] Last Admin: 08/25/21 09:33 Dose: 5,000 unit Documented by: ALAN Hydromorphone HCl (Hydromorphone Hcl 1 Mg/Ml Syringe) 0.5 mg IVPUSH Q4H PRN; Protocol PRN Reason: Pain, Moderate (Pain Scale 4-6 Last Admin: 08/25/21 09:25 Dose: 0.5 mg Documented by: ALAN Vancomycin HCl 2,000 mg/ (Sodium Chloride) 540 mls @ 270 mls/hr IV Q24H [facility] Insulin Glargine (Insulin Glargine,Hum.Rec.Anlog 100 Unit/Ml 10 Ml Vial) 34 unit SUBCUT BEDTIME [facility] Last Admin: 08/24/21 21:24 Dose: 34 unit Documented by: PAM Insulin Human Lispro (Insulin Lispro 100 Unit/Ml 3 Ml Vial) 0 unit SUBCUT QIDACHS [facility]; Protocol Last Admin: 08/25/21 12:26 Dose: 2 unit Documented by: ALAN Levothyroxine Sodium (Levothyroxine Sodium 150 Mcg Tablet) 150 mcg PO DAILY@0600 [facility] Last Admin: 08/25/21 05:12 Dose: 150 mcg Documented by: TUMASY Lidocaine (Lidocaine 4 % Patch Adh..Patch) 1 patch TRANSDERMA DAILY [facility]; Protocol Last Admin: 08/25/21 09:27 Dose: 1 patch Documented by: ALAN Meclizine HCl (Meclizine Hcl 12.5 Mg Tablet) 12.5 mg PO BID [facility] [place] Last Admin: 08/25/21 09:27 Dose: 12.5 mg Documented by: ALAN Metoprolol Succinate (Metoprolol Succinate Er 50 Mg Tab.Er.24h) 50 mg PO DAILY [facility] [place]; Protocol Last Admin: 08/25/21 09:27 Dose: 50 mg Documented by: ALAN Mexiletine HCl (Mexiletine Hcl 150 Mg Capsule) 150 mg PO Q8H [facility] [place] Last Admin: 08/25/21 12:27 Dose: 150 mg Documented by: ALAN Omeprazole (Omeprazole 20 Mg Capsule.Dr) 20 mg PO DAILY@0630 [facility] [place] Last Admin: 08/25/21 05:13 Dose: 20 mg Documented by: AMAYA Ondansetron HCl (Ondansetron Hcl 4 Mg/2 Ml Vial) 4 mg IVPUSH Q8H PRN PRN Reason: Nausea and Vomiting Oxycodone HCl (Oxycodone Hcl Immed Release 5 Mg Tablet) 5 mg PO Q4H PRN PRN Reason: Pain, Mild (Pain Scale 1-3) Last Admin: 08/25/21 09:26 Dose: 5 mg Documented by: ALAN Pharmacy Consult (Consult Rx Perform Med Rec) 1 each MISCELLANE ONCE PRN PRN Reason: Consult order Pharmacy Consult (Consult Rx Vancomycin Dosing) 1 each MISCELLANE DAILY PRN PRN Reason: Consult order Pharmacy Consult (Consult Rx Vancomycin Dosing) 1 each MISCELLANE DAILY PRN PRN Reason: Consult order Propranolol HCl (Propranolol Hcl La 60 Mg Cap.Sa.24h) 120 mg PO DAILY [facility] [place]; Protocol Last Admin: 08/25/21 09:27 Dose: 120 mg Documented by: ALAN Ranolazine (Ranolazine 500 Mg Tab.Er.12h) 500 mg PO BID [facility] [place] Last Admin: 08/25/21 09:27 Dose: 500 mg Documented by: ALAN Sacubitril/Valsartan (Sacubitril/Valsartan 1 Tab Tablet) 1 tab PO BID [facility] [place]; Protocol Last Admin: 08/25/21 09:28 Dose: 1 tab Documented by: ALAN Torsemide (Torsemide 20 Mg Tablet) 40 mg PO TIDWM [facility]; Protocol Last Admin: 08/21/21 08:56 Dose: 40 mg Documented by: GEOVANNY Labs CBC & Chem 7: 08/25/21 04:56 08/25/21 04:56 Labs: Laboratory Results - last 24 hr 08/24/21 08/24/21 08/24/21 15:59 20:54 21:01 MCV MCH MCHC RDW Plt Count MPV Immature Gran % (Auto) Neut % (Auto) Lymph % (Auto) [place] % (Auto) Eos % (Auto) Baso % (Auto) Lymph # (Auto) [place] # (Auto) Eos # (Auto) Baso # (Auto) Abs Immat Gran (auto) Absolute Neuts (auto) Absolute Nucleated RBC Nucleated RBC % (auto) Anion Gap Estim Creat Clear Calc Estimated GFR POC Glucose 128 H 206 H Random Glucose Calcium Random Vancomycin 8.5 L 08/25/21 08/25/21 08/25/21 04:56 04:56 07:26 MCV 90.3 MCH 30.5 MCHC 33.8 RDW 12.8 Plt Count 203 MPV 10.0 Immature Gran % (Auto) 0.6 H Neut % (Auto) 76.0 H Lymph % (Auto) 18.7 L [place] % (Auto) 4.5 Eos % (Auto) 0.0 Baso % (Auto) 0.2 Lymph # (Auto) 3.2 [place] # (Auto) 0.8 Eos # (Auto) 0.0 Baso # (Auto) 0.0 Abs Immat Gran (auto) 0.10 H Absolute Neuts (auto) 12.9 H Absolute Nucleated RBC 0.000 Nucleated RBC % (auto) 0.0 Anion Gap 15 Estim Creat Clear Calc 101.1 Estimated GFR > 60 POC Glucose 138 H Random Glucose 165 H D Calcium 8.8 Random Vancomycin 08/25/21 11:48 MCV MCH MCHC RDW Plt Count MPV Immature Gran % (Auto) Neut % (Auto) Lymph % (Auto) [place] % (Auto) Eos % (Auto) Baso % (Auto) Lymph # (Auto) [place] # (Auto) Eos # (Auto) Baso # (Auto) Abs Immat Gran (auto) Absolute Neuts (auto) Absolute Nucleated RBC Nucleated RBC % (auto) Anion Gap Estim Creat Clear Calc Estimated GFR POC Glucose 168 H Random Glucose Calcium Random Vancomycin Microbiology Microbiology Results: Microbiology 08/22/21 16:19 Blood Culture - Preliminary Blood - Venous No growth after 48 hours. 08/22/21 17:25 Blood Culture - Final Blood - Venous Methicillin Res Staph Aureus Assessment and Plan (1) MRSA bacteremia: Status: Acute Assessment and Plan: this is a 71-year-old male with past medical history of diabetes, hypothyroidism, CHF who presents to the hospital with?complaints of weakness found to have fever of unknown origin MRSA bacteremia BCx from 08/20 2/2 positive for MRSA; BCx from 08/22 1/2 + ESR 27, CRP 22 ECHO with no evidence of endocarditis Left hip, Right knee prosthesis, but no evidence of infection on ct abdomen/pe lvis from 08/20, xray right knee limited echo to eval pacer leads for infection continue IV vanoc, will d/c zosyn ID following back pain unable to obtain MRI due to PM CT lumbar spine showing multilevel degenerative changes, chronic b/l L5 pars defects. no infectious process seen Pain present for years, no radiation, no bowel incontinence CAD/Chronic HFrEF echo showing EF 30-35% with ineroseptal wall, basal inferior, mid inferior and apical segments akinetic and basal inferolateral segment dyskinetic. no previous for comparison euvolemic Continue BB/ASA/Statin/Entresto/ranexa/torsemide Outpatient follow-up with Cardiology ? DMII ?continue Lantus ?SSI GERD ? ? - continue PPI hypothyroidism continue synthroid ?full code ?heparin attending: dr. turner Quality Stroke Does the patient have a stroke diagnosis?: No VTE Prior VTE?: No VTE Risk Level:: Medical - moderate - high VTE Device Contraindication: Treatment Not Indicated VTE Drug Contraindication: N/A - Med Ordered
--- NOTE | 2021-08-25 13:00 | CA_ITS ---
Transthoracic Echocardiogram Patient (Last, First, Middle): Michael Salinas, Gender: Male Date of : 1950 Age: 71 Procedure Date: 08/25/2021 Procedure Type: Transthoracic Echocardiogram Location: S3E Height: 185.42 cm Weight: 124.74 kg BSA: 2.46 m2 Heart Rate: bpm BP: 152 / 66 mmHg Screening Specialist: Referring MD: Gerri ORTIZ Symptoms: mrsa bacteremia ? pacemaker leads infected Study Quality: Fair Conclusions: - Limited TTE to assess the ICD lead in patient with MRSA bacteremia. - The lead appears thickened but no obvious vegetations. Findings Right Ventricle There is an ICD wire seen in the right ventricle. The ICD lead appears thickened but no obvious mass attached to the lead to suggest endocardits. Venous The inferior vena cava is dilated and collapses greater than 50% with inspiration. Pericardium/Pleural There is no evidence of pericardial effusion. Recommendations, Care & Conclusions Consider a GORDY if clinically appropriate. Measurements 2D Linear Measurements IVSd: 1.59 0.6-0.9/0.6-1.0 cm LVIDd: 6.11 3.9-5.3/4.2-5.9 cm LVIDd Index: 2.48 2.4-3.2/2.2-3.1 cm/m2 LVIDs: 5.28 2.0-3.6 cm LVPWd: 1.52 0.7-1.1 cm LV Mass: 577.91 67-162/88-224 g LV Mass Index: 234.92 43-95/49-115 g/m2 Tricuspid Valve TR Pk [place]: 2.07 TR Pk Grad: 17.00 Updated in Other Vendor System with Status of Final Iam Delgado MD electronically signed on 08/25/2021 7:52:34 PM with status of Final
--- NOTE | 2021-08-25 13:56 | PM.CNCAR ---
History of Present Illness History of Present Illness Date of Service: 08/25/21 <ANAHI Kelly - Last Filed: 08/25/21 15:56> 08/25/21 <Iam Delgado MD - Last Filed: 08/25/21 18:02> Requesting physician: Gerri Velazquez <ANAHI Kelly - Last Filed: 08/25/21 15:56> Chief complaint: Sepsis <ANAHI Kelly - Last Filed: 08/25/21 15:56> Narrative: Michael is a 71-year-old male with past medical history of hypertension, hyperlipidemia, diabetes, carotid endarterectomy on left in 2006, CAD with anterior wall MO 2000, lad stent at that time, atrial flutter status post atrial flutter ablation, ischemic cardiomyopathy, status post single lead ICD, V-tach storm, chronic systolic heart failure who was admitted to [facility] on 08/20/2020 with weakness and has been treated for bacteremia, sepsis. He has undergone multiple tests to evaluate cause of infection without significant findings. His chest CT showed no acute abnormalities. A CT scan of the lumbar spine was done due to reports of significant low back discomfort showing no signs of infection. An echocardiogram was done showing EF 630-35%, regional wall motion abnormalities and no significant valve abnormality. He has been receiving IV antibiotics and continues to have an elevated white blood count. He is no longer febrile. The events of his admission have been fully reviewed. Cardiology has been consulted to evaluate for possible endocarditis. Today he reports he was feeling his normal self on the day prior to his admission. On the morning of his arrival he woke up and sat on the edge of the bed and was so weak he was not able to walk. He called the ambulance. He did not have any signs of sickness in the days prior, no fevers. He does tell me that early August he did have an infection in a left lower tooth. He did see his dental provider and tells me that he underwent a root canal. He says that he did have a abnormal taste/smell in his mouth for about a week afterwards. Denies being put on antibiotics at that time and does not recall having any signs of fever, chills or sweats. The mouth symptoms have since fully resolved and he currently has no tooth or mouth discomfort. He was supposed to see his dental provider last week except it was to cold out and he canceled the appointment. Today he reports feeling good with the exception of severe chronic low back discomfort. He describes a flare this admission due to sleeping in the hospital bed. It is not unusual for him to have this same discomfort periodically. He did not have it prior to his admission. He denies having any respiratory difficulty, no cough, PND, orthopnea, edema. No chest discomfort at rest or with activity. No heart palpitations, dizziness, presyncope, syncope, falls. He lives at home with his . He normally takes all his medications as directed. He follows with Dr. Farmer for cardiology. He was last seen in that office 06/29/2020. He has a Biotronik single lead ICD. <ANAHI Kelly - Last Filed: 08/25/21 15:56> Review of Systems Review of Systems: as above <ANAHI Kelly - Last Filed: 08/25/21 15:56> [facility] Past Medical History Medical History: Medical History (Updated 08/25/21 @ 14:34 by ANAHI Kelly) CAD (coronary artery disease) CHF (congestive heart failure) Chronic systolic heart failure Diabetes Hypothyroidism ICD (implantable cardioverter-defibrillator) in place Ischemic cardiomyopathy Pacemaker Ventricular tachyarrhythmia <ANAHI Kelly - Last Filed: 08/25/21 15:56> Family History Family history: reviewed and not pertinent <ANAHI Kelly - Last Filed: 08/25/21 15:56> Surgical History Surgical History: Surgical History H/O carotid endarterectomy History of heart artery stent History of hip replacement Total knee replacement status <ANAHI Kelly - Last Filed: 08/25/21 15:56> Social History Social History: Social History Household Members: Spouse Do you presently have visiting nurse or other home services: No Unable to assess alcohol history related to: Unable to respond Patient Tobacco Use Status: Former Tobacco user Substance Use Type: Marijuana service: No Current occupational status: disabled <ANAHI Kelly - Last Filed: 08/25/21 15:56> Meds Allergies/Adverse reactions: Allergies Allergy/AdvReac Type Severity Reaction Status Date / Time No Known Allergies Allergy Unknown Verified 01/25/21 14:21 <ANAHI Kelly - Last Filed: 08/25/21 15:56> Active Medications: Current Medications Acetaminophen (Acetaminophen 325 Mg Tablet) 650 mg PO Q6H PRN PRN Reason: Pain, Mild (Pain Scale 1-3) Last Admin: 08/25/21 09:26 Dose: 650 mg Documented by: Atorvastatin Calcium (Atorvastatin Calcium 80 Mg Tablet) 80 mg PO DAILY [facility] Last Admin: 08/25/21 09:28 Dose: 80 mg Documented by: Bisacodyl (Bisacodyl 5 Mg Tablet.Dr) 10 mg PO BEDTIME PRN PRN Reason: Constipation Last Admin: 08/22/21 23:48 Dose: 10 mg Documented by: Cyclobenzaprine HCl (Cyclobenzaprine Hcl 5 Mg Tablet) 5 mg PO BID [facility] Last Admin: 08/25/21 09:28 Dose: 5 mg Documented by: Dextrose (Dextrose 50 % 25 Gm/50 Ml Syringe) 25 gm IVPUSH Q15M PRN; Protocol PRN Reason: per Hypoglycemia Standing Ord. Docusate Sodium (Docusate Sodium 100 Mg Capsule) 100 mg PO DAILY [facility] Last Admin: 08/25/21 09:28 Dose: 100 mg Documented by: Glucose (Glucose Gel 15 Gm Gel..Gram.) 15 gm PO Q15M PRN; Protocol PRN Reason: per Hypoglycemia Standing Ord. Heparin Sodium (Porcine) (Heparin Sodium,Porcine 5,000 Unit/Ml Vial) 5,000 unit SUBCUT Q12H [facility] Last Admin: 08/25/21 09:33 Dose: 5,000 unit Documented by: Hydromorphone HCl (Hydromorphone Hcl 1 Mg/Ml Syringe) 0.5 mg IVPUSH Q4H PRN; Protocol PRN Reason: Pain, Moderate (Pain Scale 4-6 Last Admin: 08/25/21 13:22 Dose: 0.5 mg Documented by: Vancomycin HCl 2,000 mg/ (Sodium Chloride) 540 mls @ 270 mls/hr IV Q24H [facility] Insulin Glargine (Insulin Glargine,Hum.Rec.Anlog 100 Unit/Ml 10 Ml Vial) 34 unit SUBCUT BEDTIME [facility] Last Admin: 08/24/21 21:24 Dose: 34 unit Documented by: Insulin Human Lispro (Insulin Lispro 100 Unit/Ml 3 Ml Vial) 0 unit SUBCUT QIDACHS [facility]; Protocol Last Admin: 08/25/21 12:26 Dose: 2 unit Documented by: Levothyroxine Sodium (Levothyroxine Sodium 150 Mcg Tablet) 150 mcg PO DAILY@0600 [facility] Last Admin: 08/25/21 05:12 Dose: 150 mcg Documented by: Lidocaine (Lidocaine 4 % Patch Adh..Patch) 1 patch TRANSDERMA DAILY [facility]; Protocol Last Admin: 08/25/21 09:27 Dose: 1 patch Documented by: Meclizine HCl (Meclizine Hcl 12.5 Mg Tablet) 12.5 mg PO BID [facility] Last Admin: 08/25/21 09:27 Dose: 12.5 mg Documented by: Metoprolol Succinate (Metoprolol Succinate Er 50 Mg Tab.Er.24h) 50 mg PO DAILY [facility]; Protocol Last Admin: 08/25/21 09:27 Dose: 50 mg Documented by: Mexiletine HCl (Mexiletine Hcl 150 Mg Capsule) 150 mg PO Q8H [facility] Last Admin: 08/25/21 12:27 Dose: 150 mg Documented by: Omeprazole (Omeprazole 20 Mg Capsule.Dr) 20 mg PO DAILY@0630 [facility] Last Admin: 08/25/21 05:13 Dose: 20 mg Documented by: Ondansetron HCl (Ondansetron Hcl 4 Mg/2 Ml Vial) 4 mg IVPUSH Q8H PRN PRN Reason: Nausea and Vomiting Oxycodone HCl (Oxycodone Hcl Immed Release 5 Mg Tablet) 5 mg PO Q4H PRN PRN Reason: Pain, Mild (Pain Scale 1-3) Last Admin: 08/25/21 13:21 Dose: 5 mg Documented by: Pharmacy Consult (Consult Rx Perform Med Rec) 1 each MISCELLANE ONCE PRN PRN Reason: Consult order Pharmacy Consult (Consult Rx Vancomycin Dosing) 1 each MISCELLANE DAILY PRN PRN Reason: Consult order Pharmacy Consult (Consult Rx Vancomycin Dosing) 1 each MISCELLANE DAILY PRN PRN Reason: Consult order Propranolol HCl (Propranolol Hcl La 60 Mg Cap.Sa.24h) 120 mg PO DAILY [facility]; Protocol Last Admin: 08/25/21 09:27 Dose: 120 mg Documented by: Ranolazine (Ranolazine 500 Mg Tab.Er.12h) 500 mg PO BID [facility] Last Admin: 08/25/21 09:27 Dose: 500 mg Documented by: Sacubitril/Valsartan (Sacubitril/Valsartan 24/26 1 Tab Tablet) 1 tab PO BID [facility]; Protocol Last Admin: 08/25/21 09:28 Dose: 1 tab Documented by: Torsemide (Torsemide 20 Mg Tablet) 40 mg PO TIDWM [facility]; Protocol Last Admin: 08/21/21 08:56 Dose: 40 mg Documented by: <ANAHI Kelly - Last Filed: 08/25/21 15:56> Home medications: Home Medications Medication Instructions Recorded Confirmed Last Taken Type atorvastatin 80 mg tablet 1 tab PO DAILY 08/20/21 08/20/21 08/19/21 History insulin glargine 100 unit/mL (3 34 unit SUBCUT BEDTIME 08/20/21 08/20/21 08/19/21 History mL) subcutaneous pen (Lantus Solostar U-100 Insulin) levothyroxine 150 mcg tablet 1 tab PO QAM 08/20/21 08/20/21 08/19/21 History metoprolol succinate 50 mg 1 tab PO DAILY 08/20/21 08/20/21 08/19/21 History tablet,extended release 24 hr mexiletine 200 mg capsule 1 cap PO Q8H 08/20/21 08/20/21 08/19/21 History pantoprazole 40 mg tablet,delayed 1 tab PO DAILY 08/20/21 08/20/21 08/19/21 History release propranolol 120 mg capsule,24 1 cap PO DAILY 08/20/21 08/20/21 08/19/21 History hr,extended release ranolazine 500 mg tablet,extended 1 tab PO BID 08/20/21 08/20/21 08/19/21 History release,12 hr sacubitril 24 mg-valsartan 26 mg 1 tab PO BID 08/20/21 08/20/21 08/19/21 History tablet (Entresto) torsemide 20 mg tablet 2 tab PO TID 08/20/21 08/20/21 08/19/21 History <Soniya Rosa VIVEK Flores - Last Filed: 08/25/21 15:56> Physical Exam Vital Signs: Vital Signs: Last Vital Signs Temp 97.8 F 08/25/21 12:00 Pulse 59 08/25/21 12:00 Resp 20 08/25/21 12:00 BP 152/66 H 08/25/21 12:00 Pulse Ox 92 08/25/21 12:00 BMI result Body Mass Index 36.3 <Soniya VIVEK FloresC - Last Filed: 08/25/21 15:56> Const: General: cooperative, no acute distress, alert and awake <Soniya VIVEK Flores - Last Filed: 08/25/21 15:56> Orientation/consciousness: patient oriented x3 <Soniya VIVEK Flroes - Last Filed: 08/25/21 15:56> Neck: Neck: Yes normal visual inspection and Yes no JVD <Soniya VIVEK Flores - Last Filed: 08/25/21 15:56> Resp: Effort & Inspection: normal respiratory effort, able to speak in complete sentences and not labored <Soniya VIVEK FloresC - Last Filed: 08/25/21 15:56> Auscultation: clear to auscultation bilaterally, no rhonchi and no wheezes <Soniya VIVEK FloresC - Last Filed: 08/25/21 15:56> Cardio: Palpation: normal PMI <Soniya VIVEK FloresC - Last Filed: 08/25/21 15:56> Rate: regular rate <Soniya Mark [facility] - Last Filed: 08/25/21 15:56> Rhythm: regular rhythm <Soniya VIVEK Flores - Last Filed: 08/25/21 15:56> Heart sounds: S1 normal heart sound present and S2 normal heart sound present <Soniya VIVEK Flores - Last Filed: 08/25/21 15:56> Peripheral pulses: Peripheral pulses 2+ throughout <Soniya VIVEK Flores-C - Last Filed: 08/25/21 15:56> GI: Inspection: Yes normal to inspection <ANAHI Kelly - Last Filed: 08/25/21 15:56> Skin: General skin exam: no rashes or lesions noted <ANAHI Kelly - Last Filed: 08/25/21 15:56> Neuro: General: patient oriented x3 <ANAHI Kelly - Last Filed: 08/25/21 15:56> Extrem: General: Yes normal to inspection and No edema <ANAHI Kelly - Last Filed: 08/25/21 15:56> Objective Labs and Meds Result diagrams: : 08/25/21 04:56 08/25/21 04:56 <ANAHI Kelly - Last Filed: 08/25/21 15:56> Lab results: Laboratory Results - last 24 hr 08/24/21 08/24/21 08/24/21 15:59 20:54 21:01 WBC RBC Hgb Hct MCV MCH MCHC RDW Plt Count MPV Immature Gran % (Auto) Neut % (Auto) Lymph % (Auto) Coke % (Auto) Eos % (Auto) Baso % (Auto) Lymph # (Auto) Coke # (Auto) Eos # (Auto) Baso # (Auto) Abs Immat Gran (auto) Absolute Neuts (auto) Absolute Nucleated RBC Nucleated RBC % (auto) Sodium Potassium Chloride Carbon Dioxide Anion Gap BUN Creatinine Estim Creat Clear Calc Estimated GFR POC Glucose 128 H 206 H Random Glucose Calcium Random Vancomycin 8.5 L 08/25/21 08/25/21 08/25/21 04:56 04:56 07:26 WBC 17.0 H RBC 4.03 L Hgb 12.3 L Hct 36.4 L MCV 90.3 MCH 30.5 MCHC 33.8 RDW 12.8 Plt Count 203 MPV 10.0 Immature Gran % (Auto) 0.6 H Neut % (Auto) 76.0 H Lymph % (Auto) 18.7 L Coke % (Auto) 4.5 Eos % (Auto) 0.0 Baso % (Auto) 0.2 Lymph # (Auto) 3.2 Coke # (Auto) 0.8 Eos # (Auto) 0.0 Baso # (Auto) 0.0 Abs Immat Gran (auto) 0.10 H Absolute Neuts (auto) 12.9 H Absolute Nucleated RBC 0.000 Nucleated RBC % (auto) 0.0 Sodium 138 Potassium 3.7 Chloride 100 Carbon Dioxide 27 Anion Gap 15 BUN 14 Creatinine 0.94 Estim Creat Clear Calc 101.1 Estimated GFR > 60 POC Glucose 138 H Random Glucose 165 H D Calcium 8.8 Random Vancomycin 08/25/21 11:48 WBC RBC Hgb Hct MCV MCH MCHC RDW Plt Count MPV Immature Gran % (Auto) Neut % (Auto) Lymph % (Auto) Coke % (Auto) Eos % (Auto) Baso % (Auto) Lymph # (Auto) Coke # (Auto) Eos # (Auto) Baso # (Auto) Abs Immat Gran (auto) Absolute Neuts (auto) Absolute Nucleated RBC Nucleated RBC % (auto) Sodium Potassium Chloride Carbon Dioxide Anion Gap BUN Creatinine Estim Creat Clear Calc Estimated GFR POC Glucose 168 H Random Glucose Calcium Random Vancomycin <ANAHI Kelly - Last Filed: 08/25/21 15:56> Assessment and Plan (1) MRSA bacteremia: Status: Acute <ANAHI Kelly - Last Filed: 08/25/21 15:56> Admit with weakness, FUO, Sepsis, bacteremia without known source. Has been seen by ID. On IV Vancomycin. No longer febrile. WBC remains elevated at 17. Record/ Tests reviewed. Blood culture initially done 08/20, 08/22 show MRSA, repeat 08/24 shows no growth after 24 hrs. Echo shows EF, regional WMA, no significant valve abn. He describes dental infection/ root canal early August without use of antibiotics at that time. He does have a single lead ICD place. There is concern for possible endocarditis/ lead infection. Will obtain limited echo today to assess for any vegetation along RV ICD lead. Continue to treat with IV antibiotics. May still need GORDY this admit for further evaluation of valves, lead. We will follow along. <ANAHI Kelly - Last Filed: 08/25/21 15:56> (2) ICD (implantable cardioverter-defibrillator) in place: Status: Acute <ANAHI Kelly - Last Filed: 08/25/21 15:56> Biotronik single lead ICD in place, implanted 01/27/2018. Has not had any lead, gen change since that time. Followed by Dr Farmer at [facility]. Interrogation from 02/08/21 reviewed an device functioning normally. Battery 68%. No need for interrogation at this time. <ANAHI Kelly - Last Filed: 08/25/21 15:56> (3) CAD (coronary artery disease): Status: Acute <ANAHI Kelly - Last Filed: 08/25/21 15:56> Hx CAD, anterior MO with LAD stent 2000. No report of anginal symptoms. He should be on aspirin 81 mg daily - will restart. Continue Atorvastatin. I am trying to clarify his BB with his primary cardiology office. <ANAHI Kelly - Last Filed: 08/25/21 15:56> (4) Ischemic cardiomyopathy: Status: Acute <ANAHI Kelly - Last Filed: 08/25/21 15:56> EF 30-35% - same as prior reports. No clinical signs indicating decompensated HF. Continue usual home Enresto, torsemide. Watch for signs of CHF. <ANAHI Kelly - Last Filed: 08/25/21 15:56> (5) Ventricular tachyarrhythmia: Status: Acute <ANAHI Kelly - Last Filed: 08/25/21 15:56> Hx of CMP, s/p single lead ICD. Had VT storm in past. His cardiology office note states he is on Amiodarone - call out to clarify this and Metoprolol use. Continue Propranolol, Mexilitine. Keep K and Mg stable/ normal range. <ANAHI Kelly - Last Filed: 08/25/21 15:56> Procedures Date of Service Date of Service: 08/25/21 <ANAHI Kelly - Last Filed: 08/25/21 15:56>
[2021-08-25 16:24] LABS: Glucose, Whole Blood 142 mg/dL (60-115)
[2021-08-25 19:44] LABS: Glucose, Whole Blood 147 mg/dL (60-115)
[2021-08-25] MEDS: Insulin Glargine,Hum.rec.anlog 100 UNIT/ML 10 ML VIAL 34 UNIT SUBCUT (21:02)
[2021-08-26] VITALS (7 sets, daily range): BP systolic 142–175; BP diastolic 71–80; PULSE 50–68; RESP 17–19; TEMP 36.1–37.1; O2SAT 91–94
[2021-08-26] MEDS: HYDROmorphone HCl 1 MG/ML SYRINGE 0.5 MG IVPUSH ×2 (01:31→08:09)
[2021-08-26] MEDS: oxyCODONE HCl Immed Release 5 MG TABLET PO ×4 (02:58→21:08)
[2021-08-26] MEDS: Levothyroxine Sodium 150 MCG TABLET PO (07:14)
[2021-08-26] MEDS: Omeprazole 20 MG CAPSULE.DR PO (07:14)
[2021-08-26 07:41] LABS: Glucose, Whole Blood 111 mg/dL (60-115)
[2021-08-26 07:47] LABS: Creatinine Clr Calc Pharmacy 104.5; Estimated Glomerular Filt Rate > 60
[2021-08-26] MEDS: Metoprolol Succinate ER 50 MG TAB.ER.24H PO (08:10)
[2021-08-26] MEDS: Meclizine HCl 12.5 MG TABLET PO ×2 (08:10→21:08)
[2021-08-26] MEDS: Aspirin 81 MG TAB.CHEW PO (08:10)
[2021-08-26] MEDS: Acetaminophen 325 MG TABLET 650 MG PO ×2 (08:10→17:01)
[2021-08-26] MEDS: Ranolazine 500 MG TAB.ER.12H PO ×2 (08:10→21:08)
[2021-08-26] MEDS: Lidocaine 4 % Patch ADH..PATCH 1 PATCH TRANSDERMA (08:10)
[2021-08-26] MEDS: Atorvastatin Calcium 80 MG TABLET PO (08:11)
[2021-08-26] MEDS: Docusate Sodium 100 MG CAPSULE PO (08:11)
[2021-08-26] MEDS: Heparin Sodium,Porcine 5,000 UNIT/ML VIAL 5000 UNIT SUBCUT ×2 (08:11→21:07)
[2021-08-26] MEDS: Propranolol HCL LA 60 MG CAP.SA.24H 120 MG PO (08:11)
[2021-08-26] MEDS: Sacubitril/Valsartan 24/26 1 TAB TABLET PO ×2 (08:11→21:08)
[2021-08-26] MEDS: Cyclobenzaprine HCl 5 MG TABLET PO ×2 (08:11→21:08)
--- NOTE | 2021-08-26 11:12 | P.PNIM_ITS ---
Subjective Subjective Date of Service: 08/26/21 Review of Systems Follow-up for MRSA bacteremia, back pain Back pain improving somewhat No fever, no shortness of breath no cough, no chest pain Physical Exam Vital Signs: Vital Signs: Last Vital Signs Temp 98.8 F 08/26/21 07:36 Pulse 61 08/26/21 07:36 Resp 18 08/26/21 07:36 BP 164/80 H 08/26/21 07:36 Pulse Ox 91 L 08/26/21 07:36 BMI result Body Mass Index 36.3 Appearing in no acute distress lung sounds are clear to auscultation heart regular rate rhythm, clear S1, S2 positive bowel sounds, abdomen is soft, nontender neuro patient is alert x3, no focal deficits Objective Data Active Medications Acetaminophen (Acetaminophen 325 Mg Tablet) 650 mg PO Q6H PRN PRN Reason: Pain, Mild (Pain Scale 1-3) Last Admin: 08/26/21 08:10 Dose: 650 mg Documented by: ALAN Aspirin (Aspirin 81 Mg Tab.Chew) 81 mg PO DAILY [facility] Last Admin: 08/26/21 08:10 Dose: 81 mg Documented by: ALAN Atorvastatin Calcium (Atorvastatin Calcium 80 Mg Tablet) 80 mg PO DAILY [facility] Last Admin: 08/26/21 08:11 Dose: 80 mg Documented by: ALAN Bisacodyl (Bisacodyl 5 Mg Tablet.) 10 mg PO BEDTIME PRN PRN Reason: Constipation Last Admin: 08/22/21 23:48 Dose: 10 mg Documented by: KALI Cyclobenzaprine HCl (Cyclobenzaprine Hcl 5 Mg Tablet) 5 mg PO BID [facility] Last Admin: 08/26/21 08:11 Dose: 5 mg Documented by: ALAN Dextrose (Dextrose 50 % 25 Gm/50 Ml Syringe) 25 gm IVPUSH Q15M PRN; Protocol PRN Reason: per Hypoglycemia Standing Ord. Docusate Sodium (Docusate Sodium 100 Mg Capsule) 100 mg PO DAILY [facility] Last Admin: 08/26/21 08:11 Dose: 100 mg Documented by: ALAN Glucose (Glucose Gel 15 Gm Gel..Gram.) 15 gm PO Q15M PRN; Protocol PRN Reason: per Hypoglycemia Standing Ord. Heparin Sodium (Porcine) (Heparin Sodium,Porcine 5,000 Unit/Ml Vial) 5,000 unit SUBCUT Q12H [facility] Last Admin: 08/26/21 08:11 Dose: 5,000 unit Documented by: ALAN Hydromorphone HCl (Hydromorphone Hcl 1 Mg/Ml Syringe) 1 mg IVPUSH Q4H PRN; Protocol PRN Reason: Pain, Moderate (Pain Scale 4-6 Vancomycin HCl 2,000 mg/ (Sodium Chloride) 540 mls @ 270 mls/hr IV Q24H [facility] Last Infusion: 08/26/21 03:13 Dose: 270 mls/hr Documented by: JENNYFER Insulin Glargine (Insulin Glargine,Hum.Rec.Anlog 100 Unit/Ml 10 Ml Vial) 34 unit SUBCUT BEDTIME [facility] Last Admin: 08/25/21 21:02 Dose: 34 unit Documented by: DOROTEO Insulin Human Lispro (Insulin Lispro 100 Unit/Ml 3 Ml Vial) 0 unit SUBCUT QIDACHS [facility]; Protocol Last Admin: 08/26/21 08:54 Dose: Not Given Documented by: ALAN Non-Admin Reason: No Insulin Coverage Levothyroxine Sodium (Levothyroxine Sodium 150 Mcg Tablet) 150 mcg PO DAILY@0600 [facility] Last Admin: 08/26/21 07:14 Dose: 150 mcg Documented by: JENNYFER Lidocaine (Lidocaine 4 % Patch Adh..Patch) 1 patch TRANSDERMA DAILY [facility]; Protocol Last Admin: 08/26/21 08:10 Dose: 1 patch Documented by: ALAN Meclizine HCl (Meclizine Hcl 12.5 Mg Tablet) 12.5 mg PO BID [facility] Last Admin: 08/26/21 08:10 Dose: 12.5 mg Documented by: ALAN Metoprolol Succinate (Metoprolol Succinate Er 50 Mg Tab.Er.24h) 50 mg PO DAILY [facility]; Protocol Last Admin: 08/26/21 08:10 Dose: 50 mg Documented by: ALAN Mexiletine HCl (Mexiletine Hcl 150 Mg Capsule) 150 mg PO Q8H [facility] Last Admin: 08/26/21 07:14 Dose: 150 mg Documented by: JENNYFER Omeprazole (Omeprazole 20 Mg Capsule.Dr) 20 mg PO DAILY@0630 [facility] Last Admin: 08/26/21 07:14 Dose: 20 mg Documented by: JENNYFER Ondansetron HCl (Ondansetron Hcl 4 Mg/2 Ml Vial) 4 mg IVPUSH Q8H PRN PRN Reason: Nausea and Vomiting Oxycodone HCl (Oxycodone Hcl Immed Release 5 Mg Tablet) 5 mg PO Q4H PRN PRN Reason: Pain, Mild (Pain Scale 1-3) Last Admin: 08/26/21 02:58 Dose: 5 mg Documented by: JENNYFER Pharmacy Consult (Consult Rx Perform Med Rec) 1 each MISCELLANE ONCE PRN PRN Reason: Consult order Pharmacy Consult (Consult Rx Vancomycin Dosing) 1 each MISCELLANE DAILY PRN PRN Reason: Consult order Pharmacy Consult (Consult Rx Vancomycin Dosing) 1 each MISCELLANE DAILY PRN PRN Reason: Consult order Propranolol HCl (Propranolol Hcl La 60 Mg Cap.Sa.24h) 120 mg PO DAILY [facility]; Protocol Last Admin: 08/26/21 08:11 Dose: 120 mg Documented by: ALAN Ranolazine (Ranolazine 500 Mg Tab.Er.12h) 500 mg PO BID [facility] Last Admin: 08/26/21 08:10 Dose: 500 mg Documented by: ALAN Sacubitril/Valsartan (Sacubitril/Valsartan 1 Tab Tablet) 1 tab PO BID [facility]; Protocol Last Admin: 08/26/21 08:11 Dose: 1 tab Documented by: ALAN Torsemide (Torsemide 20 Mg Tablet) 40 mg PO TIDWM [facility]; Protocol Last Admin: 08/21/21 08:56 Dose: 40 mg Documented by: GEOVANNY Labs CBC & Chem 7: 08/25/21 04:56 08/26/21 07:10 Labs: Laboratory Results - last 24 hr 08/25/21 08/25/21 08/25/21 11:48 16:20 19:25 Estim Creat Clear Calc Estimated GFR POC Glucose 168 H 142 H 147 H 08/26/21 08/26/21 07:10 07:35 Estim Creat Clear Calc 104.5 Estimated GFR > 60 POC Glucose 111 Microbiology Microbiology Results: Microbiology 08/24/21 11:28 Blood Culture - Preliminary Blood - Venous No growth after 24 hours. 01/20/22 11:28 Blood Culture - Preliminary Blood - Venous No growth after 24 hours. Assessment and Plan (1) MRSA bacteremia: Status: Acute Assessment and Plan: this is a 71-year-old male with past medical history of diabetes, hypothyroidis m, CHF who presents to the hospital with?complaints of weakness found to have fever of unknown origin MRSA bacteremia BCx from 08/20 2/2 positive for MRSA; BCx from 08/22 1/2 + ESR 27, CRP 22 ECHO with no evidence of endocarditis Left hip, Right knee prosthesis, but no evidence of infection on ct abd omen/pelvis from 08/20, xray right knee continue IV vanoc, will d/c zosyn ID following Will need PICC Line for 4 weeks abx likely Saturday back pain unable to obtain MRI due to PM CT lumbar spine showing multilevel degenerative changes, chronic b/l L5 pars defects. no infectious process seen Pain present for years, no radiation, no bowel incontinence Lidocaine patches and pain management CAD/Chronic HFrEF echo showing EF 30-35% with ineroseptal wall, basal inferior, mid inferior and apical segments akinetic and basal inferolateral segment dyskinetic. no previous for comparison euvolemic Continue BB/ASA/Statin/Entresto/ranexa/torsemide Outpatient follow-up with Cardiology ? DMII continue Lantus SSI GERD continue PPI hypothyroidism continue synthroid ?full code ?heparin attending Dr. Cook Quality Stroke Does the patient have a stroke diagnosis?: No VTE Prior VTE?: No VTE Risk Level:: Medical - moderate - high VTE Device Contraindication: Treatment Not Indicated VTE Drug Contraindication: N/A - Med Ordered
--- NOTE | 2021-08-26 11:41 | PM.PNCARD ---
Subjective Subjective Date of Service: 08/26/21 Interval history: Feeling fine. He has no chest pain or shortness of breath. On IV antibiotics she echocardiography has not shown any obvious vegetations or any mass on the leads. Physical Exam Vital Signs: Last Vital Signs Temp 98.8 F 08/26/21 07:36 Pulse 61 08/26/21 07:36 Resp 18 08/26/21 07:36 BP 164/80 H 08/26/21 07:36 Pulse Ox 91 L 08/26/21 07:36 BMI result Body Mass Index 36.3 GENERAL APPEARANCE: In no acute distress. NECK: No jugular venous distention. SKIN: no suspicious lesions, warm and dry. HEART: no murmurs, regular rate and rhythm. LUNGS: CTABL. ABDOMEN: soft, nontender. EXTREMITIES: 1+ edema. PERIPHERAL PULSES: equal. NEUROLOGIC: No gross deficits, AAO X 3 Objective Labs and Meds Result diagrams: 08/25/21 04:56 08/26/21 07:10 Lab results: Laboratory Results - last 24 hr 08/25/21 08/25/21 08/25/21 11:48 16:20 19:25 Creatinine Estim Creat Clear Calc Estimated GFR POC Glucose 168 H 142 H 147 H 08/26/21 08/26/21 07:10 07:35 Creatinine 0.91 Estim Creat Clear Calc 104.5 Estimated GFR > 60 POC Glucose 111 Progress Note: A&P Assessment and plan (1) MRSA bacteremia: Status: Acute Assessment and Plan: 71-year-old gentleman presenting for MRSA bacteremia. He has background history of cardiomyopathy and ventricular tachycardia for which he had an ICD. We were asked to assess him for device related bacteremia. His bacteremia is clearing at this stage and his cultures are negative times 48 hour. His echocardiography has not shown any obvious vegetation on the valves or ICD lead. I think we continue antibiotics and treat him like right-sided endocarditis at this point. Id can help with the duration of antibiotics. Post completion of antibiotics he should have repeat blood cultures. I think currently GORDY is not required because it will not management consultant. Blood pressure is high please add amlodipine 2.5 mg once a day. Fall Risk Details Current Medications: Current Medications Acetaminophen (Acetaminophen 325 Mg Tablet) 650 mg PO Q6H PRN PRN Reason: Pain, Mild (Pain Scale 1-3) Last Admin: 08/26/21 08:10 Dose: 650 mg Documented by: Aspirin (Aspirin 81 Mg Tab.Chew) 81 mg PO DAILY [facility] Last Admin: 08/26/21 08:10 Dose: 81 mg Documented by: Atorvastatin Calcium (Atorvastatin Calcium 80 Mg Tablet) 80 mg PO DAILY [facility] Last Admin: 08/26/21 08:11 Dose: 80 mg Documented by: Bisacodyl (Bisacodyl 5 Mg Tablet.Dr) 10 mg PO BEDTIME PRN PRN Reason: Constipation Last Admin: 08/22/21 23:48 Dose: 10 mg Documented by: Cyclobenzaprine HCl (Cyclobenzaprine Hcl 5 Mg Tablet) 5 mg PO BID [facility] Last Admin: 08/26/21 08:11 Dose: 5 mg Documented by: Dextrose (Dextrose 50 % 25 Gm/50 Ml Syringe) 25 gm IVPUSH Q15M PRN; Protocol PRN Reason: per Hypoglycemia Standing Ord. Docusate Sodium (Docusate Sodium 100 Mg Capsule) 100 mg PO DAILY [facility] Last Admin: 08/26/21 08:11 Dose: 100 mg Documented by: Glucose (Glucose Gel 15 Gm Gel..Gram.) 15 gm PO Q15M PRN; Protocol PRN Reason: per Hypoglycemia Standing Ord. Heparin Sodium (Porcine) (Heparin Sodium,Porcine 5,000 Unit/Ml Vial) 5,000 unit SUBCUT Q12H [facility] Last Admin: 08/26/21 08:11 Dose: 5,000 unit Documented by: Hydromorphone HCl (Hydromorphone Hcl 1 Mg/Ml Syringe) 1 mg IVPUSH Q4H PRN; Protocol PRN Reason: Pain, Moderate (Pain Scale 4-6 Vancomycin HCl 2,000 mg/ (Sodium Chloride) 540 mls @ 270 mls/hr IV Q24H [facility] Last Infusion: 08/26/21 03:13 Dose: Infused Documented by: Insulin Glargine (Insulin Glargine,Hum.Rec.Anlog 100 Unit/Ml 10 Ml Vial) 34 unit SUBCUT BEDTIME [facility] Last Admin: 08/25/21 21:02 Dose: 34 unit Documented by: Insulin Human Lispro (Insulin Lispro 100 Unit/Ml 3 Ml Vial) 0 unit SUBCUT QIDACHS [facility]; Protocol Last Admin: 08/26/21 08:54 Dose: Not Given Documented by: Levothyroxine Sodium (Levothyroxine Sodium 150 Mcg Tablet) 150 mcg PO DAILY@0600 [facility] Last Admin: 08/26/21 07:14 Dose: 150 mcg Documented by: Lidocaine (Lidocaine 4 % Patch Adh..Patch) 1 patch TRANSDERMA DAILY [facility]; Protocol Last Admin: 08/26/21 08:10 Dose: 1 patch Documented by: Meclizine HCl (Meclizine Hcl 12.5 Mg Tablet) 12.5 mg PO BID [facility] Last Admin: 08/26/21 08:10 Dose: 12.5 mg Documented by: Metoprolol Succinate (Metoprolol Succinate Er 50 Mg Tab.Er.24h) 50 mg PO DAILY [facility]; Protocol Last Admin: 08/26/21 08:10 Dose: 50 mg Documented by: Mexiletine HCl (Mexiletine Hcl 150 Mg Capsule) 150 mg PO Q8H [facility] Last Admin: 08/26/21 07:14 Dose: 150 mg Documented by: Omeprazole (Omeprazole 20 Mg Capsule.Dr) 20 mg PO DAILY@0630 [facility] Last Admin: 08/26/21 07:14 Dose: 20 mg Documented by: Ondansetron HCl (Ondansetron Hcl 4 Mg/2 Ml Vial) 4 mg IVPUSH Q8H PRN PRN Reason: Nausea and Vomiting Oxycodone HCl (Oxycodone Hcl Immed Release 5 Mg Tablet) 5 mg PO Q4H PRN PRN Reason: Pain, Mild (Pain Scale 1-3) Last Admin: 08/26/21 02:58 Dose: 5 mg Documented by: Pharmacy Consult (Consult Rx Perform Med Rec) 1 each MISCELLANE ONCE PRN PRN Reason: Consult order Pharmacy Consult (Consult Rx Vancomycin Dosing) 1 each MISCELLANE DAILY PRN PRN Reason: Consult order Pharmacy Consult (Consult Rx Vancomycin Dosing) 1 each MISCELLANE DAILY PRN PRN Reason: Consult order Propranolol HCl (Propranolol Hcl La 60 Mg Cap.Sa.24h) 120 mg PO DAILY [facility]; Protocol Last Admin: 08/26/21 08:11 Dose: 120 mg Documented by: Ranolazine (Ranolazine 500 Mg Tab.Er.12h) 500 mg PO BID [facility] Last Admin: 08/26/21 08:10 Dose: 500 mg Documented by: Sacubitril/Valsartan (Sacubitril/Valsartan 1 Tab Tablet) 1 tab PO BID [facility]; Protocol Last Admin: 08/26/21 08:11 Dose: 1 tab Documented by: Torsemide (Torsemide 20 Mg Tablet) 40 mg PO TIDWM [facility]; Protocol Last Admin: 08/21/21 08:56 Dose: 40 mg Documented by: Time Spent With Patient Time: Total time spent is greater than 50% in coordination of care (as documented) at patient's floor/unit and/or counseling patient: Time with patient: 15 - 24 minutes Progress Note: Quality Stroke Does the patient have a stroke diagnosis?: No Procedures Date of Service Date of Service: 08/26/21
[2021-08-26 12:08] LABS: Glucose, Whole Blood 163 mg/dL (60-115)
[2021-08-26] MEDS: HYDROmorphone HCl 1 MG/ML SYRINGE IVPUSH ×3 (12:26→21:08)
[2021-08-26] MEDS: Insulin Lispro 100 UNIT/ML 3 ML VIAL SUBCUT ×2 (12:26→17:08)
[2021-08-26 17:20] LABS: Glucose, Whole Blood 159 mg/dL (60-115)
[2021-08-26 20:26] LABS: Glucose, Whole Blood 123 mg/dL (60-115)
[2021-08-26] MEDS: Insulin Glargine,Hum.rec.anlog 100 UNIT/ML 10 ML VIAL 34 UNIT SUBCUT (21:07)
[2021-08-26 21:54] LABS: Vancomycin Random 9.8 mcg/mL (15-20)
--- NOTE | 2021-08-26 22:11 | HE.PHANOTE ---
Increased dose to 1250 mg q12, level tomorrow after two doses. may need to increase to 1500 mg q12, watching cr
[2021-08-26] MEDS: vancomycin HCL 1,250 MG in 0.9 % Sodium Chloride 250 ML 166.67 MG IV (22:21)
[2021-08-27 00:11] VITALS: RESP 18
[2021-08-27] MEDS: HYDROmorphone HCl 1 MG/ML SYRINGE IVPUSH ×6 (00:11→20:48)
[2021-08-27] MEDS: oxyCODONE HCl Immed Release 5 MG TABLET PO ×3 (00:12→08:50)
[2021-08-27 03:12] VITALS: BP 141/70; PULSE 60; RESP 20; TEMP 36.7; O2SAT 90
[2021-08-27] MEDS: Omeprazole 20 MG CAPSULE.DR PO (05:15)
[2021-08-27] MEDS: Levothyroxine Sodium 150 MCG TABLET PO (05:15)
[2021-08-27 06:29] LABS: Creatinine Clr Calc Pharmacy 110.6; Estimated Glomerular Filt Rate > 60
[2021-08-27 07:48] VITALS: BP 159/70; PULSE 60; RESP 18; TEMP 36.4; O2SAT 96
[2021-08-27 08:20] LABS: Glucose, Whole Blood 38 mg/dL (60-115)
[2021-08-27 08:20] LABS: Glucose, Whole Blood 91 mg/dL (60-115)
[2021-08-27] MEDS: Acetaminophen 325 MG TABLET 650 MG PO ×2 (08:49→16:34)
[2021-08-27] MEDS: Heparin Sodium,Porcine 5,000 UNIT/ML VIAL 5000 UNIT SUBCUT ×2 (08:49→21:00)
[2021-08-27] MEDS: Sacubitril/Valsartan 24/26 1 TAB TABLET PO ×2 (08:50→11:46)
[2021-08-27] MEDS: Meclizine HCl 12.5 MG TABLET PO ×2 (08:50→20:46)
[2021-08-27] MEDS: Cyclobenzaprine HCl 5 MG TABLET PO ×2 (08:50→20:45)
[2021-08-27] MEDS: Propranolol HCL LA 60 MG CAP.SA.24H 120 MG PO (08:50)
[2021-08-27] MEDS: Atorvastatin Calcium 80 MG TABLET PO (08:50)
[2021-08-27] MEDS: Aspirin 81 MG TAB.CHEW PO (08:50)
[2021-08-27] MEDS: Docusate Sodium 100 MG CAPSULE PO (08:50)
[2021-08-27] MEDS: Ranolazine 500 MG TAB.ER.12H PO ×2 (08:50→20:47)
[2021-08-27] MEDS: Metoprolol Succinate ER 50 MG TAB.ER.24H PO (08:50)
[2021-08-27] MEDS: vancomycin HCL 1,250 MG in 0.9 % Sodium Chloride 250 ML 166.67 MG IV ×2 (08:51→21:01)
--- NOTE | 2021-08-27 11:15 | PM.PNCARD ---
Subjective Subjective Date of Service: 08/27/21 Interval history: Blood cultures are negative. Feeling good. Physical Exam Vital Signs: Last Vital Signs Temp 97.6 F 08/27/21 07:48 Pulse 60 08/27/21 07:48 Resp 18 08/27/21 07:48 BP 159/70 H 08/27/21 07:48 Pulse Ox 96 08/27/21 07:48 BMI result Body Mass Index 36.3 GENERAL APPEARANCE:? In no acute distress. NECK: No jugular venous distention. SKIN: no suspicious lesions, warm and dry. HEART: no murmurs, regular rate and rhythm. LUNGS:? CTABL. ABDOMEN: soft, nontender. EXTREMITIES:? 1+ edema. PERIPHERAL PULSES: equal. NEUROLOGIC: No gross deficits, AAO X 3 Objective Labs and Meds Result diagrams: 08/25/21 04:56 08/27/21 05:49 Lab results: Laboratory Results - last 24 hr 08/26/21 08/26/21 08/26/21 12:02 16:56 20:18 Creatinine Estim Creat Clear Calc Estimated GFR POC Glucose 163 H 159 H 123 H Random Vancomycin 08/26/21 08/27/21 08/27/21 21:19 05:49 07:45 Creatinine 0.86 Estim Creat Clear Calc 110.6 Estimated GFR > 60 POC Glucose 38 L* Random Vancomycin 9.8 L 08/27/21 08:02 Creatinine Estim Creat Clear Calc Estimated GFR POC Glucose 91 Random Vancomycin Imaging Radiologist's impression: Impressions Chest X-Ray 08/27/21 09:05 IMPRESSION: No evidence for acute disease in the chest. Progress Note: A&P Assessment and plan (1) Chronic systolic heart failure: Status: Acute (2) MRSA bacteremia: Status: Acute Assessment and Plan: Pleasant 71-year-old gentleman with previous chronic systolic heart failure and ventricular tachycardia for which he had ICD placement. Presenting for weakness and MRSA bacteremia. His bacteremia has cleared at this point. Transthoracic echocardiogram did not show any signs of agitation or ICD lead involvement. I think he does not need GORDY currently. After completion of antibiotics he should have repeat blood cultures. He should follow with Dr. Suarez after discharge. Thank you for allowing me to participate in the care of your patient. Please feel free to contact me if you have any questions. Fall Risk Details Current Medications: Current Medications Acetaminophen (Acetaminophen 325 Mg Tablet) 650 mg PO Q6H PRN PRN Reason: Pain, Mild (Pain Scale 1-3) Last Admin: 08/27/21 08:49 Dose: 650 mg Documented by: Aspirin (Aspirin 81 Mg Tab.Chew) 81 mg PO DAILY [facility] Last Admin: 08/27/21 08:50 Dose: 81 mg Documented by: Atorvastatin Calcium (Atorvastatin Calcium 80 Mg Tablet) 80 mg PO DAILY [facility] Last Admin: 08/27/21 08:50 Dose: 80 mg Documented by: Bisacodyl (Bisacodyl 5 Mg Tablet.Dr) 10 mg PO BEDTIME PRN PRN Reason: Constipation Last Admin: 08/22/21 23:48 Dose: 10 mg Documented by: Cyclobenzaprine HCl (Cyclobenzaprine Hcl 5 Mg Tablet) 5 mg PO BID [facility] Last Admin: 08/27/21 08:50 Dose: 5 mg Documented by: Dextrose (Dextrose 50 % 25 Gm/50 Ml Syringe) 25 gm IVPUSH Q15M PRN; Protocol PRN Reason: per Hypoglycemia Standing Ord. Docusate Sodium (Docusate Sodium 100 Mg Capsule) 100 mg PO DAILY [facility] Last Admin: 08/27/21 08:50 Dose: 100 mg Documented by: Glucose (Glucose Gel 15 Gm Gel..Gram.) 15 gm PO Q15M PRN; Protocol PRN Reason: per Hypoglycemia Standing Ord. Heparin Sodium (Porcine) (Heparin Sodium,Porcine 5,000 Unit/Ml Vial) 5,000 unit SUBCUT Q12H [facility] Last Admin: 08/27/21 08:49 Dose: 5,000 unit Documented by: Hydromorphone HCl (Hydromorphone Hcl 1 Mg/Ml Syringe) 1 mg IVPUSH Q4H PRN; Protocol PRN Reason: Pain, Moderate (Pain Scale 4-6 Last Admin: 08/27/21 08:49 Dose: 1 mg Documented by: Vancomycin HCl 1,250 mg/ (Sodium Chloride) 250 mls @ 166.667 mls/hr IV Q12H [facility] Last Infusion: 08/27/21 11:06 Dose: Infused Documented by: Insulin Glargine (Insulin Glargine,Hum.Rec.Anlog 100 Unit/Ml 10 Ml Vial) 34 unit SUBCUT BEDTIME [facility] Last Admin: 08/26/21 21:07 Dose: 34 unit Documented by: Insulin Human Lispro (Insulin Lispro 100 Unit/Ml 3 Ml Vial) 0 unit SUBCUT QIDACHS [facility]; Protocol Last Admin: 08/27/21 08:39 Dose: Not Given Documented by: Levothyroxine Sodium (Levothyroxine Sodium 150 Mcg Tablet) 150 mcg PO DAILY@0600 [facility] Last Admin: 08/27/21 05:15 Dose: 150 mcg Documented by: Lidocaine (Lidocaine 4 % Patch Adh..Patch) 1 patch TRANSDERMA DAILY [facility]; Protocol Last Admin: 08/27/21 11:06 Dose: Not Given Documented by: Meclizine HCl (Meclizine Hcl 12.5 Mg Tablet) 12.5 mg PO BID [facility] Last Admin: 08/27/21 08:50 Dose: 12.5 mg Documented by: Metoprolol Succinate (Metoprolol Succinate Er 50 Mg Tab.Er.24h) 50 mg PO DAILY [facility]; Protocol Last Admin: 08/27/21 08:50 Dose: 50 mg Documented by: Mexiletine HCl (Mexiletine Hcl 150 Mg Capsule) 150 mg PO Q8H [facility] Last Admin: 08/27/21 05:15 Dose: 150 mg Documented by: Omeprazole (Omeprazole 20 Mg Capsule.Dr) 20 mg PO DAILY@0630 [facility] Last Admin: 08/27/21 05:15 Dose: 20 mg Documented by: Ondansetron HCl (Ondansetron Hcl 4 Mg/2 Ml Vial) 4 mg IVPUSH Q8H PRN PRN Reason: Nausea and Vomiting Oxycodone HCl (Oxycodone Hcl Immed Release 5 Mg Tablet) 5 mg PO Q4H PRN PRN Reason: Pain, Mild (Pain Scale 1-3) Last Admin: 08/27/21 08:50 Dose: 5 mg Documented by: Pharmacy Consult (Consult Rx Perform Med Rec) 1 each MISCELLANE ONCE PRN PRN Reason: Consult order Pharmacy Consult (Consult Rx Vancomycin Dosing) 1 each MISCELLANE DAILY PRN PRN Reason: Consult order Pharmacy Consult (Consult Rx Vancomycin Dosing) 1 each MISCELLANE DAILY PRN PRN Reason: Consult order Propranolol HCl (Propranolol Hcl La 60 Mg Cap.Sa.24h) 120 mg PO DAILY [facility]; Protocol Last Admin: 08/27/21 08:50 Dose: 120 mg Documented by: Ranolazine (Ranolazine 500 Mg Tab.Er.12h) 500 mg PO BID [facility] Last Admin: 08/27/21 08:50 Dose: 500 mg Documented by: Sacubitril/Valsartan (Sacubitril/Valsartan 49/51 1 Tab Tablet) 1 tab PO BID [facility]; Protocol Torsemide (Torsemide 20 Mg Tablet) 40 mg PO TIDWM [facility]; Protocol Last Admin: 08/21/21 08:56 Dose: 40 mg Documented by: Time Spent With Patient Time: Total time spent is greater than 50% in coordination of care (as documented) at patient's floor/unit and/or counseling patient: Time with patient: 15 - 24 minutes Progress Note: Quality Stroke Does the patient have a stroke diagnosis?: No Procedures Date of Service Date of Service: 08/27/21
--- NOTE | 2021-08-27 11:50 | HO.PM.IMPN ---
Subjective Subjective Date of Service: 08/27/21 Review of Systems Follow-up for MRSA bacteremia, back pain Back pain improving somewhat No fever, no shortness of breath no cough, no chest pain Physical Exam Vital Signs: Vital Signs: Last Vital Signs Temp 97.6 F 08/27/21 07:48 Pulse 60 08/27/21 07:48 Resp 18 08/27/21 07:48 BP 159/70 H 08/27/21 07:48 Pulse Ox 96 08/27/21 07:48 BMI result Body Mass Index 36.3 Appearing in no acute distress lung sounds are clear to auscultation heart regular rate rhythm, clear S1, S2 positive bowel sounds, abdomen is soft, nontender neuro patient is alert x3, no focal deficits Objective Data Active Medications Acetaminophen (Acetaminophen 325 Mg Tablet) 650 mg PO Q6H PRN PRN Reason: Pain, Mild (Pain Scale 1-3) Last Admin: 08/27/21 08:49 Dose: 650 mg Documented by: ALAN Aspirin (Aspirin 81 Mg Tab.Chew) 81 mg PO DAILY [facility] Last Admin: 08/27/21 08:50 Dose: 81 mg Documented by: ALAN Atorvastatin Calcium (Atorvastatin Calcium 80 Mg Tablet) 80 mg PO DAILY [facility] Last Admin: 08/27/21 08:50 Dose: 80 mg Documented by: ALAN Bisacodyl (Bisacodyl 5 Mg Tablet.) 10 mg PO BEDTIME PRN PRN Reason: Constipation Last Admin: 08/22/21 23:48 Dose: 10 mg Documented by: KALI Cyclobenzaprine HCl (Cyclobenzaprine Hcl 5 Mg Tablet) 5 mg PO BID [facility] Last Admin: 08/27/21 08:50 Dose: 5 mg Documented by: ALAN Dextrose (Dextrose 50 % 25 Gm/50 Ml Syringe) 25 gm IVPUSH Q15M PRN; Protocol PRN Reason: per Hypoglycemia Standing Ord. Docusate Sodium (Docusate Sodium 100 Mg Capsule) 100 mg PO DAILY [facility] Last Admin: 08/27/21 08:50 Dose: 100 mg Documented by: ALAN Glucose (Glucose Gel 15 Gm Gel..Gram.) 15 gm PO Q15M PRN; Protocol PRN Reason: per Hypoglycemia Standing Ord. Heparin Sodium (Porcine) (Heparin Sodium,Porcine 5,000 Unit/Ml Vial) 5,000 unit SUBCUT Q12H [facility] Last Admin: 08/27/21 08:49 Dose: 5,000 unit Documented by: ALAN Hydromorphone HCl (Hydromorphone Hcl 1 Mg/Ml Syringe) 1 mg IVPUSH Q4H PRN; Protocol PRN Reason: Pain, Moderate (Pain Scale 4-6 Last Admin: 08/27/21 08:49 Dose: 1 mg Documented by: ALAN Vancomycin HCl 1,250 mg/ (Sodium Chloride) 250 mls @ 166.667 mls/hr IV Q12H [facility] Last Infusion: 08/27/21 11:06 Dose: 0 mls/hr Documented by: ALAN Insulin Glargine (Insulin Glargine,Hum.Rec.Anlog 100 Unit/Ml 10 Ml Vial) 34 unit SUBCUT BEDTIME [facility] Last Admin: 08/26/21 21:07 Dose: 34 unit Documented by: CARLY Insulin Human Lispro (Insulin Lispro 100 Unit/Ml 3 Ml Vial) 0 unit SUBCUT QIDACHS [facility]; Protocol Last Admin: 08/27/21 08:39 Dose: Not Given Documented by: ALAN Non-Admin Reason: No Insulin Coverage Levothyroxine Sodium (Levothyroxine Sodium 150 Mcg Tablet) 150 mcg PO DAILY@0600 [facility] Last Admin: 08/27/21 05:15 Dose: 150 mcg Documented by: CARLY Lidocaine (Lidocaine 4 % Patch Adh..Patch) 1 patch TRANSDERMA DAILY [facility]; Protocol Last Admin: 08/27/21 11:06 Dose: Not Given Documented by: ALAN Non-Admin Reason: Patient Refused Meclizine HCl (Meclizine Hcl 12.5 Mg Tablet) 12.5 mg PO BID [facility] Last Admin: 08/27/21 08:50 Dose: 12.5 mg Documented by: ALAN Metoprolol Succinate (Metoprolol Succinate Er 50 Mg Tab.Er.24h) 50 mg PO DAILY [facility]; Protocol Last Admin: 08/27/21 08:50 Dose: 50 mg Documented by: ALAN Mexiletine HCl (Mexiletine Hcl 150 Mg Capsule) 150 mg PO Q8H [facility] Last Admin: 08/27/21 05:15 Dose: 150 mg Documented by: CARLY Omeprazole (Omeprazole 20 Mg Capsule.Dr) 20 mg PO DAILY@0630 [facility] Last Admin: 08/27/21 05:15 Dose: 20 mg Documented by: CARLY Ondansetron HCl (Ondansetron Hcl 4 Mg/2 Ml Vial) 4 mg IVPUSH Q8H PRN PRN Reason: Nausea and Vomiting Oxycodone HCl (Oxycodone Hcl Immed Release 5 Mg Tablet) 5 mg PO Q4H PRN PRN Reason: Pain, Mild (Pain Scale 1-3) Last Admin: 08/27/21 08:50 Dose: 5 mg Documented by: ALAN Pharmacy Consult (Consult Rx Perform Med Rec) 1 each MISCELLANE ONCE PRN PRN Reason: Consult order Pharmacy Consult (Consult Rx Vancomycin Dosing) 1 each MISCELLANE DAILY PRN PRN Reason: Consult order Pharmacy Consult (Consult Rx Vancomycin Dosing) 1 each MISCELLANE DAILY PRN PRN Reason: Consult order Propranolol HCl (Propranolol Hcl La 60 Mg Cap.Sa.24h) 120 mg PO DAILY [facility]; Protocol Last Admin: 08/27/21 08:50 Dose: 120 mg Documented by: ALAN Ranolazine (Ranolazine 500 Mg Tab.Er.12h) 500 mg PO BID [facility] Last Admin: 08/27/21 08:50 Dose: 500 mg Documented by: ALAN Sacubitril/Valsartan (Sacubitril/Valsartan 49/51 1 Tab Tablet) 1 tab PO BID [facility]; Protocol Torsemide (Torsemide 20 Mg Tablet) 40 mg PO TIDWM [facility]; Protocol Last Admin: 08/21/21 08:56 Dose: 40 mg Documented by: GEOVANNY Labs CBC & Chem 7: 08/25/21 04:56 08/27/21 05:49 Labs: Laboratory Results - last 24 hr 08/26/21 08/26/21 08/26/21 12:02 16:56 20:18 Estim Creat Clear Calc Estimated GFR POC Glucose 163 H 159 H 123 H Random Vancomycin 08/26/21 08/27/21 08/27/21 21:19 05:49 07:45 Estim Creat Clear Calc 110.6 Estimated GFR > 60 POC Glucose 38 L* Random Vancomycin 9.8 L 08/27/21 08:02 Estim Creat Clear Calc Estimated GFR POC Glucose 91 Random Vancomycin Microbiology Microbiology Results: Microbiology 08/24/21 11:28 Blood Culture - Preliminary Blood - Venous No growth after 48 hours. 08/24/21 11:28 Blood Culture - Preliminary Blood - Venous No growth after 48 hours. Assessment and Plan (1) MRSA bacteremia: Status: Acute Assessment and Plan: this is a 71-year-old male with past medical history of diabetes, hypothyroidism, CHF who presents to the hospital with?complaints of weakness found to have fever of unknown origin MRSA bacteremia BCx from 08/20 22 positive for MRSA; BCx from 08/22 1 + ESR 27, CRP 22 ECHO with no evidence of endocarditis Left hip, Right knee prosthesis, but no evidence of infection on ct abdomen/pelvis from 08/20, xray right knee continue IV vanoc, will d/c zosyn ID following Will need Midline Line for 4 weeks abx. Ordered for Saturday back pain CT lumbar spine showing multilevel degenerative changes, chronic b/l L5 pars defects. no infectious process seen Pain present for years, no radiation, no bowel incontinence Lidocaine patches and pain management CAD/Chronic HFrEF echo showing EF 30-35% with ineroseptal wall, basal inferior, mid inferior and apical segments akinetic and basal inferolateral segment dyskinetic. no previous for comparison euvolemic Continue BB/ASA/Statin/Entresto/ranexa/torsemide Outpatient follow-up with Cardiology ? DMII continue Lantus SSI GERD continue PPI hypothyroidism continue synthroid ?full code ?heparin attending Dr. Abdullahi Quality Stroke Does the patient have a stroke diagnosis?: No VTE Prior VTE?: No VTE Risk Level:: Medical - moderate - high VTE Device Contraindication: Treatment Not Indicated VTE Drug Contraindication: N/A - Med Ordered
[2021-08-27 11:54] VITALS: BP 144/63; PULSE 58; RESP 18; TEMP 36.7; O2SAT 90
[2021-08-27 12:07] LABS: Glucose, Whole Blood 156 mg/dL (60-115)
[2021-08-27] MEDS: Insulin Lispro 100 UNIT/ML 3 ML VIAL SUBCUT ×2 (12:15→20:46)
[2021-08-27 16:00] VITALS: BP 159/72; PULSE 87; RESP 22; TEMP 36.9; O2SAT 90
[2021-08-27 16:30] LABS: Glucose, Whole Blood 130 mg/dL (60-115)
[2021-08-27 19:27] VITALS: BP 140/51; PULSE 57; RESP 18; TEMP 36.9; O2SAT 91
[2021-08-27 19:51] LABS: Glucose, Whole Blood 189 mg/dL (60-115)
[2021-08-27 20:35] LABS: Vancomycin Random 15.5 mcg/mL (15-20)
[2021-08-27] MEDS: Insulin Glargine,Hum.rec.anlog 100 UNIT/ML 10 ML VIAL 34 UNIT SUBCUT (20:45)
[2021-08-27] MEDS: Sacubitril/Valsartan 49/51 1 TAB TABLET PO (20:46)
--- NOTE | 2021-08-27 21:01 | HE.PHANOTE ---
Pt level increase from 9.8 to 15.5, put in another level for 08/28@1999. potentially decrease to 1gm q12
[2021-08-28] VITALS (8 sets, daily range): BP systolic 135–169; BP diastolic 63–77; PULSE 52–60; RESP 15–20; TEMP 36.5–37.1; O2SAT 90–93
[2021-08-28] MEDS: HYDROmorphone HCl 1 MG/ML SYRINGE IVPUSH (05:08)
[2021-08-28] MEDS: Levothyroxine Sodium 150 MCG TABLET PO (05:44)
[2021-08-28] MEDS: Omeprazole 20 MG CAPSULE.DR PO (05:44)
[2021-08-28 06:35] LABS: Creatinine Clr Calc Pharmacy 117.4; Estimated Glomerular Filt Rate > 60
[2021-08-28 07:53] LABS: Glucose, Whole Blood 112 mg/dL (60-115)
[2021-08-28] MEDS: Cyclobenzaprine HCl 5 MG TABLET PO ×2 (08:32→21:46)
[2021-08-28] MEDS: Ranolazine 500 MG TAB.ER.12H PO ×2 (08:32→21:46)
[2021-08-28] MEDS: Atorvastatin Calcium 80 MG TABLET PO (08:32)
[2021-08-28] MEDS: oxyCODONE HCl Immed Release 5 MG TABLET 10 MG PO ×3 (08:32→18:53)
[2021-08-28] MEDS: Sacubitril/Valsartan 49/51 1 TAB TABLET PO ×2 (08:32→21:46)
[2021-08-28] MEDS: Acetaminophen 325 MG TABLET 650 MG PO ×3 (08:32→18:52)
[2021-08-28] MEDS: Meclizine HCl 12.5 MG TABLET PO ×2 (08:32→21:46)
[2021-08-28] MEDS: Propranolol HCL LA 60 MG CAP.SA.24H 120 MG PO (08:33)
[2021-08-28] MEDS: Docusate Sodium 100 MG CAPSULE PO (08:33)
[2021-08-28] MEDS: Metoprolol Succinate ER 50 MG TAB.ER.24H PO (08:33)
[2021-08-28] MEDS: Heparin Sodium,Porcine 5,000 UNIT/ML VIAL 5000 UNIT SUBCUT ×2 (08:33→21:47)
[2021-08-28] MEDS: Aspirin 81 MG TAB.CHEW PO (08:33)
--- NOTE | 2021-08-28 09:51 | MHC.CM.PN ---
PATIENT WILL NEED 4 WEEKS OF IV VANCO. PLAN IS MIDLINE TODAY REF[facility] CONTINUING TO FOLLOW
[2021-08-28] MEDS: vancomycin HCL 1,250 MG in 0.9 % Sodium Chloride 250 ML 166.67 MG IV ×2 (10:58→21:47)
--- NOTE | 2021-08-28 12:00 | HO.PM.IMPN ---
Subjective Subjective Date of Service: 08/28/21 Review of Systems Follow up back pain, bacteremia Still with back good appetite Physical Exam Vital Signs: Vital Signs: Last Vital Signs Temp 98.8 F 08/28/21 07:47 Pulse 55 08/28/21 07:47 Resp 20 08/28/21 07:47 BP 157/72 H 08/28/21 07:47 Pulse Ox 90 L 08/28/21 07:47 BMI result Body Mass Index 36.3 Appearing in no acute distress lung sounds are clear to auscultation heart regular rate rhythm, clear S1, S2 positive bowel sounds, abdomen is soft, nontender neuro patient is alert x3, no focal deficits Objective Data Active Medications Acetaminophen (Acetaminophen 325 Mg Tablet) 650 mg PO Q6H PRN PRN Reason: Pain, Mild (Pain Scale 1-3) Last Admin: 08/28/21 08:32 Dose: 650 mg Documented by: CHRISTOPHER Aspirin (Aspirin 81 Mg Tab.Chew) 81 mg PO DAILY [facility] Last Admin: 08/28/21 08:33 Dose: 81 mg Documented by: CHRISTOPHER Atorvastatin Calcium (Atorvastatin Calcium 80 Mg Tablet) 80 mg PO DAILY [facility] Last Admin: 08/28/21 08:32 Dose: 80 mg Documented by: CHRISTOPHER Bisacodyl (Bisacodyl 5 Mg Tablet.Dr) 10 mg PO BEDTIME PRN PRN Reason: Constipation Last Admin: 08/22/21 23:48 Dose: 10 mg Documented by: KALI Cyclobenzaprine HCl (Cyclobenzaprine Hcl 5 Mg Tablet) 5 mg PO BID [facility] Last Admin: 08/28/21 08:32 Dose: 5 mg Documented by: CHRISTOPHER Dextrose (Dextrose 50 % 25 Gm/50 Ml Syringe) 25 gm IVPUSH Q15M PRN; Protocol PRN Reason: per Hypoglycemia Standing Ord. Docusate Sodium (Docusate Sodium 100 Mg Capsule) 100 mg PO DAILY [facility] Last Admin: 08/28/21 08:33 Dose: 100 mg Documented by: CHRISTOPHER Glucose (Glucose Gel 15 Gm Gel..Gram.) 15 gm PO Q15M PRN; Protocol PRN Reason: per Hypoglycemia Standing Ord. Heparin Sodium (Porcine) (Heparin Sodium,Porcine 5,000 Unit/Ml Vial) 5,000 unit SUBCUT Q12H [facility] Last Admin: 08/28/21 08:33 Dose: 5,000 unit Documented by: CHRISTOPHER Vancomycin HCl 1,250 mg/ (Sodium Chloride) 250 mls @ 166.667 mls/hr IV Q12H [facility] Last Admin: 08/28/21 10:58 Dose: 166.67 mls/hr Documented by: KEERTHI Insulin Glargine (Insulin Glargine,Hum.Rec.Anlog 100 Unit/Ml 10 Ml Vial) 34 unit SUBCUT BEDTIME [facility] Last Admin: 08/27/21 20:45 Dose: 34 unit Documented by: LUDA Insulin Human Lispro (Insulin Lispro 100 Unit/Ml 3 Ml Vial) 0 unit SUBCUT QIDACHS [facility]; Protocol Last Admin: 08/28/21 08:08 Dose: Not Given Documented by: KEERTHI Non-Admin Reason: No Insulin Coverage Levothyroxine Sodium (Levothyroxine Sodium 150 Mcg Tablet) 150 mcg PO DAILY@0600 [facility] Last Admin: 08/28/21 05:44 Dose: 150 mcg Documented by: LUDA Lidocaine (Lidocaine 4 % Patch Adh..Patch) 1 patch TRANSDERMA DAILY [facility]; Protocol Last Admin: 08/28/21 08:32 Dose: Not Given Documented by: CHRISTOPHER Non-Admin Reason: Patient Refused Meclizine HCl (Meclizine Hcl 12.5 Mg Tablet) 12.5 mg PO BID [facility] Last Admin: 08/28/21 08:32 Dose: 12.5 mg Documented by: CHRISTOPHER Metoprolol Succinate (Metoprolol Succinate Er 50 Mg Tab.Er.24h) 50 mg PO DAILY [facility]; Protocol Last Admin: 08/28/21 08:33 Dose: 50 mg Documented by: CHRISTOPHER Mexiletine HCl (Mexiletine Hcl 150 Mg Capsule) 150 mg PO Q8H [facility] Last Admin: 08/28/21 05:44 Dose: 150 mg Documented by: LUDA Omeprazole (Omeprazole 20 Mg Capsule.Dr) 20 mg PO DAILY@0630 [facility] Last Admin: 08/28/21 05:44 Dose: 20 mg Documented by: LUDA Ondansetron HCl (Ondansetron Hcl 4 Mg/2 Ml Vial) 4 mg IVPUSH Q8H PRN PRN Reason: Nausea and Vomiting Oxycodone HCl (Oxycodone Hcl Immed Release 5 Mg Tablet) 10 mg PO Q4H PRN PRN Reason: Pain, Mild (Pain Scale 1-3) Last Admin: 08/28/21 08:32 Dose: 10 mg Documented by: CHRISTOPHER Pharmacy Consult (Consult Rx Perform Med Rec) 1 each MISCELLANE ONCE PRN PRN Reason: Consult order Pharmacy Consult (Consult Rx Vancomycin Dosing) 1 each MISCELLANE DAILY PRN PRN Reason: Consult order Propranolol HCl (Propranolol Hcl La 60 Mg Cap.Sa.24h) 120 mg PO DAILY [facility]; Protocol Last Admin: 08/28/21 08:33 Dose: 120 mg Documented by: CHRISTOPHER Ranolazine (Ranolazine 500 Mg Tab.Er.12h) 500 mg PO BID [facility] Last Admin: 08/28/21 08:32 Dose: 500 mg Documented by: CHRISTOPHER Sacubitril/Valsartan (Sacubitril/Valsartan 49/51 1 Tab Tablet) 1 tab PO BID [facility]; Protocol Last Admin: 08/28/21 08:32 Dose: 1 tab Documented by: CHRISTOPHER Torsemide (Torsemide 20 Mg Tablet) 40 mg PO TIDWM [facility]; Protocol Last Admin: 08/21/21 08:56 Dose: 40 mg Documented by: GEOVANNY Labs CBC & Chem 7: 08/25/21 04:56 08/28/21 05:50 Labs: Laboratory Results - last 24 hr 08/27/21 08/27/21 08/27/21 11:52 16:20 19:31 Estim Creat Clear Calc Estimated GFR POC Glucose 156 H 130 H 189 H Random Vancomycin 08/27/21 08/28/21 08/28/21 20:03 05:50 07:45 Estim Creat Clear Calc 117.4 Estimated GFR > 60 POC Glucose 112 Random Vancomycin 15.5 Microbiology Microbiology Results: Microbiology 08/24/21 11:28 Blood Culture - Preliminary Blood - Venous Prelim: GPC Gram Stain only 08/22/21 16:19 Blood Culture - Final Blood - Venous No growth after 5 days. Assessment and Plan (1) MRSA bacteremia: Status: Acute Assessment and Plan: this is a 71-year-old male with past medical history of diabetes, hypothyroidism, CHF who presents to the hospital with?complaints of weakness found to have fever of unknown origin MRSA bacteremia Blood cx from 08/24 showing GPC 1/, midline when final BCx from 08/20 2/2 positive for MRSA; BCx from 08/22 12 + ESR 27, CRP 22 ECHO with no evidence of endocarditis Left hip, Right knee prosthesis, but no evidence of infection on ct abdomen/pelvis from 08/20, xray right knee continue IV vanoc, will d/c zosyn ID following Will need Midline Line for [address] lumbar spine showing multilevel degenerative changes, chronic b/l L5 pars defects. no infectious process seen Pain present for years, no radiation, no bowel incontinence Lidocaine patches and pain management CAD/Chronic HFrEF echo showing EF 30-35% with ineroseptal wall, basal inferior, mid inferior and apical segments akinetic and basal inferolateral segment dyskinetic. no previous for comparison euvolemic Continue BB/ASA/Statin/Entresto/ranexa/torsemide Outpatient follow-up with Cardiology ? DMII continue Lantus SSI GERD continue PPI hypothyroidism continue synthroid ?full code ?heparin attending Dr. Cee Quality Stroke Does the patient have a stroke diagnosis?: No VTE Prior VTE?: No VTE Risk Level:: Medical - moderate - high VTE Device Contraindication: Treatment Not Indicated VTE Drug Contraindication: N/A - Med Ordered
--- NOTE | 2021-08-28 12:02 | MHC.CM.PN ---
[facility] WILLING TO OFFER. CHANGE OF PLAN FOR TODAY - NO MIDLINE PLACEMENT DUE TO CULTURES (+) WILL FOLLOW FOR POSSIBLE RE-CULTURE AND MIDLINE PLACEMENT.
[2021-08-28 12:06] LABS: Glucose, Whole Blood 121 mg/dL (60-115)
[2021-08-28 15:51] LABS: Glucose, Whole Blood 130 mg/dL (60-115)
[2021-08-28 20:47] LABS: Vancomycin Random 16.6 mcg/mL (15-20)
[2021-08-28 20:55] LABS: Glucose, Whole Blood 126 mg/dL (60-115)
[2021-08-28] MEDS: Insulin Glargine,Hum.rec.anlog 100 UNIT/ML 10 ML VIAL 34 UNIT SUBCUT (21:46)
[2021-08-29] MEDS: oxyCODONE HCl Immed Release 5 MG TABLET 10 MG PO ×5 (03:27→21:20)
[2021-08-29 03:45] VITALS: BP 153/84; PULSE 60; RESP 18; TEMP 36.6; O2SAT 92
[2021-08-29] MEDS: Omeprazole 20 MG CAPSULE.DR PO (06:02)
[2021-08-29] MEDS: Levothyroxine Sodium 150 MCG TABLET PO (06:02)
[2021-08-29 06:27] LABS: Creatinine Clr Calc Pharmacy 121.9; Estimated Glomerular Filt Rate > 60
[2021-08-29 07:06] VITALS: BP 170/79; PULSE 59; RESP 19; TEMP 36.6; O2SAT 93
[2021-08-29] MEDS: Metoprolol Succinate ER 50 MG TAB.ER.24H PO (07:24)
[2021-08-29] MEDS: Sacubitril/Valsartan 49/51 1 TAB TABLET PO ×2 (07:24→19:49)
[2021-08-29] MEDS: Docusate Sodium 100 MG CAPSULE PO (07:25)
[2021-08-29] MEDS: Ranolazine 500 MG TAB.ER.12H PO ×2 (07:25→19:49)
[2021-08-29] MEDS: Cyclobenzaprine HCl 5 MG TABLET PO ×2 (07:25→19:49)
[2021-08-29] MEDS: Meclizine HCl 12.5 MG TABLET PO ×2 (07:25→19:49)
[2021-08-29] MEDS: Atorvastatin Calcium 80 MG TABLET PO (07:25)
[2021-08-29] MEDS: Propranolol HCL LA 60 MG CAP.SA.24H 120 MG PO (07:25)
[2021-08-29] MEDS: Aspirin 81 MG TAB.CHEW PO (07:25)
[2021-08-29 07:35] LABS: Glucose, Whole Blood 87 mg/dL (60-115)
--- NOTE | 2021-08-29 09:46 | HO.PM.IMPN ---
Subjective Subjective Date of Service: 08/29/21 Review of Systems Follow up back pain, bacteremia Still with back good appetite Physical Exam Vital Signs: Vital Signs: Last Vital Signs Temp 97.8 F 08/29/21 07:06 Pulse 59 08/29/21 07:06 Resp 19 08/29/21 07:06 BP 170/79 H 08/29/21 07:06 Pulse Ox 93 08/29/21 07:06 BMI result Body Mass Index 36.3 Appearing in no acute distres lung sounds are clear to auscultation heart regular rate rhythm, clear S1, S2 positive bowel sounds, abdomen is soft, nontender neuro patient is alert x3, no focal deficits Objective Data Active Medications Acetaminophen (Acetaminophen 325 Mg Tablet) 650 mg PO Q6H PRN PRN Reason: Pain, Mild (Pain Scale 1-3) Last Admin: 08/28/21 18:52 Dose: 650 mg Documented by: KEERTHI Aspirin (Aspirin 81 Mg Tab.Chew) 81 mg PO DAILY [facility] Last Admin: 08/29/21 07:25 Dose: 81 mg Documented by: ANTIONETTE Atorvastatin Calcium (Atorvastatin Calcium 80 Mg Tablet) 80 mg PO DAILY [facility] Last Admin: 08/29/21 07:25 Dose: 80 mg Documented by: ANTIONETTE Bisacodyl (Bisacodyl 5 Mg Tablet.Dr) 10 mg PO BEDTIME PRN PRN Reason: Constipation Last Admin: 08/22/21 23:48 Dose: 10 mg Documented by: KALI Cyclobenzaprine HCl (Cyclobenzaprine Hcl 5 Mg Tablet) 5 mg PO BID [facility] Last Admin: 08/29/21 07:25 Dose: 5 mg Documented by: ANTIONETTE Dextrose (Dextrose 50 % 25 Gm/50 Ml Syringe) 25 gm IVPUSH Q15M PRN; Protocol PRN Reason: per Hypoglycemia Standing Ord. Docusate Sodium (Docusate Sodium 100 Mg Capsule) 100 mg PO DAILY [facility] Last Admin: 08/29/21 07:25 Dose: 100 mg Documented by: ANTIONETTE Glucose (Glucose Gel 15 Gm Gel..Gram.) 15 gm PO Q15M PRN; Protocol PRN Reason: per Hypoglycemia Standing Ord. Heparin Sodium (Porcine) (Heparin Sodium,Porcine 5,000 Unit/Ml Vial) 5,000 unit SUBCUT Q12H [facility] Last Admin: 08/28/21 21:47 Dose: 5,000 unit Documented by: LUDA Hydromorphone HCl (Hydromorphone Hcl 1 Mg/Ml Syringe) 1 mg IVPUSH Q4H PRN; Protocol PRN Reason: Pain, Severe (Pain Scale 7-10) Vancomycin HCl 1,250 mg/ (Sodium Chloride) 250 mls @ 166.667 mls/hr IV Q12H [facility] Last Infusion: 08/29/21 01:14 Dose: 0 mls/hr Documented by: LUDA Insulin Glargine (Insulin Glargine,Hum.Rec.Anlog 100 Unit/Ml 10 Ml Vial) 34 unit SUBCUT BEDTIME [facility] Last Admin: 08/28/21 21:46 Dose: 34 unit Documented by: LUDA Insulin Human Lispro (Insulin Lispro 100 Unit/Ml 3 Ml Vial) 0 unit SUBCUT QIDACHS [facility]; Protocol Last Admin: 08/29/21 07:32 Dose: Not Given Documented by: ANTIONETTE Non-Admin Reason: No Insulin Coverage Levothyroxine Sodium (Levothyroxine Sodium 150 Mcg Tablet) 150 mcg PO DAILY@0600 [facility] Last Admin: 08/29/21 06:02 Dose: 150 mcg Documented by: LUDA Lidocaine (Lidocaine 4 % Patch Adh..Patch) 1 patch TRANSDERMA DAILY [facility]; Protocol Last Admin: 08/29/21 07:26 Dose: Not Given Documented by: ANTIONETTE Non-Admin Reason: Patient Refused Meclizine HCl (Meclizine Hcl 12.5 Mg Tablet) 12.5 mg PO BID [facility] Last Admin: 08/29/21 07:25 Dose: 12.5 mg Documented by: ANTIONETTE Metoprolol Succinate (Metoprolol Succinate Er 50 Mg Tab.Er.24h) 50 mg PO DAILY [facility]; Protocol Last Admin: 08/29/21 07:24 Dose: 50 mg Documented by: ANTIONETTE Mexiletine HCl (Mexiletine Hcl 150 Mg Capsule) 150 mg PO Q8H [facility] Last Admin: 08/29/21 06:02 Dose: 150 mg Documented by: LUDA Omeprazole (Omeprazole 20 Mg Capsule.Dr) 20 mg PO DAILY@0630 [facility] Last Admin: 08/29/21 06:02 Dose: 20 mg Documented by: LUDA Ondansetron HCl (Ondansetron Hcl 4 Mg/2 Ml Vial) 4 mg IVPUSH Q8H PRN PRN Reason: Nausea and Vomiting Oxycodone HCl (Oxycodone Hcl Immed Release 5 Mg Tablet) 10 mg PO Q4H PRN PRN Reason: Pain, Mild (Pain Scale 1-3) Last Admin: 08/29/21 07:25 Dose: 10 mg Documented by: ANTIONETTE Pharmacy Consult (Consult Rx Perform Med Rec) 1 each MISCELLANE ONCE PRN PRN Reason: Consult order Pharmacy Consult (Consult Rx Vancomycin Dosing) 1 each MISCELLANE DAILY PRN PRN Reason: Consult order Propranolol HCl (Propranolol Hcl La 60 Mg Cap.Sa.24h) 120 mg PO DAILY [facility]; Protocol Last Admin: 08/29/21 07:25 Dose: 120 mg Documented by: ANTIONETTE Ranolazine (Ranolazine 500 Mg Tab.Er.12h) 500 mg PO BID [facility] Last Admin: 08/29/21 07:25 Dose: 500 mg Documented by: ANTIONETTE Sacubitril/Valsartan (Sacubitril/Valsartan 49/51 1 Tab Tablet) 1 tab PO BID [facility]; Protocol Last Admin: 08/29/21 07:24 Dose: 1 tab Documented by: ANTIONETTE Torsemide (Torsemide 20 Mg Tablet) 40 mg PO TIDWM [facility]; Protocol Last Admin: 08/21/21 08:56 Dose: 40 mg Documented by: GEOVANNY Labs CBC & Chem 7: 08/25/21 04:56 08/29/21 05:44 Labs: Laboratory Results - last 24 hr 08/28/21 08/28/21 08/28/21 11:42 15:45 20:08 Estim Creat Clear Calc Estimated GFR POC Glucose 121 H 130 H Random Vancomycin 16.6 08/28/21 08/29/21 08/29/21 20:40 05:44 07:30 Estim Creat Clear Calc 121.9 Estimated GFR > 60 POC Glucose 126 H 87 Random Vancomycin Microbiology Microbiology Results: Microbiology 08/24/21 11:28 Blood Culture - Preliminary Blood - Venous Staphylococcus aureus Assessment and Plan (1) MRSA bacteremia: Status: Acute Assessment and Plan: this is a 71-year-old male with past medical history of diabetes, hypothyroidism, CHF who presents to the hospital with?complaints of weakness found to have fever of unknown origin MRSA bacteremia Blood cx from 08/24 showing GPC 1/2, midline when final BCx from 08/20 22 positive for MRSA; BCx from 08/22 12 + ESR 27, CRP 22 ECHO with no evidence of endocarditis Left hip, Right knee prosthesis, but no evidence of infection on ct abdomen/pelvis from 08/20, xray right knee continue IV vanoc, will d/c zosyn ID following Will need Midline Line for [address] lumbar spine showing multilevel degenerative changes, chronic b/l L5 pars defects. no infectious process seen Pain present for years, no radiation, no bowel incontinence Lidocaine patches and pain management Pain management consult CAD/Chronic HFrEF echo showing EF 30-35% with ineroseptal wall, basal inferior, mid inferior and apical segments akinetic and basal inferolateral segment dyskinetic. no previous for comparison euvolemic Continue BB/ASA/Statin/Entresto/ranexa/torsemide Outpatient follow-up with Cardiology ? DMII continue Lantus SSI GERD continue PPI hypothyroidism continue synthroid ?full code ?heparin attending Dr. Cee Quality Stroke Does the patient have a stroke diagnosis?: No VTE Prior VTE?: No VTE Risk Level:: Medical - moderate - high VTE Device Contraindication: Treatment Not Indicated VTE Drug Contraindication: N/A - Med Ordered
[2021-08-29] MEDS: HYDROmorphone HCl 1 MG/ML SYRINGE IVPUSH ×3 (09:57→19:49)
[2021-08-29] MEDS: Heparin Sodium,Porcine 5,000 UNIT/ML VIAL 5000 UNIT SUBCUT ×2 (10:00→21:20)
[2021-08-29] MEDS: vancomycin HCL 1,250 MG in 0.9 % Sodium Chloride 250 ML 166.67 MG IV ×2 (10:01→21:21)
[2021-08-29 11:23] VITALS: BP 122/60; PULSE 59; RESP 18; TEMP 36.1; O2SAT 93
[2021-08-29 11:28] LABS: Glucose, Whole Blood 123 mg/dL (60-115)
[2021-08-29 16:00] VITALS: BP 169/74; PULSE 56; RESP 17; TEMP 37.1; O2SAT 93
[2021-08-29 16:43] LABS: Glucose, Whole Blood 89 mg/dL (60-115)
[2021-08-29 19:19] VITALS: BP 136/67; PULSE 59; RESP 18; TEMP 36.8; O2SAT 91
[2021-08-29 19:49] LABS: Glucose, Whole Blood 168 mg/dL (60-115)
[2021-08-29] MEDS: Insulin Glargine,Hum.rec.anlog 100 UNIT/ML 10 ML VIAL 34 UNIT SUBCUT (21:21)
[2021-08-29] MEDS: Acetaminophen 325 MG TABLET 650 MG PO (21:21)
[2021-08-29] MEDS: Insulin Lispro 100 UNIT/ML 3 ML VIAL SUBCUT (21:21)
[2021-08-29 23:40] VITALS: BP 148/72; PULSE 59; RESP 18; TEMP 36.3; O2SAT 94
[2021-08-30] MEDS: HYDROmorphone HCl 1 MG/ML SYRINGE IVPUSH ×5 (00:56→21:49)
[2021-08-30 03:49] VITALS: BP 130/61; PULSE 55; RESP 18; TEMP 37.1; O2SAT 93
[2021-08-30] MEDS: oxyCODONE HCl Immed Release 5 MG TABLET 10 MG PO ×4 (06:18→19:01)
[2021-08-30] MEDS: Omeprazole 20 MG CAPSULE.DR PO (06:18)
[2021-08-30] MEDS: Levothyroxine Sodium 150 MCG TABLET PO (06:18)
[2021-08-30 06:27] LABS: Estimated Glomerular Filt Rate > 60
[2021-08-30 07:14] VITALS: BP 158/70; PULSE 60; RESP 20; TEMP 36.1; O2SAT 90
[2021-08-30 07:30] LABS: Glucose, Whole Blood 85 mg/dL (60-115)
[2021-08-30] MEDS: Atorvastatin Calcium 80 MG TABLET PO (07:45)
[2021-08-30] MEDS: Ranolazine 500 MG TAB.ER.12H PO ×2 (07:45→21:50)
[2021-08-30] MEDS: Docusate Sodium 100 MG CAPSULE PO (07:45)
[2021-08-30] MEDS: Meclizine HCl 12.5 MG TABLET PO ×2 (07:45→21:50)
[2021-08-30] MEDS: Sacubitril/Valsartan 49/51 1 TAB TABLET PO ×2 (07:45→21:50)
[2021-08-30] MEDS: Cyclobenzaprine HCl 5 MG TABLET PO ×2 (07:45→21:50)
[2021-08-30] MEDS: Metoprolol Succinate ER 50 MG TAB.ER.24H PO (07:45)
[2021-08-30] MEDS: Aspirin 81 MG TAB.CHEW PO (07:46)
[2021-08-30] MEDS: Propranolol HCL LA 60 MG CAP.SA.24H 120 MG PO (07:46)
[2021-08-30] MEDS: Heparin Sodium,Porcine 5,000 UNIT/ML VIAL 5000 UNIT SUBCUT ×2 (08:40→21:49)
[2021-08-30 09:17] LABS: Vancomycin Trough 19.6 mcg/mL (10.0-20.0)
[2021-08-30] MEDS: vancomycin HCL 1,250 MG in 0.9 % Sodium Chloride 250 ML 166.67 MG IV ×2 (09:29→21:49)
[2021-08-30] MEDS: Acetaminophen 325 MG TABLET 650 MG PO ×2 (09:57→19:01)
[2021-08-30 10:07] VITALS: BP 158/70; PULSE 60; O2SAT 90
--- NOTE | 2021-08-30 10:17 | P.PNIM_ITS ---
Subjective Subjective Date of Service: 08/30/21 Review of Systems Follow up back pain, bacteremia Still with back good appetite Physical Exam Verdana 4l Vital Signs: Verdana 4d Verdana 4d Vital Signs: Verdana 4d Verdana 4Bd Last Vital Signs Verdana 4d [employer] [facility] New 4d Lala Sheehan 4d Temp 97 F 08/30/21 07:14 [employer] New 4d Pulse 60 08/30/21 10:07 [employer] [facility] New 4d Resp 20 08/30/21 07:14 BP 158/70 H 08/30/21 10:07 Pulse Ox 90 L 08/30/21 10:07 BMI result Body Mass Index 36.3 Appearing in no acute distress lung sounds are clear to auscultation heart regular rate rhythm, clear S1, S2 positive bowel sounds, abdomen is soft, nontender neuro patient is alert x3, no focal deficits Objective Data Active Medications Acetaminophen (Acetaminophen 325 Mg Tablet) 650 mg PO Q6H PRN PRN Reason: Pain, Mild (Pain Scale 1-3) Last Admin: 08/30/21 09:57 Dose: 650 mg Documented by: CHRISTOPHER Aspirin (Aspirin 81 Mg Tab.Chew) 81 mg PO DAILY [facility] Last Admin: 08/30/21 07:46 Dose: 81 mg Documented by: CHRISTOPHER Atorvastatin Calcium (Atorvastatin Calcium 80 Mg Tablet) 80 mg PO DAILY [facility] Last Admin: 08/30/21 07:45 Dose: 80 mg Documented by: CHRISTOPHER Bisacodyl (Bisacodyl 5 Mg Tablet.Dr) 10 mg PO BEDTIME PRN PRN Reason: Constipation Last Admin: 08/22/21 23:48 Dose: 10 mg Documented by: TYRONEQC Cyclobenzaprine HCl (Cyclobenzaprine Hcl 5 Mg Tablet) 5 mg PO BID [facility] Last Admin: 08/30/21 07:45 Dose: 5 mg Documented by: CHRISTOPHER Dextrose (Dextrose 50 % 25 Gm/50 Ml Syringe) 25 gm IVPUSH Q15M PRN; Protocol PRN Reason: per Hypoglycemia Standing Ord. Docusate Sodium (Docusate Sodium 100 Mg Capsule) 100 mg PO DAILY [facility] Last Admin: 08/30/21 07:45 Dose: 100 mg Documented by: CHRISTOPHER Glucose (Glucose Gel 15 Gm Gel..Gram.) 15 gm PO Q15M PRN; Protocol PRN Reason: per Hypoglycemia Standing Ord. Heparin Sodium (Porcine) (Heparin Sodium,Porcine 5,000 Unit/Ml Vial) 5,000 unit SUBCUT Q12H [facility] Last Admin: 08/30/21 08:40 Dose: 5,000 unit Documented by: ANTIONETTE Hydromorphone HCl (Hydromorphone Hcl 1 Mg/Ml Syringe) 1 mg IVPUSH Q4H PRN; Protocol PRN Reason: Pain, Severe (Pain Scale 7-10) Last Admin: 08/30/21 07:45 Dose: 1 mg Documented by: CHRISTOPHER Vancomycin HCl 1,250 mg/ (Sodium Chloride) 250 mls @ 166.667 mls/hr IV Q12H [facility] Last Admin: 08/30/21 09:29 Dose: 166.67 mls/hr Documented by: ANTIONETTE Insulin Glargine (Insulin Glargine,Hum.Rec.Anlog 100 Unit/Ml 10 Ml Vial) 34 unit SUBCUT BEDTIME [facility] Last Admin: 08/29/21 21:21 Dose: 34 unit Documented by: KALI Insulin Human Lispro (Insulin Lispro 100 Unit/Ml 3 Ml Vial) 0 unit SUBCUT QIDACHS [facility]; Protocol Last Admin: 08/30/21 07:29 Dose: Not Given Documented by: ANTIONETTE Non-Admin Reason: No Insulin Coverage Levothyroxine Sodium (Levothyroxine Sodium 150 Mcg Tablet) 150 mcg PO DAILY@0600 [facility] Last Admin: 08/30/21 06:18 Dose: 150 mcg Documented by: KALI Lidocaine (Lidocaine 4 % Patch Adh..Patch) 1 patch TRANSDERMA DAILY [facility]; Pr otocol Last Admin: 08/30/21 07:46 Dose: Not Given Documented by: CHRISTOPHER Non-Admin Reason: Patient Refused Meclizine HCl (Meclizine Hcl 12.5 Mg Tablet) 12.5 mg PO BID [facility] Last Admin: 08/30/21 07:45 Dose: 12.5 mg Documented by: CHRISTOPHER Metoprolol Succinate (Metoprolol Succinate Er 50 Mg Tab.Er.24h) 50 mg PO DAILY [facility]; Protocol Last Admin: 08/30/21 07:45 Dose: 50 mg Documented by: CHRISTOPHER Mexiletine HCl (Mexiletine Hcl 150 Mg Capsule) 150 mg PO Q8H [facility] Last Admin: 08/30/21 06:18 Dose: 150 mg Documented by: KALI Omeprazole (Omeprazole 20 Mg Capsule.Dr) 20 mg PO DAILY@0630 [facility] Last Admin: 08/30/21 06:18 Dose: 20 mg Documented by: KALI Ondansetron HCl (Ondansetron Hcl 4 Mg/2 Ml Vial) 4 mg IVPUSH Q8H PRN PRN Reason: Nausea and Vomiting Oxycodone HCl (Oxycodone Hcl Immed Release 5 Mg Tablet) 10 mg PO Q4H PRN PRN Reason: Pain, Mild (Pain Scale 1-3) Last Admin: 08/30/21 09:57 Dose: 10 mg Documented by: CHRISTOPHER Pharmacy Consult (Consult Rx Perform Med Rec) 1 each MISCELLANE ONCE PRN PRN Reason: Consult order Propranolol HCl (Propranolol Hcl La 60 Mg Cap.Sa.24h) 120 mg PO DAILY [facility]; Protocol Last Admin: 08/30/21 07:46 Dose: 120 mg Documented by: CHRISTOPHER Ranolazine (Ranolazine 500 Mg Tab.Er.12h) 500 mg PO BID [facility] Last Admin: 08/30/21 07:45 Dose: 500 mg Documented by: CHRISTOPHER Sacubitril/Valsartan (Sacubitril/Valsartan 49/51 1 Tab Tablet) 1 tab PO BID [facility]; Protocol Last Admin: 08/30/21 07:45 Dose: 1 tab Documented by: CHRISTOPHER Torsemide (Torsemide 20 Mg Tablet) 40 mg PO TIDWM [facility]; Protocol Last Admin: 08/21/21 08:56 Dose: 40 mg Documented by: GEOVANNY Labs CBC & Chem 7: 08/25/21 04:56 08/30/21 05:38 Labs: Laboratory Results - last 24 hr 08/29/21 08/29/21 08/29/21 11:23 16:38 19:22 Estim Creat Clear Calc Estimated GFR POC Glucose 123 H 89 168 H Vancomycin Trough 08/30/21 08/30/21 08/30/21 05:38 07:27 08:42 Estim Creat Clear Calc 108.0 Estimated GFR > 60 POC Glucose 85 Vancomycin Trough 19.6 Microbiology Microbiology Results: Microbiology 08/24/21 11:28 Blood Culture - Final Blood - Venous No growth after 5 days. 08/24/21 11:28 Blood Culture - Preliminary Blood - Venous Staphylococcus aureus Assessment and Plan (1) MRSA bacteremia: Status: Acute Plan this is a 71-year-old male with past medical history of diabetes, hypothyroidism, CHF who presents to the hospital with?complaints of weakness found to have fever of unknown origin MRSA bacteremia BCx from 08/20 2/2 positive for MRSA, Blood cx from 08/24 showing GPC 1/2 ESR 27, CRP 22 ECHO with no evidence of endocarditis Left hip, Right knee prosthesis, but no evidence of infection on ct abdomen/pelvis from 08/20, xray right knee continue IV vanco ID following Will need Midline Line for 4 weeks abx when cx final, repeat cx from 08/[address] lumbar spine showing multilevel degenerative changes, chronic b/l L5 pars defects. no infectious process seen Pain present for years, no radiation, no bowel incontinence Lidocaine patches and pain management Pain management consult CAD/Chronic HFrEF echo showing EF 30-35% with ineroseptal wall, basal inferior, mid inferior and apical segments akinetic and basal inferolateral segment dyskinetic. no previous for comparison euvolemic Continue BB/ASA/Statin/Entresto/ranexa/torsemide Outpatient follow-up with Cardiology ? DMII continue Lantus SSI GERD continue PPI hypothyroidism continue synthroid ?full code ?heparin attending Dr. Cee Quality Stroke Does the patient have a stroke diagnosis?: No VTE Prior VTE?: No VTE Risk Level:: Medical - moderate - high VTE Device Contraindication: Treatment Not Indicated VTE Drug Contraindication: N/A - Med Ordered
[2021-08-30 11:06] VITALS: BP 115/69; PULSE 55; RESP 19; TEMP 36; O2SAT 94
[2021-08-30 11:39] LABS: Glucose, Whole Blood 132 mg/dL (60-115)
[2021-08-30 15:36] VITALS: BP 132/59; PULSE 53; RESP 18; TEMP 36.4; O2SAT 96
--- NOTE | 2021-08-30 15:53 | MHC.CM.PN ---
EMR REVIEWED, STILL AWAITING FINAL BLOOD CULTURES PRIOR TO PICC PLACEMENT, PICC LINE TO BE PLACED ONCE CULTURES ARE NEGATIVE. PT WILL NEED FIRST DOSE IV ABX IN PICC LINE AND D/C HOME W/[facility].
[2021-08-30 16:24] LABS: Glucose, Whole Blood 73 mg/dL (60-115)
[2021-08-30 19:38] VITALS: BP 150/75; PULSE 55; RESP 18; TEMP 36.6; O2SAT 90
[2021-08-30 19:47] LABS: Glucose, Whole Blood 98 mg/dL (60-115)
[2021-08-30] MEDS: Insulin Glargine,Hum.rec.anlog 100 UNIT/ML 10 ML VIAL 34 UNIT SUBCUT (21:49)
[2021-08-31] VITALS (7 sets, daily range): BP systolic 135–191; BP diastolic 60–92; PULSE 53–62; RESP 18–19; TEMP 36.3–36.8; O2SAT 90–95
[2021-08-31 05:46] LABS: Hematocrit 40.8 % (42.0-52.0); Hemoglobin 13.1 g/dl (14.0-18.0); Mean Corpuscular HGB Conc 32.1 g/dl (31.0-36.0); Mean Corpuscular Hemoglobin 30.4 pg (27.0-33.0); Mean Corpuscular Volume 94.7 fL (80.0-98.0); Mean Platelet Volume 9.5 fL (9.4-12.4); Platelet Count 319 X10*3/uL (160-400); Red Blood Count 4.31 X10*6/uL (4.60-5.80); Red Cell Distribution Width 12.9 % (11.0-16.0); White Blood Count 15.8 X10*3/uL (4.8-10.8)
[2021-08-31] MEDS: oxyCODONE HCl Immed Release 5 MG TABLET 10 MG PO ×4 (06:19→20:04)
[2021-08-31] MEDS: Omeprazole 20 MG CAPSULE.DR PO (06:19)
[2021-08-31] MEDS: Levothyroxine Sodium 150 MCG TABLET PO (06:19)
[2021-08-31 06:28] LABS: Estimated Glomerular Filt Rate > 60
[2021-08-31 06:32] LABS: Anion Gap 18 (12-20); Blood Urea Nitrogen 16 mg/dL (9-16); Calcium 8.9 mg/dL (8.4-10.2); Carbon Dioxide 23 mmol/L (22-29); Chloride 102 mmol/L (96-108); Creatinine Clr Calc Pharmacy 94.1; Estimated Glomerular Filt Rate > 60; Glucose Random 87 mg/dL (60-115); Potassium 4.7 mmol/L (3.3-5.1); Sodium 138 mmol/L (135-145)
[2021-08-31 07:34] LABS: Glucose, Whole Blood 95 mg/dL (60-115)
[2021-08-31] MEDS: Aspirin 81 MG TAB.CHEW PO (08:05)
[2021-08-31] MEDS: Propranolol HCL LA 60 MG CAP.SA.24H 120 MG PO (08:05)
[2021-08-31] MEDS: Atorvastatin Calcium 80 MG TABLET PO (08:05)
[2021-08-31] MEDS: Metoprolol Succinate ER 50 MG TAB.ER.24H PO (08:05)
[2021-08-31] MEDS: Meclizine HCl 12.5 MG TABLET PO ×2 (08:05→20:03)
[2021-08-31] MEDS: Docusate Sodium 100 MG CAPSULE PO (08:05)
[2021-08-31] MEDS: Ranolazine 500 MG TAB.ER.12H PO ×2 (08:05→20:03)
[2021-08-31] MEDS: Heparin Sodium,Porcine 5,000 UNIT/ML VIAL 5000 UNIT SUBCUT ×2 (08:06→21:50)
[2021-08-31] MEDS: Sacubitril/Valsartan 49/51 1 TAB TABLET PO ×2 (08:06→20:03)
[2021-08-31] MEDS: Cyclobenzaprine HCl 5 MG TABLET PO ×2 (08:06→20:04)
[2021-08-31] MEDS: HYDROmorphone HCl 1 MG/ML SYRINGE IVPUSH (08:10)
[2021-08-31 10:03] LABS: Creatinine Clr Calc Pharmacy 89.7; Estimated Glomerular Filt Rate > 60
[2021-08-31 10:11] LABS: Vancomycin Trough 41.3 mcg/mL (10.0-20.0)
[2021-08-31 12:03] LABS: Glucose, Whole Blood 121 mg/dL (60-115)
--- NOTE | 2021-08-31 12:05 | HO.MIDLINE_ITS ---
PICC Line Insertion MIDLINE INSERTION Diagnosis: BACTEREMIA Indication: ASSISTED IV ANTIBIOTICS Pertinent Labs: REVIEWED Technique: Using sterile technique including cap and mask, glove and drape, the LEFT arm was prepped and draped in the usual sterile fashion of full barrier technique with CHG. Using ultrasound guidance, CEPHALIC vein access was ob tained IN SINGLE ATTEMPT BY THIS RN. A SINGLE LUMEN, NONPASV, (20G X 8CM) MIDLINE was positioned. The procedure was performed in S-272. Ultrasound was used to document vein patency and for needle entry. A formal ultrasound picture was recorded. [facility] Consultant has released the line for use and it is currently dressed with a StatLock, Tegaderm, and CHG disc. Verification has been performed for blood return and line patency. Arm Circumference: 37 CM Equipment: [employer] POWERGLIDE PRO Catheter Type: SINGLE LUMEN, NONPASV, (20G X 8CM) Lot #: [id number]
[2021-08-31] MEDS: HYDROmorphone HCl 1 MG/ML SYRINGE 0.25 MG IVPUSH ×2 (12:53→17:53)
[2021-08-31] MEDS: Heparin Sodium,Porcine Flush 50 UNITS, 0.9 % Sodium Chloride Flush 5 ML IVFLUSH ×2 (14:54→20:04)
--- NOTE | 2021-08-31 15:33 | HO.PM.IMPN ---
Subjective Subjective Date of Service: 08/31/21 Interval History: seen and examined this morning follow up for MRSA bacteremia still having back pain, seems to be improving no fevers, chills Review of Systems Review of Systems: Yes all other systems are reviewed and are negative Constitutional Constitutional: Denies chills Physical Exam Vital Signs: Vital Signs: Last Vital Signs Temp 98.2 F 08/31/21 15:21 Pulse 59 08/31/21 15:21 Resp 19 08/31/21 15:21 BP 157/73 H 08/31/21 15:21 Pulse Ox 94 08/31/21 15:21 BMI result Body Mass Index 36.3 Const: General: cooperative, no acute distress, alert and awake Nutritional Appearance: overweight Eyes: Sclerae: sclerae normal Resp: Effort & Inspection: normal respiratory effort, able to speak in complete sentences, no respiratory distress and no use of accessory muscles Cardio: Heart sounds: S1 normal heart sound present and S2 normal heart sound present GI: Palpation (GI): Soft to palpation and nontender Extrem: Other: able to move all 4 extremities spontaneously Objective Data Active Medications Acetaminophen (Acetaminophen 325 Mg Tablet) 650 mg PO Q6H PRN PRN Reason: Pain, Mild (Pain Scale 1-3) Last Admin: 08/30/21 19:01 Dose: 650 mg Documented by: KALI Aspirin (Aspirin 81 Mg Tab.Chew) 81 mg PO DAILY FORMERLY [facility], [facility] Last Admin: 08/31/21 08:05 Dose: 81 mg Documented by: ANTIONETTE Atorvastatin Calcium (Atorvastatin Calcium 80 Mg Tablet) 80 mg PO DAILY FOR[facility]LY [facility], [facility]1983 Last Admin: 08/31/21 08:05 Dose: 80 mg Documented by: ANTIONETTE Bisacodyl (Bisacodyl 5 Mg Tablet.Dr) 10 mg PO BEDTIME PRN PRN Reason: Constipation Last Admin: 08/22/21 23:48 Dose: 10 mg Documented by: KALI Heparin Sodium (Porcine) 50 (units/ Sodium Chloride 5 ml) 0 units IVFLUSH TID [facility], [facility]1983 Last Admin: 08/31/21 14:54 Dose: 50 unit Documented by: ANTIONETTE Cyclobenzaprine HCl (Cyclobenzaprine Hcl 5 Mg Tablet) 5 mg PO BID FOR[facility]LY [facility], [facility]1983 Last Admin: 08/31/21 08:06 Dose: 5 mg Documented by: ANTIONETTE Dextrose (Dextrose 50 % 25 Gm/50 Ml Syringe) 25 gm IVPUSH Q15M PRN; Protocol PRN Reason: per Hypoglycemia Standing Ord. Docusate Sodium (Docusate Sodium 100 Mg Capsule) 100 mg PO DAILY [facility], [facility] Last Admin: 08/31/21 08:05 Dose: 100 mg Documented by: ANTIONETTE Glucose (Glucose Gel 15 Gm Gel..Gram.) 15 gm PO Q15M PRN; Protocol PRN Reason: per Hypoglycemia Standing Ord. Heparin Sodium (Porcine) (Heparin Sodium,Porcine 5,000 Unit/Ml Vial) 5,000 unit SUBCUT Q12H [facility], [facility] Last Admin: 08/31/21 08:06 Dose: 5,000 unit Documented by: ANTIONTETE Hydromorphone HCl (Hydromorphone Hcl 1 Mg/Ml Syringe) 0.25 mg IVPUSH Q4H PRN; Protocol PRN Reason: Pain, Severe (Pain Scale 7-10) Last Admin: 08/31/21 12:53 Dose: 0.25 mg Documented by: ANTIONETTE Insulin Glargine (Insulin Glargine,Hum.Rec.Anlog 100 Unit/Ml 10 Ml Vial) 34 unit SUBCUT BEDTIME FOR[facility]LY [facility], [facility]1983 Last Admin: 08/30/21 21:49 Dose: 34 unit Documented by: KALI Insulin Human Lispro (Insulin Lispro 100 Unit/Ml 3 Ml Vial) 0 unit SUBCUT QIDACHS [facility], [facility]–1983; Protocol Last Admin: 08/31/21 12:00 Dose: Not Given Documented by: ANTIONETTE Non-Admin Reason: No Insulin Coverage Levothyroxine Sodium (Levothyroxine Sodium 150 Mcg Tablet) 150 mcg PO DAILY@0600 FOR[facility], [facility] Last Admin: 08/31/21 06:19 Dose: 150 mcg Documented by: KALI Lidocaine (Lidocaine 4 % Patch Adh..Patch) 1 patch TRANSDERMA DAILY [facility], [facility]–1983; Protocol Last Admin: 08/31/21 08:06 Dose: Not Given Documented by: ANTIONETTE Non-Admin Reason: Patient Refused Meclizine HCl (Meclizine Hcl 12.5 Mg Tablet) 12.5 mg PO BID [facility], [facility]1983 Last Admin: 08/31/21 08:05 Dose: 12.5 mg Documented by: ANTIONETTE Metoprolol Succinate (Metoprolol Succinate Er 50 Mg Tab.Er.24h) 50 mg PO DAILY [facility], [facility]; Protocol Last Admin: 08/31/21 08:05 Dose: 50 mg Documented by: ANTIONETTE Mexiletine HCl (Mexiletine Hcl 150 Mg Capsule) 150 mg PO Q8H [facility], [facility]1983 Last Admin: 08/31/21 12:56 Dose: 150 mg Documented by: ANTIONETTE Omeprazole (Omeprazole 20 Mg Capsule.Dr) 20 mg PO DAILY@0630 [facility], [facility]1983 Last Admin: 08/31/21 06:19 Dose: 20 mg Documented by: KALI Ondansetron HCl (Ondansetron Hcl 4 Mg/2 Ml Vial) 4 mg IVPUSH Q8H PRN PRN Reason: Nausea and Vomiting Oxycodone HCl (Oxycodone Hcl Immed Release 5 Mg Tablet) 10 mg PO Q4H PRN PRN Reason: Pain, Mild (Pain Scale 1-3) Last Admin: 08/31/21 14:54 Dose: 10 mg Documented by: ANTIONETTE Pharmacy Consult (Consult Rx Perform Med Rec) 1 each MISCELLANE ONCE PRN PRN Reason: Consult order Propranolol HCl (Propranolol Hcl La 60 Mg Cap.Sa.24h) 120 mg PO DAILY [facility], [facility]; Protocol Last Admin: 08/31/21 08:05 Dose: 120 mg Documented by: ANTIONETTE Ranolazine (Ranolazine 500 Mg Tab.Er.12h) 500 mg PO BID [facility], [facility]1983 Last Admin: 08/31/21 08:05 Dose: 500 mg Documented by: ANTIONETTE Sacubitril/Valsartan (Sacubitril/Valsartan 49/51 1 Tab Tablet) 1 tab PO BID [facility], [facility]; Protocol Last Admin: 08/31/21 08:06 Dose: 1 tab Documented by: ANTIONETTE Torsemide (Torsemide 20 Mg Tablet) 40 mg PO TIDWM [facility], [facility]; Protocol Last Admin: 08/21/21 08:56 Dose: 40 mg Documented by: GEOVANNY Labs CBC & Chem 7: 08/31/21 05:10 08/31/21 08:15 Labs: Laboratory Results - last 24 hr 08/30/21 08/30/21 08/31/21 16:19 19:38 05:10 MCV MCH MCHC RDW Plt Count MPV Absolute Nucleated RBC Nucleated RBC % (auto) Anion Gap Estim Creat Clear Calc 96.0 Estimated GFR > 60 POC Glucose 73 98 Random Glucose Calcium Vancomycin Trough 08/31/21 08/31/21 08/31/21 05:10 05:10 07:28 MCV 94.7 MCH 30.4 MCHC 32.1 RDW 12.9 Plt Count 319 D MPV 9.5 Absolute Nucleated RBC 0.000 Nucleated RBC % (auto) 0.0 Anion Gap 18 Estim Creat Clear Calc 94.1 Estimated GFR > 60 POC Glucose 95 Random Glucose 87 D Calcium 8.9 Vancomycin Trough 08/31/21 08/31/21 08/31/21 08:15 08:15 11:53 MCV MCH MCHC RDW Plt Count MPV Absolute Nucleated RBC Nucleated RBC % (auto) Anion Gap Estim Creat Clear Calc 89.7 Estimated GFR > 60 POC Glucose 121 H Random Glucose Calcium Vancomycin Trough 41.3 H* Microbiology Microbiology Results: Microbiology 08/29/21 08:22 Blood Culture - Preliminary Blood - Venous No growth after 48 hours. 08/29/21 08:22 Blood Culture - Preliminary Blood - Venous No growth after 48 hours. 08/24/21 11:28 Blood Culture - Final Blood - Venous Methicillin Res Staph Aureus Assessment and Plan (1) MRSA bacteremia: Status: Acute Plan this is a 71-year-old male with past medical history of diabetes, hypothyroidism, CHF who presents to the hospital with?complaints of weakness found to have fever of unknown origin MRSA bacteremia BCx from 08/20 2/2 positive for MRSA, Blood cx from 08/24 showing MRSA; repeat BCX from 08/29 negative x 48 hours ESR 27, CRP 22 ECHO with no evidence of endocarditis Left hip, Right knee prosthesis, but no evidence of infection on ct abdomen/pelvis from 08/20, xray right knee continue IV vanco ID following Will need PICC Line for 4 weeks IV vancomycin vanco trough high, will hold vanco back pain CT lumbar spine showing multilevel degenerative changes, chronic b/l L5 pars defects. no infectious process seen Pain present for years, no radiation, no bowel incontinence Lidocaine patches and pain management will wean narcotics CAD/Chronic HFrEF echo showing EF 30-35% with ineroseptal wall, basal inferior, mid inferior and apical segments akinetic and basal inferolateral segment dyskinetic. no previous for comparison euvolemic Continue BB/ASA/Statin/Entresto/ranexa/torsemide Outpatient follow-up with Cardiology ? DMII continue Lantus SSI GERD continue PPI hypothyroidism continue synthroid ?full code ?heparin attending Dr. Cee Quality Stroke Does the patient have a stroke diagnosis?: No VTE Prior VTE?: No VTE Risk Level:: Medical - moderate - high VTE Device Contraindication: Treatment Not Indicated VTE Drug Contraindication: N/A - Med Ordered
[2021-08-31 16:07] LABS: Glucose, Whole Blood 105 mg/dL (60-115)
--- NOTE | 2021-08-31 17:10 | HO.PICC ---
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 Following informed consent including risks, benefits and alternatives and using sterile technique including cap and mask, sterile gown, glove and drape, the LEFT arm was prepped and draped in the usual sterile fashion of full barrier technique with CHG. Following completion of [place] Protocol the skin and soft tissues were anesthetized with 1% Lidocaine plain. Using ultrasound guidance, CEPHALIC vein access was obtained IN SINGLE ATTEMPT. Over an 0.018 wire through peel-away sheath, a SINGLE LUMEN, PASV PICC line was positioned. Catheter length is 50 CM internal length, 0 CM external length, for a total trimmed length of 50 CM. The procedure was performed in S-272. Tip verification was performed by John Agee with Jeimy 3CG. Tip located in SVC. Ultrasound was used to document vein patency and for needle entry. A formal ultrasound picture and cardiac rhythm strip was recorded. [employer] has released the line for use and it is currently dressed with a StatLock, Tegaderm, and CHG disc. Verification has been performed for blood return and line patency. Arm Circumference: 37 CM Equipment: Walk-in POWERPICC SOLO Catheter Type: 4-SENEGALESE, SINGLE LUMEN, PASV Lot #: [id number]
[2021-08-31] MEDS: Acetaminophen 325 MG TABLET 650 MG PO (20:03)
[2021-08-31 20:09] LABS: Glucose, Whole Blood 137 mg/dL (60-115)
[2021-08-31] MEDS: Insulin Glargine,Hum.rec.anlog 100 UNIT/ML 10 ML VIAL 34 UNIT SUBCUT (21:51)
[2021-09-01] VITALS: BP 151/82; PULSE 60; RESP 20; TEMP 35.9; O2SAT 91
[2021-09-01] MEDS: oxyCODONE HCl Immed Release 5 MG TABLET 10 MG PO ×4 (00:06→13:47)
[2021-09-01 04:00] VITALS: BP 139/65; PULSE 53; RESP 16; TEMP 35.9; O2SAT 90
[2021-09-01] MEDS: Levothyroxine Sodium 150 MCG TABLET PO (06:14)
[2021-09-01] MEDS: Omeprazole 20 MG CAPSULE.DR PO (06:14)
[2021-09-01 06:57] LABS: Creatinine Clr Calc Pharmacy 87.2; Estimated Glomerular Filt Rate > 60
[2021-09-01 07:01] LABS: Vancomycin Random 13.9 mcg/mL (15-20)
[2021-09-01 07:41] VITALS: BP 133/70; PULSE 52; RESP 18; TEMP 36.2; O2SAT 92
[2021-09-01 07:52] LABS: Glucose, Whole Blood 84 mg/dL (60-115)
[2021-09-01] MEDS: Docusate Sodium 100 MG CAPSULE PO (08:58)
[2021-09-01] MEDS: Propranolol HCL LA 60 MG CAP.SA.24H 120 MG PO (08:58)
[2021-09-01] MEDS: Aspirin 81 MG TAB.CHEW PO (08:58)
[2021-09-01] MEDS: Metoprolol Succinate ER 50 MG TAB.ER.24H PO (08:59)
[2021-09-01] MEDS: Sacubitril/Valsartan 49/51 1 TAB TABLET PO (08:59)
[2021-09-01] MEDS: Meclizine HCl 12.5 MG TABLET PO (08:59)
[2021-09-01] MEDS: Heparin Sodium,Porcine 5,000 UNIT/ML VIAL 5000 UNIT SUBCUT (08:59)
[2021-09-01] MEDS: Cyclobenzaprine HCl 5 MG TABLET PO (08:59)
[2021-09-01] MEDS: Atorvastatin Calcium 80 MG TABLET PO (08:59)
[2021-09-01] MEDS: Ranolazine 500 MG TAB.ER.12H PO (08:59)
[2021-09-01] MEDS: 0.9 % Sodium Chloride Flush 10 ML SYRINGE 5 ML IVFLUSH (09:00)
--- NOTE | 2021-09-01 09:02 | HE.PHANOTE ---
Vancomycin Dosing Update Vancomycin regimen temporarily discontinued yesterday due to supratherapeutic level. This morning the vancomycin random level returned to an acceptable level for continued administration. The new regimen will begin at 1.25g vancomycin IV q24h in anticipation of discharge with PICC and continued vancomycin regimen. Discussed and approved by Dr Hoffman.
[2021-09-01] MEDS: Acetaminophen 325 MG TABLET 650 MG PO (10:04)
[2021-09-01] MEDS: vancomycin HCL 1,250 MG in 0.9 % Sodium Chloride 250 ML 166.67 MG IV (10:05)
[2021-09-01 11:19] LABS: Glucose, Whole Blood 127 mg/dL (60-115)
[2021-09-01 11:22] VITALS: BP 153/63; PULSE 61; RESP 18; TEMP 36.5; O2SAT 92
--- NOTE | 2021-09-01 11:39 | P.DS_ITS ---
DS: Providers Provider Date of Service: 09/01/21 Date of admission: 08/20/21 21:34 Date of discharge: 09/01/21 Primary care physician: DIANA Coleman Consults: 08/21/21 07:47 Consult to Infectious Diseases Routine Consulting Provider: Kanwal Hoffman Reason for consultation: FUO Has provider been notified: No 08/21/21 08:13 Consult to Infectious Diseases Routine Consulting Provider: Kanwal Hoffman Reason for consultation: GRAM-POSITIVE BACTEREMIA Has provider been notified: No 08/24/21 14:18 Consult to Cardiology Routine Consulting Provider: Iam Delgado Reason for consultation: MRSA bacteremia, PM ?PM wires source of infection Has provider been notified: No 08/29/21 09:48 Consult to Pain Management Routine Consulting Provider: Justice Bryant Reason for consultation: severe back pain Has provider been notified: No Attending physician on discharge: Roberth Cee Discharging clinician: Gerri Velazquez DS: Diagnosis Discharge Diagnosis (1) MRSA bacteremia: Status: Acute DS: Summary Hospital Course Hospital Course: Patient was initially admitted for fever and weakness. Chest CT, abdominal/ pelvis CT, head CT with no source of infection. UA negative for UTI. Respiratory pathogen panel negative. HIV, hepatitis screen negative. Blood cultures returned positive for MRSA. MRSA bacteremia BCx from 08/20 09/06 positive for MRSA, Blood cx from 08/24 showing MRSA; repeat BCX from 08/29 negative x 48 hours ECHO showed no evidence of endocarditis or infection of pacer wires. Left hip, Right knee prosthesis, but no evidence of infection on ct abdomen/pelvis from 08/20, xray right knee unremarkable. He was seen by ID and treated with IV vancomycin. A PICC line was placed 08/31 and he will need to complete 4 weeks of IV vanco 1250 q24 hours starting from first negative blood culture (08/29) with end date 09/26. vanco trough, cbc and bmp should be monitored weekly. back pain CT lumbar spine showing multilevel degenerative changes, chronic b/l L5 pars defects. no infectious process seen Pain present for years, no radiation, no bowel incontinence. Will be discharged home with lidoderm patches and oxycodone for severe pain. The patient thinks his pain has worsened in the hospital secondary to the hospital bed. He was seen by PT who recommend STR but patient has declined and wishes to return home. Other home medications were continued and he should follow up with PCP Time Spent with Patient Time attestation: Total time spent providing and/or coordinating discharge services: Discharge coordination time: Greater than 30 minutes Quality: Stroke Does the patient have a stroke diagnosis?: No Physical Exam Verdana 4l Vital Signs: Verdana 4d Verdana 4d Vital Signs: Verdana 4d Verdana 4Bd Last Vital Signs Verdana 4d Marking Machine Tender New 4d Marking Machine Tender New 4d Temp 97.7 F 09/01/21 11:22 Marking Machine Tender New 4d Pulse 61 09/01/21 11:22 Marking Machine Tender New 4d Resp 18 09/01/21 11:22 BP 153/63 H 09/01/21 11:22 Pulse Ox 92 09/01/21 11:22 BMI result Body Mass Index 36.3 Const: General: cooperative, comfortable, alert and awake Resp: Other: diminished, no wheezes or rales GI: Palpation (GI): Soft to palpation and nontender Extrem: Other: able to move all 4 extremities spontaneously DS: Data Data Completed and Pending Labs on day of discharge: Laboratory Results - last 24 hr 08/31/21 08/31/21 08/31/21 11:53 15:23 20:02 Creatinine Estim Creat Clear Calc Estimated GFR POC Glucose 121 H 105 137 H Random Vancomycin 09/01/21 09/01/21 09/01/21 06:16 06:16 07:44 Creatinine 1.09 Estim Creat Clear Calc 87.2 Estimated GFR > 60 POC Glucose 84 Random Vancomycin 13.9 L 09/01/21 11:15 Creatinine Estim Creat Clear Calc Estimated GFR POC Glucose 127 H Random Vancomycin Preliminary micro results at discharge 08/29/21 08:22 Blood Culture - Preliminary Blood - Venous No growth after 48 hours. 08/29/21 08:22 Blood Culture - Preliminary Blood - Venous No growth after 48 hours. Discharge Plan Discharge Patient Disposition: Home Health Service Discharge Diagnosis: MRSA bacteremia Referrals: Fabián [facility]NT[facility] [Outside] - 1 Week Gin Valera PA [Primary Care Provider] - 1 Week Discharge Medications: Continued atorvastatin 80 mg tablet 1 tab PO DAILY 0RF torsemide 20 mg tablet 2 tab PO TID 0RF metoprolol succinate 50 mg tablet extended release 24 hr 1 tab PO DAILY 0RF pantoprazole 40 mg tablet,delayed release (DR/EC) 1 tab PO DAILY 0RF levothyroxine 150 mcg tablet 1 tab PO QAM 0RF mexiletine 200 mg capsule 1 cap PO Q8H 0RF ranolazine 500 mg tablet extended release 12 hr 1 tab PO BID 0RF No Action propranolol 120 mg capsule,extended release 24 hr 1 cap PO DAILY 0RF Discharge Orders: Discharge Order (Routine); Ordered 09/01/21 Ordered By: Gerri Velazquez Diet: advance to usual diet Activity on Discharge: As tolerated Stand Alone Forms: Patient Portal Discharge page Care Plan Goals: see below Health Concerns: MRSA bacteremia back pain Plan of Treatment: complete course of antibiotics, 4 weeks of IV vancomycin starting 08/29, end date 09/26 back pain. can use tylenol/lidoderm for mild/moderate pain, oxycodone for severe pain please call to schedule follow up appointment with PCP Assessment: see discharge summary Discharge Date/Time: 09/01/21 16:57
--- NOTE | 2021-09-01 11:40 | MHC.CM.PN ---
Addendum entered by Colette Fishman 09/01/21 11:46: MORRIS ([phone]) LINE IS BUSY AFTER THREE ATTEMPTS TO CONTACT HER WITH THE PLAN (PER PATIENT REQUEST TO DO SO) Original Note: PATIENT TO RETURN HOME VIA [facility] FOR 1300 TODAY RN AND PATIENT AWARE OF PLAN. HE WILL HAVE [facility] AND [facility] IN THE HOME. IMM 09/01 IN CHART
--- NOTE | 2021-09-01 11:49 | P.PNID_ITS ---
Subjective Subjective Date of Service: 08/31/21 Critical Care Time (minutes): 15 Comment: He has MRSA bacteremia He has no complaints Objective Data Labs CBC & Chem 7: 08/31/21 05:10 09/01/21 06:16 Labs: Laboratory Results - last 24 hr 08/31/21 08/31/21 08/31/21 11:53 15:23 20:02 Creatinine Estim Creat Clear Calc Estimated GFR POC Glucose 121 H 105 137 H Random Vancomycin 09/01/21 09/01/21 09/01/21 06:16 06:16 07:44 Creatinine 1.09 Estim Creat Clear Calc 87.2 Estimated GFR > 60 POC Glucose 84 Random Vancomycin 13.9 L 09/01/21 11:15 Creatinine Estim Creat Clear Calc Estimated GFR POC Glucose 127 H Random Vancomycin Microbiology Microbiology Results: Microbiology 08/29/21 08:22 Blood - Venous Blood Culture - Preliminary No growth after 48 hours. 08/29/21 08:22 Blood - Venous Blood Culture - Preliminary No growth after 48 hours. 08/24/21 11:28 Blood - Venous Blood Culture - Final Methicillin Res Staph Aureus 08/24/21 11:28 Blood - Venous Blood Culture - Final No growth after 5 days. 08/22/21 16:19 Blood - Venous Blood Culture - Final No growth after 5 days. 08/22/21 17:25 Blood - Venous Blood Culture - Final Methicillin Res Staph Aureus 08/20/21 16:10 Blood - Venous Blood Culture - Final Methicillin Res Staph Aureus 08/20/21 16:09 Blood - Venous Blood Culture - Final Methicillin Res Staph Aureus Physical Exam Verdana 4l Vital Signs: Verdana 4d Verdana 4d Vital Signs: Verdana 4d Verdana 4Bd Last Vital Signs Verdana 4d Maintenance Data Analyst New 4d Maintenance Data Analyst New 4d Temp 97.7 F 09/01/21 11:22 Maintenance Data Analyst New 4d Pulse 61 09/01/21 11:22 Maintenance Data Analyst New 4d Resp 18 09/01/21 11:22 BP 153/63 H 09/01/21 11:22 Pulse Ox 92 09/01/21 11:22 BMI result Body Mass Index 36.3 Const: General: cooperative Eyes: General: appearance normal, both eyes and all related structures Resp: Effort & Inspection: normal respiratory effort Cardio: Rate: regular rate Rhythm: regular rhythm GI: Palpation (GI): Soft to palpation and nontender Extrem: General: Yes normal to inspection Assessment and Plan Assessment and plan (1) MRSA bacteremia: Problem details: He has cleared bacteremia Status: Acute Assessment and Plan: Continue antibiotics Stop 09/26/2021 (2) Staph aureus infection: Status: Acute Time Spent With Patient Time: Total time spent is greater than 50% in coordination of care (as documented) at patient's floor/unit and/or counseling patient: Time with patient: 15 - 24 minutes
--- NOTE | 2021-09-01 12:01 | W.MHC.F2F ---
Service Date Service Date: 09/01/21 Encounter Date of encounter: 09/01/21 Reasons for Services Signs and symptoms assessed: MRSA bacteremia; daily infusions; PICC line management back pain with difficuly ambulating Reason for prison: central line care and medication treatment Reason for physical therapy: home safety and mobility and therapeutic exercises MD Overseeing Care: Gin Valera Homebound: Leaving the home is medically contraindicated at this time without the asist of a device and/or another person due th the listed conditions above and below. Reason homebound: pain with ambulation and weakness related to hospital stay Certification: Based on the above findings, I certify that this patient is confined to the home and needs intermittent prison care, physical therapy and/or speech therapy, or continues to need occupational therapy. The patient is under my care, and I have initiated the establishment of the plan of care. The patient will be followed by a physician who will periodically review the plan of care.
--- NOTE | 2021-09-08 13:39 | P.CDIR_ITS ---
Documented by User: Zoey Branch RN 09/08/21 13:47 Retrospective Query PHYSICIAN'S DOCUMENTATION REQUEST Date of Query: 09/08/21 1332 Patient Name: Michael Salinas Admit Date: 08/20/21 Dear Doctor, A review of the medical record indicates additional documentation may be needed. Please review below and update the documentation accordingly. Clinical Indicators: The diagnosis of [Diagnosis] was documented on [date] but is not consistently noted in subsequent documentation. Risk Factors/Clinical Indicators/Treatments T 102.3 WBC 19.1 Per ID 08/21/21: sepsis, occult causes of fever Per H&P: Sepsis, unknown origin Per Discharge Summary 09/01/21, MRSA Bacteremia Please clarify the following: * Sepsis was present on admission and is now resolved * Sepsis was present on admission and is still being monitored, evaluated, or treated * Sepsis was ruled out * Sepsis is still a likely, suspected, probable diagnosis * Other (please specify) * Unable to determine Use of terms such as suspected, likely, concern for, or probable (associated with a specific diagnosis that is being evaluated, monitored, or treated as if it exists) are acceptable and can be coded in the inpatient setting, when documented at the time of discharge. Thank you, Zoey Branch RN Extension: [phone] Please use your independent medical judgment in providing your response. THIS QUERY IS PART OF THE PERMANENT MEDICAL RECORD Documented by User: Roberth Cee MD 09/19/21 08:03 Retrospective Query Provider Response: Other (Sepsis present on admission, resolved at time of d/c)
== END 2021-09-01 16:57 | disposition home health service (06) | DRG 872 ==
LOC: HO.ED 20:04 → HO.EDOVER 21:51 → HO.S3 08-21 15:59 → HO.EDOVER 08-21 16:12 → HO.S3 08-22 07:58
PROVIDERS: Hospitalist; Internal Medicine; Nurse Practitioner Acute Care; Physician Assistant; Admitting Provider Internal Medicine; Emergency Provider Emergency Medicine; PCP Physician Assistant; Visit Provider Physician Assistant Medical
DX: A41.02 Sepsis due to Methicillin resistant Staphylococcus aureus (principal); I50.22 Chronic systolic (congestive) heart failure; N18.30 Chronic kidney disease, stage 3 unspecified; E03.9 Hypothyroidism, unspecified; I25.10 Atherosclerotic heart disease of native coronary artery without angina pectoris; K21.9 Gastro-esophageal reflux disease without esophagitis; Z20.822 Contact with and (suspected) exposure to COVID-19; E11.22 Type 2 diabetes mellitus with diabetic chronic kidney disease; B95.62 Methicillin resistant Staphylococcus aureus infection as the cause of diseases classified elsewhere; Z96.642 Presence of left artificial hip joint; Z96.651 Presence of right artificial knee joint; Z91.14 Patient's other noncompliance with medication regimen; Z95.810 Presence of automatic (implantable) cardiac defibrillator; Z87.891 Personal history of nicotine dependence; Z79.890 Hormone replacement therapy; Z79.899 Other long term (current) drug therapy
CPT/HCPCS: 0241U; 36410; 36415; 36573; 70450; 71045; 71250; 72132; 73560; 74176; 80048; 80076; 80202; 80307; 81001; 82550; 82565; 82803; 82947; 83605; 83735; 83880; 84443; 84484; 85025; 85027; 85610; 85652; 85730; 86140; 86617; 86618; 86706; 86803; 87040; 87077; 87147; 87186; 87205; 87389; 87633; 87635; 93005; 93306; 93308; 93970; 96361; 96365; 97116; 97162; 99285; 99291; C1751; J0696; J1170; J1642; J2543; J3370; Q9957; Q9967

== ENCOUNTER 2021-09-01 22:51 | Emergency (ER) | payer MEDICARE, MEDICAID, SELFPAY ==
[2021-09-01 23:21] VITALS: BP 165/58; PULSE 64; RESP 20; TEMP 36.8; O2SAT 92; BMI 35.6
[2021-09-02] VITALS (7 sets, daily range): BP systolic 123–163; BP diastolic 55–83; PULSE 62–72; RESP 16–18; TEMP 35.6–36.7; O2SAT 88–97
--- NOTE | 2021-09-02 01:10 | ED_ITS ---
HPI - Back Pain/Injury General Chief Complaint: Weakness Stated Complaint: back pain Time Seen by Provider: 09/02/21 00:54 Source: patient and old records reviewed Mode of arrival: EMS Limitations: no limitations History of Present Illness HPI Narrative: my can't take care of me she almost kicked me out, I need pain medications elicited complaint: back pain (cannot be at home, needs IV antibiotics) Pertinent past history: prior back pain (recent admit needs IV abx vanco 1250 q 24 for MRSA bacteremia) Timing: constant Severity: moderate Similar Symptoms Previously: Yes Quality: throbbing Location: lumbar spine Radiation: none Exacerbating factors: movement Relieving factors: none Context: unknown Associated symptoms: denies other symptoms Work related injury: No Related Data Home Medications Medication Instructions Recorded Confirmed atorvastatin 80 mg tablet 1 tab PO DAILY 08/20/21 08/20/21 insulin glargine 100 unit/mL (3 34 unit SUBCUT BEDTIME 08/20/21 08/20/21 mL) subcutaneous pen (Lantus Solostar U-100 Insulin) levothyroxine 150 mcg tablet 1 tab PO QAM 08/20/21 08/20/21 metoprolol succinate 50 mg 1 tab PO DAILY 08/20/21 08/20/21 tablet,extended release 24 hr mexiletine 200 mg capsule 1 cap PO Q8H 08/20/21 08/20/21 pantoprazole 40 mg tablet,delayed 1 tab PO DAILY 08/20/21 08/20/21 release propranolol 120 mg capsule,24 1 cap PO DAILY 08/20/21 08/20/21 hr,extended release ranolazine 500 mg tablet,extended 1 tab PO BID 08/20/21 08/20/21 release,12 hr sacubitril 24 mg-valsartan 26 mg 1 tab PO BID 08/20/21 08/20/21 tablet (Entresto) torsemide 20 mg tablet 2 tab PO TID 08/20/21 08/20/21 Previous Rx's Medication Instructions Recorded lidocaine 5 % topical patch 1 patch TOPICAL DAILY PRN #30 ea 09/01/21 (Lidoderm) oxycodone 10 mg tablet 10 mg PO Q8H PRN #20 tab 09/01/21 vancomycin 1.25 gram intravenous 1.25 g IV Q24H 28 Days 09/01/21 solution Allergies Allergy/AdvReac Type Severity Reaction Status Date / Time No Known Allergies Allergy Unknown Verified 09/01/21 23:24 Review of Systems Verdana 4l Review of Systems: Verdana 4d Verdana 4d Constitutional : No Weight loss, No Fever, No Chills, ENT/Mouth : No Hearing loss, No Ear Pain, No Nasal Congestion, No Sinus Pain, No Hoarseness, No sore throat, No Rhinorrhea, No Swallowing Difficulty Cardiovascular : No Chest Pain, No SOBSOB Respiratory : No Cough, No Dyspnea Gastrointestinal : No Nausea, No Vomiting, No Diarrhea, No abdominal Pain, No Hematochezia, No Melena Genitourinary : No Dysuria, No Urinary Frequency, No Hematuria, No Urinary Incontinence, Musculoskeletal : positive back pain Skin : No Skin Lesions, No rash Neuro : No Weakness, No Numbness, No Paresthesias, no loss of bowel or bladder incontinence, no saddle anesthesia All other systems reviewed and are negative [facility] Past Medical History Medical History CAD (coronary artery disease) CHF (congestive heart failure) Chronic systolic heart failure Diabetes Hypothyroidism ICD (implantable cardioverter-defibrillator) in place Ischemic cardiomyopathy Pacemaker Ventricular tachyarrhythmia Surgical History H/O carotid endarterectomy History of heart artery stent History of hip replacement Total knee replacement status Social History Social History Household Members: Spouse Do you presently have visiting nurse or other home services: No Unable to assess alcohol history related to: Unable to respond Patient Tobacco Use Status: Former Tobacco user Substance Use Type: Marijuana Advance Directives: No service: No Current occupational status: disabled Physical Exam Verdana 4l Vital Signs: Verdana 4d Verdana 4d Vital Signs: Verdana 4d Verdana 4Bd Last Vital Signs Verdana 4d Brake Operator Sheet Metal New 4d Brake Operator Sheet Metal New 4d Temp 98.2 F 09/01/21 23:21 Brake Operator Sheet Metal New 4d Pulse 64 09/01/21 23:21 Brake Operator Sheet Metal New 4d Resp 20 09/01/21 23:21 BP 165/58 H 09/01/21 23:21 Pulse Ox 92 01/28/22 23:21 BMI result Body Mass Index 35.6 Appearance: Alert. Oriented X3. No acute distress. Somewhat agitated in a wheelchar Eyes: Pupils equal, round and reactive to light. ENT: Pharynx normal. Neck: Normal inspection. Neck supple. CVS: Normal heart rate and rhythm. Pulses normal. Respiratory: No respiratory distress. Breath sounds normal. Abdomen: Soft and nontender. Obese Skin: Skin warm and dry. Normal skin color. Normal skin turgor. Extremities: No lower extremity edema. Neuro: Oriented X 3. No motor deficit. No sensory deficit. Course Course Course Narrative: RN note last dose of vancomycin was at 1155am yesterday while inpatient Patient placed in physician observation at 141am. The indication for observation is that the patient needs more time to see CM for STR placement. At this time the patient is well developed well nourished, lungs clear, CV RRR, abd nontender, neuro is intact. + for MARTIN has had [employer] vaccines and just had booster per his reports, last COVID test 08/20 was negative patient repeatedly asking for IV dilaudid through PICC line, explained he has to be on oral medications for STR MDM - Back Pain/Injury MDM Narrative Medical decision making narrative: 71 yo male with recent MRSA bacteremia no source found with PICC Line placed for IV vancom 1250mg q24 hr states he cannot manage at home and now wants STR his almost kicked him out at this time will start on oral morphine and refer to PT/CM in ED - already offered STR, COVID test ordered Lab Data Labs: Lab Results 09/02/21 Range/Units 02:05 COVID-19 (ALEXANDR) Positive A (Negative) COVID-19 Clin Com See Note Discharge Plan Discharge Clinical Impression: MRSA bacteremia, COVID-19 Patient Disposition: Still a Patient Prescriptions: No Action atorvastatin 80 mg tablet 1 tab PO DAILY 0RF torsemide 20 mg tablet 2 tab PO TID 0RF metoprolol succinate 50 mg tablet extended release 24 hr 1 tab PO DAILY 0RF pantoprazole 40 mg tablet,delayed release (DR/EC) 1 tab PO DAILY 0RF levothyroxine 150 mcg tablet 1 tab PO QAM 0RF mexiletine 200 mg capsule 1 cap PO Q8H 0RF propranolol 120 mg capsule,extended release 24 hr 1 cap PO DAILY 0RF ranolazine 500 mg tablet extended release 12 hr 1 tab PO BID 0RF Lantus Solostar U-100 Insulin 100 unit/mL (3 mL) insulin pen 34 unit subcut BEDTIME 0RF Entresto 24-26 mg tablet 1 tab PO BID 0RF oxycodone 10 mg tablet 10 mg PO Q8H PRN (Reason: pain (scale score 7-10)) Qty: 20 0RF lidocaine [Lidoderm] 5 % adhesive patch,medicated 1 patch topical DAILY PRN (Reason: pain) Qty: 30 0RF Rx Instructions: leave on most painful area for up to 12 hrs vancomycin 1.25 gram recon soln 1.25 g IV Q24H 28 Days 0RF
[2021-09-02] MEDS: Morphine Sulfate Immed Release 15 MG TABLET PO ×4 (02:03→19:31)
[2021-09-02 02:26] LABS: COVID-19 Test Positive (Negative)
--- NOTE | 2021-09-02 03:25 | PC.NURSE ---
PT REFUSING TO LAY IN BED D/T PAIN IN LOWER BACK. PT WAS COMPLAINING ABOUT PUTTING ON THE GOWN. PT LATER APOLOGIZED TO THIS NURSE FOR ACTING RUDE. PT ALERT, RESPIRATIONS EASY, N/L. SKIN W/D. PT AWAITING FOR FURTHER ORDERS.
[2021-09-02] MEDS: LORazepam 1 MG TABLET PO (03:43)
--- NOTE | 2021-09-02 03:44 | PC.NURSE ---
pt medicated with ativan as per emar for anxiety. will continue to monitor pt. pt yelling out in pain. pt is requesting MD lesli aware.
--- NOTE | 2021-09-02 09:32 | PC.NURSE ---
This RN received call from patients regarding patients status in ED. patient told this RN ok to give information. was upset because patient had gone home yesterday and feels as though his discharge was not safe. explained to based on patients notes that he was offered STR but refused and we would be evaluated by PT today for placement. also updated that patient tested positive for covid. tells this rn that patient pain is not under control and that more needs to be done to control it. explained plan of care to , will reach out to CM to inform them of conversation. feels as though she was not involved in patients previous discharge plan. patient medicated by RN with PRN morphine. patient states his pain is being managed well with current pain regimen.
--- NOTE | 2021-09-02 10:45 | MHC.CM.PN ---
BROCK SPOKE TO PTS , [place] ([phone]) WHO REPORTS BEING UPSET THAT THE PT HAD BEEN DISCHARGED WITHOUT HER BEING CONTACTED. BROCK INFORMED HER NOTES INDICATED MULTIPLE ATTEMPTS WERE MADE TO CONTACT HER HOWEVER HER PHONE WAS BUSY. SHE REPORTS SHE ALSO HAS A CELL PHONE ([phone]) AND ASKS THAT IT BE PUT ON FILE. [place] REPORTS THE PT WAS NOT DOING BAD WHEN HE FIRST GOT HOME HOWEVER LATER THAT DAY HE TRIED TO GO TO THE BATHROOM AND ENDED UP ON THE FLOOR. SHE REPORTS HE WAS ON THE FLOOR FOR AN HOUR AND KEPT TELLING HER HE COULD GET UP BECAUSE HE DID NOT WANT HER TO CALL EMS, SHE REPORTS AFTER AN HOUR SHE CALLED AND THEY BROUGHT HIM IN. [place]VER REPORTS THE PT DID NOT WANT TO COME IN BECAUSE THE BEDS CAUSE HIM A GREAT DEAL OF PAIN. SHE REPORTS SHE FEELS HE NEEDS STR THOUGH BECAUSE SHE CAN NOT HELP HIM WITH HIS WEAKNESS. SHE REPORTS HE WAS DISCHARGING ON IV ABX WHICH SHE WAS NOT CONCERNED ABOUT AT ALL HOWEVER SHE DID NOT REALIZE HE WAS SO WEAK. [place] ASKS THAT REFERRALS BE MADE TO STR, SHE IS AWARE IT MAY NOT BE LOCAL PT IS NOW TESTING COVID +. SEVERAL REFERRALS WERE SENT HOWEVER A NEW PT EVAL WILL BE NEEDED STR WAS NOT RECOMMENDED DURING RECENT ADMISSION.
[2021-09-02 11:16] LABS: Anion Gap 14 (12-20); Blood Urea Nitrogen 14 mg/dL (9-16); Calcium 9.1 mg/dL (8.4-10.2); Carbon Dioxide 28 mmol/L (22-29); Chloride 104 mmol/L (96-108); Creatinine Clr Calc Pharmacy 93.3; Estimated Glomerular Filt Rate > 60; Glucose Random 96 mg/dL (60-115); Potassium 4.8 mmol/L (3.3-5.1); Sodium 141 mmol/L (135-145)
--- NOTE | 2021-09-02 12:26 | PHA.PROG ---
Admission Date/Time: Indication: Bacteremia Weight in k.47 kg Adjusted body weight in K.8 [place] body weight in K.9 Obesity Dosing Indication % IBW: Serum Creatinine - Last 168 Hours 09/02/21 10:56 Creatinine 1.01 Estimated CrCl and GFR - Last 168 Hours 09/02/21 10:56 Estim Creat Clear Calc 93.3 Estimated GFR > 60 Vancomycin Loading Dose: N/A Current Vancomycin Dosing Regimen: 1250MG Q24H Vancomycin Monitoring using AUC goal of 400 - 600 range with trough as surrogate marker: AUC 505, TROUGH 13.3 Date and Time for next Vancomycin Level to be drawn: 09/03 @1100 Pharmacist Comments on Vancomycin Plan: Using the obese model, patient's dose is 1250 q24. Last trough was 13.9. Recommend getting level after 2 doses. Vancomycin dosing will take advantage of [employer] as a clinical decision support tool that uses Bayesian modeling to calculate individual patient's pharmacokinetic parameters and forecast the patient's drug concentration time course with the target goal AUC 24 range of 400 - 600 mg/L/hr.
[2021-09-02] MEDS: vancomycin HCL 1,250 MG in 0.9 % Sodium Chloride 250 ML 166.67 MG IV (12:38)
[2021-09-02] MEDS: Torsemide 20 MG TABLET 40 MG PO (16:04)
[2021-09-02] MEDS: Atorvastatin Calcium 80 MG TABLET PO (16:04)
[2021-09-02] MEDS: Metoprolol Succinate ER 50 MG TAB.ER.24H PO (16:04)
[2021-09-02] MEDS: Ranolazine 500 MG TAB.ER.12H PO (22:10)
[2021-09-03] VITALS: RESP 16
[2021-09-03] MEDS: Morphine Sulfate Immed Release 15 MG TABLET PO ×5 (01:07→21:16)
[2021-09-03 06:00] VITALS: BP 126/51; PULSE 59; RESP 16; TEMP 36.7; O2SAT 98
[2021-09-03] MEDS: Levothyroxine Sodium 150 MCG TABLET PO (06:27)
[2021-09-03] MEDS: Omeprazole 20 MG CAPSULE.DR PO (06:27)
--- NOTE | 2021-09-03 07:04 | PC.NURSE ---
pt found sitting on the floor by his bed, pt reports sitting on the edge of the bed, attempted to lay back in bed, while getting his legs up on the bed, pt slipped and ended up on the floor, pt denies hitting his head, but does have a very small abrasion to his left knee, some bleeding to the area, knee wrapped with gauze. dr pérez aware.
[2021-09-03 08:03] VITALS: BP 111/45; PULSE 58; RESP 20; TEMP 36.7
[2021-09-03] MEDS: Torsemide 20 MG TABLET 40 MG PO ×3 (08:05→17:06)
[2021-09-03] MEDS: Atorvastatin Calcium 80 MG TABLET PO (08:05)
[2021-09-03] MEDS: Metoprolol Succinate ER 50 MG TAB.ER.24H PO (08:05)
--- NOTE | 2021-09-03 08:10 | MHC.CM.ED ---
Review of notes and EMR: Pt waiting for STR placement: PT eval completed and attached to broad referral base (over 25 facilities) Pt has barriers to placement including breakthrough COVID w/boostered vax status. Additional sites selected for placement: will await acceptance.
[2021-09-03 08:16] LABS: Anion Gap 16 (12-20); Blood Urea Nitrogen 16 mg/dL (9-16); Calcium 8.8 mg/dL (8.4-10.2); Carbon Dioxide 29 mmol/L (22-29); Chloride 100 mmol/L (96-108); Creatinine Clr Calc Pharmacy 83.3; Estimated Glomerular Filt Rate > 60; Glucose Random 113 mg/dL (60-115); Potassium 4.4 mmol/L (3.3-5.1); Sodium 141 mmol/L (135-145)
[2021-09-03] MEDS: Ranolazine 500 MG TAB.ER.12H PO ×2 (08:45→21:16)
--- NOTE | 2021-09-03 10:06 | HE.PHANOTE ---
RE MEXILETINE Patient is unable to bring medication from home at this time. His home dose is 200mg TID. During is last admission (admissions were back to back), he received 150mg Q8H, a recommendation approved by Dr Bahena and Dr Delgado (see note from last admission). Discussed with Kareen Rodriguez BOARDING MOTHER about the dose adjustment and if she wanted to get cardiology involved. She endorsed the order for 150mg TI at this time Thanks Boni
[2021-09-03 13:02] LABS: Vancomycin Random 11.5 mcg/mL (15-20)
--- NOTE | 2021-09-03 13:15 | HE.PHANOTE ---
RE VANCO DOSING Continue 1250mg Q24H; NEXT TROUGH 09/05 @1100. Predicted AUC 560, trough 14.4
[2021-09-03] MEDS: vancomycin HCL 1,250 MG in 0.9 % Sodium Chloride 250 ML 166.67 MG IV (13:34)
[2021-09-03 13:43] LABS: Glucose, Whole Blood 117 mg/dL (60-115)
[2021-09-03 16:56] VITALS: BP 118/47; PULSE 56; RESP 18; TEMP 37.1; O2SAT 99
[2021-09-04 00:08] VITALS: BP 121/45; PULSE 67; RESP 18; TEMP 36.7; O2SAT 94
[2021-09-04 06:38] VITALS: PULSE 89; RESP 16; O2SAT 98
[2021-09-04 07:24] VITALS: BP 111/44; PULSE 70; RESP 15; TEMP 36.9; O2SAT 97
[2021-09-04] MEDS: Atorvastatin Calcium 80 MG TABLET PO (08:05)
[2021-09-04] MEDS: Ranolazine 500 MG TAB.ER.12H PO (08:06)
[2021-09-04] MEDS: Metoprolol Succinate ER 50 MG TAB.ER.24H PO (08:06)
[2021-09-04] MEDS: Omeprazole 20 MG CAPSULE.DR PO (08:06)
[2021-09-04] MEDS: Torsemide 20 MG TABLET 40 MG PO ×3 (08:06→16:07)
[2021-09-04] MEDS: Levothyroxine Sodium 150 MCG TABLET PO (08:07)
--- NOTE | 2021-09-04 08:10 | PC.NURSE ---
pt a/o x 3 no sob/bryce noted skin pink warm dry. picc line to l arm appears intact.
[2021-09-04] MEDS: Morphine Sulfate Immed Release 15 MG TABLET PO ×2 (08:16→17:09)
--- NOTE | 2021-09-04 08:59 | MHC.CM.ED ---
Addendum entered by Christine Ryan 09/04/21 11:02: Patient received Pfizer vaccines on 10/29 and 11/21. Received Moderna booster on 06/18. Original Note: Patient remains in ER. [place] [facility] [place] Returned to the ER due to weakness and falls. 09/02 positive for Covid. Physical therapy eval completed. Short term rehab is recommended. Patient still needs 4 more weeks of IV antibiotics. Referral broadcasted in [employer] to all facilities within 50 miles of patient's home that can accept positive Covid patients. Continue to monitor for d/c needs.
[2021-09-04] MEDS: vancomycin HCL 1,250 MG in 0.9 % Sodium Chloride 250 ML 166.67 MG IV (11:33)
[2021-09-04 11:34] VITALS: BP 137/66; PULSE 600; RESP 17; TEMP 36.8; O2SAT 94
[2021-09-04 14:16] VITALS: BP 121/61; PULSE 60; RESP 14; TEMP 37; O2SAT 100
--- NOTE | 2021-09-04 14:48 | MHC.CM.ED ---
[facility] and [facility] are only facilities that are able to offer a bed. Accepted bed at [facility]. Patient can leave at 530pm. [facility] booked. [facility] with chart. Patient, Katheryn RN and Ayah DOYLE aware. Attempted to notify patient's sig other, Inge via telephone at [phone]. Left voicemail with above information and contact info provided. Continue to monitor for d/c needs.
[2021-09-04 15:28] LABS: Creatinine Clr Calc Pharmacy 78.5; Estimated Glomerular Filt Rate 60
[2021-09-04 15:29] LABS: Anion Gap 14 (12-20); Blood Urea Nitrogen 15 mg/dL (9-16); Calcium 8.9 mg/dL (8.4-10.2); Carbon Dioxide 38 mmol/L (22-29); Chloride 93 mmol/L (96-108); Creatinine Clr Calc Pharmacy 78.5; Estimated Glomerular Filt Rate 60; Glucose Random 137 mg/dL (60-115); Potassium 4.2 mmol/L (3.3-5.1); Sodium 141 mmol/L (135-145)
[2021-09-04 16:08] VITALS: BP 117/40; PULSE 55; RESP 18; O2SAT 99
== END 2021-09-04 17:44 | disposition skilled nursing facility (03) ==
PROVIDERS: Nurse Practitioner Family; Emergency Provider Emergency Medicine
DX: U07.1 COVID-19 (principal); R78.81 Bacteremia; R53.1 Weakness; S80.212A Abrasion, left knee, initial encounter; W06.XXXA Fall from bed, initial encounter; M54.9 Dorsalgia, unspecified; E11.9 Type 2 diabetes mellitus without complications; I50.9 Heart failure, unspecified; Z95.0 Presence of cardiac pacemaker; Y93.89 Activity, other specified; Y92.230 Patient room in hospital as the place of occurrence of the external cause; Y99.9 Unspecified external cause status; Z79.4 Long term (current) use of insulin
CPT/HCPCS: 36415; 80048; 80202; 82565; 82947; 87635; 96365; 97163; 99284; 99285; J3370